=== PATIENT | female | born 1975 ===

== ENCOUNTER 2016-10-31 09:46 | Emergency (ER) | payer OTHER ==
[2016-10-31 10:03] VITALS: BP 128/69; PULSE 144; TEMP 97; BMI 20.3
[2016-10-31 10:07] VITALS: O2SAT 98
[2016-10-31] MEDS ORDERED: Sodium Chloride 0.9% 1,000 ML IV STA (10:22)
[2016-10-31 11:05] LABS: BASO # 0.1 K/uL (0.0-0.2); EOS # 0.1 K/uL (0.0-0.7); EOS % 0.8 % (0.0-4.0); HEMATOCRIT 41.1 % (34.0-47.0); LYMPH # 1.9 K/uL (1.0-4.3); LYMPH % 28.1 % (20.0-40.0); MEAN CELL VOLUME 95.2 fl (81.0-99.0); MEAN CORPUSCULAR HEMOGLOBIN 31.6 pg (27.0-31.0); MEAN CORPUSCULAR HGB CONC 33.2 g/dL (33.0-37.0); MONO # 0.5 K/uL (0.0-0.8); MONO % 7.3 % (0.0-10.0); NEUT # 4.3 K/uL (1.8-7.0); NEUT % 62.8 % (50.0-75.0); NRBC % 0.3 % (0.0-0.0); RED CELL DISTRIBUTION WIDTH 14.2 % (11.5-14.5); WHITE BLOOD COUNT 6.8 K/uL (4.8-10.8)
--- NOTE | 2016-10-31 11:13 | ED PDOC ---
HPI: Female Pain Time Seen by Provider: 10/31/16 10:07 Chief Complaint (Nursing): Female Genitourinary Chief Complaint (Provider): Vaginal bleeding History Per: Patient History/Exam Limitations: no limitations Onset/Duration Of Symptoms: Days (5) Current Symptoms Are (Timing): Still Present Severity: Mild Additional Complaint(s): Vaginal bleeding for 5 days. Mild spotting. Period is suppose to come next week. Has no pain. No pelvic pain, weakness. No headache, dyspnea, dysuria. No fever. Has IUD in for 7 years and wants ER to take it out. Has tachycardia and has been seen by the dish carrier for it. States it is normal for her and gets high when nervous. Past Medical History Reviewed: Nursing Documentation, Vital Signs Vital Signs: Last Vital Signs Temp 97 F L 10/31/16 10:02 Pulse 144 H 10/31/16 10:02 Resp BP 128/69 10/31/16 10:02 Pulse Ox 98 10/31/16 10:04 - Medical History PMH: No Chronic Diseases - Surgical History Surgical History: No Surg Hx - Family History Family History: States: Unknown Family Hx - Living Arrangements Living Arrangements: With Family - Immunization History Hx Tetanus Toxoid Vaccination: No Hx Influenza Vaccination: No Hx Pneumococcal Vaccination: No - Allergies Allergies/Adverse Reactions: Allergies Allergy/AdvReac Type Severity Reaction Status Date / Time No Known Allergies Allergy Verified 10/31/16 10:03 Review of Systems Constitutional: Negative for: Weakness Cardiovascular: Negative for: Chest Pain, Palpitations Gastrointestinal: Negative for: Nausea, Vomiting, Abdominal Pain, Diarrhea Genitourinary Female: Positive for: Vaginal Bleeding. Negative for: Dysuria, Frequency, Vaginal Discharge Musculoskeletal: Negative for: Neck Pain, Shoulder Pain, Arm Pain Skin: Negative for: Rash Neurological: Negative for: Weakness Physical Exam - Reviewed Nursing Documentation Reviewed: Yes Vital Signs Reviewed: Yes - Physical Exam Appears: Positive for: Well, Non-toxic, No Acute Distress Neck: Positive for: Normal, Painless ROM, Supple Cardiovascular/Chest: Positive for: Chest Non Tender, Tachycardia (sinus). Negative for: Edema Respiratory: Positive for: CNT, Normal Breath Sounds Gastrointestinal/Abdominal: Positive for: Normal Exam, Bowel Sounds, Soft. Negative for: Tenderness Back: Positive for: Normal Inspection. Negative for: L CVA Tenderness, R CVA Tenderness Extremity: Positive for: Normal ROM. Negative for: Tenderness, Pedal Edema Neurologic/Psych: Positive for: Alert, Oriented - Laboratory Results Result Diagrams: 10/31/16 10:30 10/31/16 10:50 Interpretation Of Abn Labs: no acute - ECG O2 Sat by Pulse Oximetry: 98 Pulse Ox Interpretation: Normal - CT Scan/US US Other Rad Studies (CT/US): Read By Radiologist Other Rad Interpretation: IUD in place - Progress ED Course And Treament: 1257: Stable. AAOx3. Pain free. Tolerated PO. Fu with obgyn. Disposition - Clinical Impression Clinical Impression: Vaginal bleeding - Patient ED Disposition Is Patient to be Admitted: No Counseled Patient/Family Regarding: Studies Performed, Diagnosis, Need For Followup - Disposition [facility] - [facility]16 Disposition: Routine/Home Disposition Time: 12:58 Condition: FAIR Additional Instructions: Return if not better in 3 days. Instructions: Dysfunctional Uterine Bleeding (ED) Print Language: CITIZEN OF [place]
[2016-10-31 11:19] LABS: ALB/GLOB RATIO 1.2 (1.0-2.1); ALKALINE PHOSPHATASE 77 U/L (38-126); ALT/SGPT 54 U/L (9-52); AST/SGOT 36 U/L (14-36); BILIRUBIN,TOTAL 0.3 mg/dl (0.2-1.3); BLOOD UREA NITROGEN 8 mg/dl (7-17); CARBON DIOXIDE 25 mmol/L (22-30); CHLORIDE 104 mmol/L (98-107); GFR AFRICAN-AMERICAN > 60; GLUCOSE,RANDOM 120 mg/dL (65-105); POTASSIUM 4.1 MMOL/L (3.6-5.0); SODIUM 138 mmol/l (132-148); TOTAL PROTEIN 7.4 G/DL (6.3-8.2)
--- NOTE | 2016-10-31 12:42 | US ---
HISTORY: Vaginal bleeding. LMP 10/12/2016. COMPARISON: None available. TECHNIQUE: Transabdominal, transvaginal. Real -time technique with 2D, duplex and color Doppler. FINDINGS: UTERUS: Measures 13.8 x 6.6 x 5.4 cm. Normal in size and appearance. No fibroid or other mass lesion seen. ENDOMETRIUM: Measures 4.6 mm in diameter. Intrauterine contraceptive device (IUD) identified CERVIX: No cervical abnormality identified. RIGHT OVARY: Measures 2.4 x 4.5 cm. No solid mass. Normal flow. Multiple subcentimeter follicles. LEFT OVARY: Measures 2.1 x 3.6 cm. No solid mass. Normal flow. Simple cyst 1.9 x 2.3 cm. FREE FLUID: No significant free fluid noted. OTHER FINDINGS: None. IMPRESSION: No acute findings related to/accounting for the clinical presentation. Additional benign and/or incidental findings described above.
== END 2016-10-31 13:09 | disposition home or self-care (01) ==
LOC: H.ER 09:46
DX: N93.8 Other specified abnormal uterine and vaginal bleeding (principal)

== ENCOUNTER 2018-10-17 06:38 | Emergency (ER) | payer OTHER ==
[2018-10-17 06:38] VITALS: BMI 20.3
--- NOTE | 2018-10-17 08:21 | ED PDOC ---
HPI: General Adult Time Seen by Provider: 10/17/18 07:03 Chief Complaint (Nursing): Headache Chief Complaint (Provider): Neck Pain History Per: Patient History/Exam Limitations: no limitations Onset/Duration Of Symptoms: Days (x2-3 ) Current Symptoms Are (Timing): Still Present Additional Complaint(s): Patient is a 42 y/o female with a PMHx of breast cancer who was brought into the ED by EMS for evaluation of left-sided neck pain for the past two to three days. Patient was given a hard cervical collar on the field to keep neck in place. Patient reports no inciting factors, recent injuries, falls, or over exertion. Patient claims the pain has worsened in the last 24 hours. Patient took one dose of Percocet, this morning at 3:30, followed by 400 mg of Ibuprofen. Patient denies fever, photophobia, and weakness in upper extremities. Of note, patient has been getting radiation treatment for her breast cancer in [place]. PCP: Salvador Epperson Past Medical History Reviewed: Historical Data, Nursing Documentation, Vital Signs Vital Signs: Last Vital Signs Temp 98.3 F 10/17/18 06:46 Pulse 99 H 10/17/18 06:46 Resp 17 10/17/18 06:46 BP 134/90 10/17/18 06:46 Pulse Ox 97 10/17/18 06:46 - Medical History Other PMH: Breast cancer - Surgical History Surgical History: No Surg Hx - Family History Family History: States: Unknown Family Hx - Immunization History Hx Tetanus Toxoid Vaccination: No Hx Influenza Vaccination: No Hx Pneumococcal Vaccination: No - Home Medications Home Medications: Ambulatory Orders Medication Instructions Recorded Cyclobenzaprine [Cyclobenzaprine 10 mg PO TID #30 tab 10/17/18 HCl] Naproxen [Naprosyn] 500 mg PO BID PRN #20 tablet 10/17/18 - Allergies Allergies/Adverse Reactions: Allergies Allergy/AdvReac Type Severity Reaction Status Date / Time No Known Allergies Allergy Verified 10/31/16 10:03 Review of Systems ROS Statement: Except As Marked, All Systems Reviewed And Found Negative Constitutional: Negative for: Fever, Weakness (in upper extremities) Eyes: Negative for: Vision Change (or photophobia) Musculoskeletal: Positive for: Neck Pain (on left side). Negative for: Other (raidation of pain to upper extremities) Physical Exam - Reviewed Nursing Documentation Reviewed: Yes Vital Signs Reviewed: Yes - Physical Exam Appears: Positive for: No Acute Distress Head Exam: Positive for: ATRAUMATIC, NORMAL INSPECTION, NORMOCEPHALIC Skin: Positive for: Normal Color, Warm, DRY Eye Exam: Positive for: EOMI, Normal appearance, PERRL Neck: Positive for: Normal (with focal tenderness in left side of neck towards base of skull) Cardiovascular/Chest: Positive for: Regular Rate, Rhythm. Negative for: Murmur Respiratory: Positive for: Normal Breath Sounds. Negative for: Respiratory Distress Extremity: Positive for: Normal ROM, Other (Hand vamp stitcher are normal; 5/5 motor strength bilaterally) Neurologic/Psych: Positive for: Alert, Oriented - Laboratory Results Result Diagrams: 10/17/18 07:40 10/17/18 09:21 - ECG ECG: Positive for: Viewed By Me ECG Rhythm: Positive for: Normal QRS O2 Sat by Pulse Oximetry: 97 (RA) Pulse Ox Interpretation: Normal - Radiology X-Ray: Viewed By Me X-Ray Interpretation: No Acute Disease (straightening c/w spasm) - Progress Re-evaluation Time: 10:45 Condition: Improving,but remains with symptoms Medical Decision Making Medical Decision Making: Time: 731 Impression: Acute Neck Pain DDx includes but not limited to muscle spasm (possibly caused by breast cancer); r/o fracture. Plan: BMP Test CBC Cervical Spine [Rad] Flexeril 10mg PO Toradol 30mg IVP Urine Culture IV Insertion UA Scribe Attestation: Documented by Feliciano Leos, acting as a scribe for Shannan Fritz MD. Provider Scribe Attestation: All medical record entries made by the Scribe were at my direction and personally dictated by me. I have reviewed the chart and agree that the record a ccurately reflects my personal performance of the history, physical exam, medical decision making, and the department course for this patient. I have also personally directed, reviewed, and agree with the discharge instructions and disposition. Disposition - Clinical Impression Clinical Impression: Muscle spasms of neck - Patient ED Disposition Is Patient to be Admitted: No Doctor Will See Patient In The: Office Counseled Patient/Family Regarding: Diagnosis, Need For Followup, Rx Given - Disposition Disposition: Routine/Home Disposition Time: 10:45 Condition: IMPROVED Prescriptions: Cyclobenzaprine [Cyclobenzaprine HCl] 10 mg PO TID #30 tab Naproxen [Naprosyn] 500 mg PO BID PRN #20 tablet PRN Reason: Pain, Moderate (4-7) Instructions: Muscle Spasms (DC) Forms: [facility] (Bengali) Print Language: CROATIAN - POA Present On Arrival: None
[2018-10-17 08:33] LABS: BASO % 0.3 % (0.0-2.0); EOS # 0.1 K/uL (0.0-0.7); EOS % 0.8 % (0.0-4.0); LYMPH # 0.2 K/uL (1.0-4.3); LYMPH % 2.5 % (20.0-40.0); MEAN CELL VOLUME 83.7 fl (81.0-99.0); MEAN CORPUSCULAR HEMOGLOBIN 27.3 pg (27.0-31.0); MEAN CORPUSCULAR HGB CONC 32.6 g/dL (33.0-37.0); MEAN PLATELET VOLUME 8.1 fl (7.2-11.7); MONO # 0.7 K/uL (0.0-0.8); MONO % 9.9 % (0.0-10.0); NEUT # 6.2 K/uL (1.8-7.0); NEUT % 86.5 % (50.0-75.0); PLATELET COUNT 397 K/uL (130-400); RBC 4.77 Mil/uL (3.80-5.20); RED CELL DISTRIBUTION WIDTH 18.4 % (11.5-14.5); WHITE BLOOD COUNT 7.2 K/uL (4.8-10.8)
[2018-10-17 10:10] LABS: SQUAMOUS EPITHIAL 1 /hpf (0-5); URINE AMORPHOUS SEDIMENT RARE /ul (<OCC); URINE BACTERIA RARE (<OCC); URINE BILIRUBIN NEGATIVE (NEGATIVE); URINE BLOOD NEGATIVE (NEGATIVE); URINE CLARITY SLIGHTY-CLOUDY (Clear); URINE COLOR YELLOW (YELLOW); URINE GLUCOSE (UA) NEG (NEGATIVE); URINE LEUKOCYTE ESTERASE NEG Leu/uL (Negative); URINE PROTEIN NEGATIVE (NEGATIVE); URINE UROBILINOGEN 0.2-1.0 mg/dL (0.2-1.0)
[2018-10-17 10:19] LABS: BLOOD UREA NITROGEN 5 mg/dl (7-17); CALCIUM 10.4 mg/dL (8.4-10.2); GFR NON-AFRICAN AMERICAN > 60
[2018-10-17 11:35] VITALS: BP 115/74; PULSE 75; RESP 16; TEMP 97.9; O2SAT 99
--- NOTE | 2018-10-17 11:47 | RAD ---
Date of service: 10/17/2018 PROCEDURE: Cervical Spine Radiographs. HISTORY: Pain. COMPARISON: None available. FINDINGS: BONES: Alignment maintained. No fracture. Dens Intact. DISC SPACES: Mild multilevel disc space narrowing. SOFT TISSUES: Normal. No prevertebral soft tissue swelling. OTHER FINDINGS: Patchy interstitial changes in the lungs. IMPRESSION: No acute fracture. Multilevel degenerative changes. Interstitial changes in the lungs, possibly representing metastatic disease. Correlate with prior imaging, if any. Alternatively, CT scan can be obtained for further evaluation. ER notification submitted electronically.
[2018-10-17 12:39] LABS: ANISOCYTOSIS SLIGHT; EOSINOPHIL 2 % (0-7); LYMPHOCYTE 4 % (20-50); MONOCYTE 9 % (0-10); NEUTROPHIL 85 % (42-75); PLATELET ESTIMATE NORMAL (NORMAL); TOTAL CELLS COUNTED 100
== END 2018-10-17 11:35 | disposition home or self-care (01) ==
LOC: H.ER 06:38
DX: M62.838 Other muscle spasm (principal); Z85.3 Personal history of malignant neoplasm of breast
CPT/HCPCS: 72052; 80048; 81003; 81025; 85025; 87086; 96374; 99284; J1885

== ENCOUNTER 2018-12-10 11:29 | Inpatient (IN) | payer OTHER ==
[2018-12-10 11:40] VITALS: BMI 18.8
[2018-12-10] MEDS ORDERED: Sodium Chloride 0.9% 1,000 ML IV STA (12:18)
[2018-12-10 12:35] LABS: BASO % 0.2 % (0.0-2.0); EOS % 0.4 % (0.0-4.0); HEMOGLOBIN 12.5 g/dL (12.0-16.0); LYMPH # 0.1 K/uL (1.0-4.3); LYMPH % 2.7 % (20.0-40.0); MEAN CELL VOLUME 86.7 fl (81.0-99.0); MEAN CORPUSCULAR HEMOGLOBIN 28.4 pg (27.0-31.0); MEAN CORPUSCULAR HGB CONC 32.8 g/dL (33.0-37.0); MONO # 0.4 K/uL (0.0-0.8); MONO % 9.3 % (0.0-10.0); NEUT % 87.4 % (50.0-75.0); NRBC % 0.3 % (0.0-0.0); PLATELET COUNT 328 K/uL (130-400); RBC 4.38 Mil/uL (3.80-5.20); RED CELL DISTRIBUTION WIDTH 18.6 % (11.5-14.5); WHITE BLOOD COUNT 4.5 K/uL (4.8-10.8)
--- NOTE | 2018-12-10 12:44 | ED PDOC ---
HPI: SOB/CHF/COPD Time Seen by Provider: 12/10/18 11:53 Chief Complaint (Nursing): Shortness Of Breath Chief Complaint (Provider): Chest Pain History Per: Patient, Diagnostics Tech (Kiara ) History/Exam Limitations: no limitations Onset/Duration Of Symptoms: Days Current Symptoms Are (Timing): Still Present Associated Symptoms: Chest Pain, Productive Cough. denies: Fever, Leg/Calf Pain Additional Complaint(s): 43 year old female with a past medical history of breast cancer who is presenting to the Ed for evaluation of chest pain described as tightness ongoing for about a week. Patient states that she also has a cough productive of white sputum but denies any fevers or leg pain. She reports that she had her last radiation treatment 3 days ago and reports similar symptoms in the past that were less severe. Patient offers no other medical complaints at this time. PMD: Salvador Andino Radiation Oncologist: Dr. Jesse Delvalle [phone] Past Medical History Reviewed: Historical Data, Nursing Documentation, Vital Signs Vital Signs: Last Vital Signs Temp 98 F 12/10/18 11:42 Pulse 125 H 12/10/18 11:42 Resp 16 12/10/18 11:42 BP 127/88 12/10/18 11:42 Pulse Ox 93 L 12/10/18 11:42 Primary Care Physician: NO FAMILY PROVIDER - Medical History Other PMH: breast cancer - Surgical History Surgical History: No Surg Hx - Family History Family History: States: Unknown Family Hx - Social History Current smoker - smoking cessation education provided: No Alcohol: None Drugs: Denies - Immunization History Hx Tetanus Toxoid Vaccination: No Hx Influenza Vaccination: No Hx Pneumococcal Vaccination: No - Allergies Allergies/Adverse Reactions: Allergies Allergy/AdvReac Type Severity Reaction Status Date / Time No Known Allergies Allergy Verified 10/31/16 10:03 Review of Systems ROS Statement: Except As Marked, All Systems Reviewed And Found Negative Constitutional: Negative for: Fever Cardiovascular: Positive for: Chest Pain Respiratory: Positive for: Cough, Sputum Musculoskeletal: Negative for: Leg Pain Physical Exam - Reviewed Nursing Documentation Reviewed: Yes Vital Signs Reviewed: Yes - Physical Exam Appears: Positive for: Non-toxic, No Acute Distress Head Exam: Positive for: ATRAUMATIC, NORMAL INSPECTION, NORMOCEPHALIC Skin: Positive for: Normal Color, Warm, DRY Eye Exam: Positive for: EOMI, Normal appearance, PERRL ENT: Positive for: Normal ENT Inspection Neck: Positive for: Normal, Painless ROM Cardiovascular/Chest: Positive for: Tachycardia (but regular rhythm ), Other (CHEST WALL: Large ulcerated mass R breast/chest wall). Negative for: Murmur Respiratory: Positive for: Normal Breath Sounds. Negative for: Respiratory Distress Gastrointestinal/Abdominal: Positive for: Normal Exam, Soft. Negative for: Tenderness Back: Positive for: Normal Inspection. Negative for: L CVA Tenderness, R CVA Tenderness, Vertebral Tenderness Extremity: Positive for: Normal ROM. Negative for: Deformity, Swelling Neurological/Psych: Positive for: Awake, Alert, Normal Tone, Oriented. Negative for: Motor/Sensory Deficits - Laboratory Results Result Diagrams: 12/10/18 12:00 12/10/18 12:00 - ECG O2 Sat by Pulse Oximetry: 93 (RA) Medical Decision Making Medical Decision Making: Time: 12:15 Plan: --CT Angio Chest --EKG --CMP --Troponin --ED Urine --ED Urine Dipstick --CBC --Coags --CXR --IV Fluids --Blood Culture --Urinalysis Accession No. : [id number] Patient Name / ID : ALIN SANDRA / [id number] Exam Date : 12/10/2018 13:27:36 ( Approved ) Study Comment : Sex / Age : F / 43Y Creator : Gaudencio Hernandez MD Dictator : Gaudencio Hernandez MD Store Person : Crusher Loader Equipment Operator : Gaudencio Hernandez MD Approver2 : Report Date : 12/10/2018 14:13:23 My Comment : Date of service: 12/10/2018 HISTORY: Shortness of breath. COMPARISON: December 10, 2018. CT pulmonary angiogram. FINDINGS: LUNGS: Multifocal infiltrates difficult to differentiate from multiple pulmonary nodules. PLEURA: Left pleural effusion inseparable from adjacent consolidative change. CARDIOVASCULAR: No atherosclerotic calcification present Normal. OSSEOUS STRUCTURES: No significant abnormalities. VISUALIZED UPPER ABDOMEN: Normal. OTHER FINDINGS: None. IMPRESSION: Pulmonary metastatic disease. Large left pleural effusion. Accession No. : [id number] Patient Name / ID : ALIN SANDRA / [id number] Exam Date : 12/10/2018 13:14:58 ( Approved ) Study Comment : Sex / Age : F / 43Y Creator : Braxton Cook MD Dictator : Braxton Cook MD Store Person : Crusher Loader Equipment Operator : Braxton Cook MD Approver2 : Report Date : 12/10/2018 13:57:39 My Comment : Date of service: 12/10/2018 PROCEDURE: CT Chest with contrast (Pulmonary Angiogram) HISTORY: CP COMPARISON: None available. TECHNIQUE: Axial computed tomography images were obtained of the chest in the pulmonary arterial phase of enhancement. Coronal and sagittal reformatted images were created and reviewed. Intravenous contrast dose: Visipaque 320, 100 cc Radiation dose: Total exam DLP = 208.43 mGy-cm. This CT exam was performed using one or more of the following dose reduction techniques: Automated exposure control, adjustment of the mA and/or kV according to patient size, and/or use of iterative reconstruction technique. FINDINGS: PULMONARY ARTERIES: No pulmonary embolism identified bilaterally. However there at least partial encasement of multiple proximal segmental pulmonary artery branches bilaterally due to metastasis/lymphadenopathy. Same is true for multiple proximal segmental pulmonary veins bilaterally. AORTA: No acute findings. No thoracic aortic aneurysm. No aortic atherosclerotic calcification or mural plaque present. LUNGS: There are innumerable bilateral pulmonary masses compatible with metastases with a large right breast mass with likely ulceration at its mid to inferior extent predominantly, invading through the right chest wall (including anterior segment right 6th rib) and into the right upper lobe directly. The central airways appear patent though there is a least partial encasement of numerous proximal segmental airways bilaterally by masses and lymphadenopathy. Mass severely strictures right upper lobe bronchus best seen image 39 series 5. PLEURAL SPACES: There is a large left pleural effusion with a mild right pleural effusion. Compression atelectasis affects the left greater than right lower lobes with confluent masses favored over infiltrates at the lingula. HEART: Unremarkable. No cardiomegaly. No significant pericardial effusion. LYMPH NODES: Bilateral hilar lymphadenopathy identified on a moderate basis [id number] subcarinal lymphadenopathy difficult to exclude. BONES, CHEST WALL: Glass opacity within the right pedicle and spinous process of T11 is highly suspicious for metastasis. Old fractures of the lateral left 8th and right 7th ribs are identified.. As mentioned above, there is partial erosion of the anterior segment right 6th rib from direct right breast mass extension into the right upper lobe. OTHER FINDINGS: Small lucency representing a cyst or nodule left thyroid lobe. Upper abdomen sections unremarkable as imaged. IMPRESSION: 1. No definite pulmonary embolus identified. 2. Large right breast mass is appreciated with superficial ulceration and deep extension through the right chest wall into the right upper lobe with innumerable pulmonary metastases bilaterally. There is a least partial encasement of multiple proximal segmental pulmonary arteries and veins as well as airways including complete encasement of the cysts right upper lobe bronchus by mass, as discussed above. 3. Large left pleural effusion and mild right pleural effusion, with both exerting compression atelectasis at the bilateral lower lobes. 4. T11 posterior element metastasis suspected. 5. Small lucency left thyroid lobe. Scribe Attestation: Documented by Basilia Hester, acting as a scribe for Sadia Lovelace MD. Provider Scribe Attestation: All medical record entries made by the Scribe were at my direction and personally dictated by me. I have reviewed the chart and agree that the record accurately reflects my personal performance of the history, physical exam, medical decision making, and the department course for this patient. I have also personally directed, reviewed, and agree with the discharge instructions and disposition. Disposition - Clinical Impression Clinical Impression: Breast carcinoma metastatic to multiple sites, Pleural effusion - Patient ED Disposition Is Patient to be Admitted: Yes - Disposition Referrals: FAMILY PROVIDER,NO [Primary Care Provider] - Disposition Time: 14:26 Condition: STABLE Forms: [employer] ([place]) - Pt Status Changed To: Hospital Disposition Of: Inpatient - Admit Certification Admit to Inpatient:: After my assessment, the patient will require hospitalization for at least two midnights. This is because of the severity of symptoms shown, intensity of services needed, and/or the medical risk in this patient being treated as an outpatient. - POA Present On Arrival: None
[2018-12-10 12:49] LABS: ALT/SGPT 19 U/L (9-52); AST/SGOT 72 U/L (14-36); BLOOD UREA NITROGEN 4 mg/dl (7-17); CALCIUM 10.1 mg/dL (8.4-10.2); GFR NON-AFRICAN AMERICAN > 60
[2018-12-10 12:57] LABS: SQUAMOUS EPITHIAL 2 /hpf (0-5); URINE BILIRUBIN NEGATIVE (NEGATIVE); URINE BLOOD NEGATIVE (NEGATIVE); URINE CLARITY CLEAR (Clear); URINE COLOR STRAW (YELLOW); URINE GLUCOSE (UA) NEG (NEGATIVE); URINE LEUKOCYTE ESTERASE NEG Leu/uL (Negative); URINE PROTEIN NEGATIVE (NEGATIVE); URINE UROBILINOGEN 0.2-1.0 mg/dL (0.2-1.0)
[2018-12-10] MEDS ORDERED: Iodixanol 320 MG/ML 100 ML BOTTLE IV ONE (13:00)
[2018-12-10] MEDS ORDERED: Sodium Chloride 0.9% 50 ML IV ONE (13:01)
--- NOTE | 2018-12-10 14:01 | CT ---
Date of service: 12/10/2018 PROCEDURE: CT Chest with contrast (Pulmonary Angiogram) HISTORY: CP COMPARISON: None available. TECHNIQUE: Axial computed tomography images were obtained of the chest in the pulmonary arterial phase of enhancement. Coronal and sagittal reformatted images were created and reviewed. Intravenous contrast dose: Visipaque 320, 100 cc Radiation dose: Total exam DLP = 208.43 mGy-cm. This CT exam was performed using one or more of the following dose reduction techniques: Automated exposure control, adjustment of the mA and/or kV according to patient size, and/or use of iterative reconstruction technique. FINDINGS: PULMONARY ARTERIES: No pulmonary embolism identified bilaterally. However there at least partial encasement of multiple proximal segmental pulmonary artery branches bilaterally due to metastasis/lymphadenopathy. Same is true for multiple proximal segmental pulmonary veins bilaterally. AORTA: No acute findings. No thoracic aortic aneurysm. No aortic atherosclerotic calcification or mural plaque present. LUNGS: There are innumerable bilateral pulmonary masses compatible with metastases with a large right breast mass with likely ulceration at its mid to inferior extent predominantly, invading through the right chest wall (including anterior segment right 6th rib) and into the right upper lobe directly. The central airways appear patent though there is a least partial encasement of numerous proximal segmental airways bilaterally by masses and lymphadenopathy. Mass severely strictures right upper lobe bronchus best seen image 39 series 5. PLEURAL SPACES: There is a large left pleural effusion with a mild right pleural effusion. Compression atelectasis affects the left greater than right lower lobes with confluent masses favored over infiltrates at the lingula. HEART: Unremarkable. No cardiomegaly. No significant pericardial effusion. LYMPH NODES: Bilateral hilar lymphadenopathy identified on a moderate basis [id number] subcarinal lymphadenopathy difficult to exclude. BONES, CHEST WALL: Glass opacity within the right pedicle and spinous process of T11 is highly suspicious for metastasis. Old fractures of the lateral left 8th and right 7th ribs are identified.. As mentioned above, there is partial erosion of the anterior segment right 6th rib from direct right breast mass extension into the right upper lobe. OTHER FINDINGS: Small lucency representing a cyst or nodule left thyroid lobe. Upper abdomen sections unremarkable as imaged. IMPRESSION: 1. No definite pulmonary embolus identified. 2. Large right breast mass is appreciated with superficial ulceration and deep extension through the right chest wall into the right upper lobe with innumerable pulmonary metastases bilaterally. There is a least partial encasement of multiple proximal segmental pulmonary arteries and veins as well as airways including complete encasement of the cysts right upper lobe bronchus by mass, as discussed above. 3. Large left pleural effusion and mild right pleural effusion, with both exerting compression atelectasis at the bilateral lower lobes. 4. T11 posterior element metastasis suspected. 5. Small lucency left thyroid lobe.
--- NOTE | 2018-12-10 14:16 | RAD ---
Date of service: 12/10/2018 HISTORY: Shortness of breath. COMPARISON: December 10, 2018. CT pulmonary angiogram. FINDINGS: LUNGS: Multifocal infiltrates difficult to differentiate from multiple pulmonary nodules. PLEURA: Left pleural effusion inseparable from adjacent consolidative change. CARDIOVASCULAR: No atherosclerotic calcification present Normal. OSSEOUS STRUCTURES: No significant abnormalities. VISUALIZED UPPER ABDOMEN: Normal. OTHER FINDINGS: None. IMPRESSION: Pulmonary metastatic disease. Large left pleural effusion.
[2018-12-10 14:41] LABS: BANDS 1 % (0-2); LYMPHOCYTE 2 % (20-50); MONOCYTE 10 % (0-10); NEUTROPHIL 87 % (42-75); PLATELET ESTIMATE NORMAL (NORMAL); TOTAL CELLS COUNTED 100
[2018-12-10 14:42] LABS: ANISOCYTOSIS SLIGHT; OVALOCYTES SLIGHT
--- NOTE | 2018-12-10 18:24 | CARD ---
APPROVED REPORT Date of service: 12/10/2018 EKG Measurement Heart [id number] <Conclusion> Sinus tachycardia Nonspecific T wave abnormality Abnormal ECG
[2018-12-10] MEDS ORDERED: Albuterol-Ipratrop 3 mg / 0.5 (3 ml) UD INH PRN (18:34)
[2018-12-11 06:11] LABS: HEMOGLOBIN 11.4 g/dL (12.0-16.0); MEAN CELL VOLUME 87.2 fl (81.0-99.0); MEAN CORPUSCULAR HEMOGLOBIN 28.5 pg (27.0-31.0); MEAN CORPUSCULAR HGB CONC 32.7 g/dL (33.0-37.0); RBC 4.01 Mil/uL (3.80-5.20); RED CELL DISTRIBUTION WIDTH 18.3 % (11.5-14.5)
[2018-12-11 06:23] LABS: ALBUMIN 3.7 g/dL (3.5-5.0); ALT/SGPT 17 U/L (9-52); AST/SGOT 65 U/L (14-36); BLOOD UREA NITROGEN 3 mg/dl (7-17); GFR NON-AFRICAN AMERICAN > 60
[2018-12-11] MEDS: Enoxaparin 40 mg Syringe SC SCH (10:20)
[2018-12-11 20:41] LABS: INR 1.2; PARTIAL THROMBOPLASTIN TIME 33.9 Seconds (25.6-37.1); PROTHROMBIN TIME 13.1 Seconds (9.8-13.1)
--- NOTE | 2018-12-11 23:22 | CP.PCM.CON ---
History of Present Illness - History of Present Illness History of Present Illness: 43 year old female with a history of breast cancer diagnosed in 2016 currently on radiation admitted with pleural effusion. The patient notes to being diagnosed with breast cancer in 2016 at [facility] with recommendation for neoadjuvant chemotherapy. She deferred therapy. She notes to recently starting radiation and breast mass shrinking. She notes to progressive shortness of breath which prompted her to come to the hospital. A CT chest revealed a right sided breast tumor eroding through the chest wall and involving the lung. She has evidence of bilateral lung metastasis and large left pleural effusion. She also has a T11 lesion, likely metastasis. Past medical history: Breast cancer Past surgical history: Denies Family history: Denies hematologic and oncologic problems Social history: Denies tobacco, alcohol, and illicit drug use. Allergies: NKA Review of system: All remaining review of systems including HEENT, cardiovascular, respiratory, gastrointestinal, genitourinary, musculoskeletal, dermatologic, neurologic, and psychiatric are negative unless mentioned in the HPI. Past Patient History - Past Medical History & Family History Past Medical History?: Yes - Past Social History Smoking Status: Never Smoked - CARDIAC Hx Cardiac Disorders: No - HEMATOLOGICAL/ONCOLOGICAL Other/Comment: breast cancer - MUSCULOSKELETAL/RHEUMATOLOGICAL Hx Falls: No - GENITOURINARY/GYNECOLOGICAL Other/Comment: breast CA on radiation. - PSYCHIATRIC Hx Substance Use: No - ANESTHESIA Hx Anesthesia: Yes Hx Anesthesia Reactions: No Hx Malignant Hyperthermia: No Meds Allergies/Adverse Reactions: Allergies Allergy/AdvReac Type Severity Reaction Status Date / Time No Known Allergies Allergy Verified 10/31/16 10:03 - Medications Medications: Current Medications Albuterol/Ipratropium (Duoneb 3 Mg/0.5 Mg (3 Ml) Ud) 3 ml INH RQ6 PRN PRN Reason: Shortness of Breath Docusate Sodium (Colace) 100 mg PO BID [facility] Last Admin: 12/11/18 17:35 Dose: 100 mg Enoxaparin Sodium (Lovenox) 40 mg SC DAILY [facility]; Protocol Last Admin: 12/11/18 10:20 Dose: 40 mg Morphine Sulfate (Morphine) 1 mg IVP Q4 PRN PRN Reason: Pain, moderate (4-7) Last Admin: 12/11/18 21:48 Dose: 1 mg Physical Exam - Head Exam Head Exam: ATRAUMATIC - Eye Exam Eye Exam: Normal appearance - ENT Exam ENT Exam: Mucous Membranes Dry - Respiratory Exam Respiratory Exam: Decreased Breath Sounds - Cardiovascular Exam Cardiovascular Exam: +S1, +S2 - GI/Abdominal Exam GI & Abdominal Exam: Normal Bowel Sounds - Extremities Exam Extremities exam: Positive for: normal inspection - Neurological Exam Neurological exam: Oriented x3 - Psychiatric Exam Psychiatric exam: Normal Affect, Normal Mood - Skin Skin Exam: Warm Results - Vital Signs Recent Vital Signs: Last Vital Signs Temp 98.7 F 12/11/18 18:58 Pulse 128 H 12/11/18 21:00 Resp 20 12/11/18 18:58 BP 106/67 12/11/18 18:58 Pulse Ox 92 L 12/11/18 18:58 - Labs Result Diagrams: 12/11/18 05:22 12/11/18 05:22 Labs: Laboratory Results - last 24 hr 12/10/18 12/11/18 12/11/18 12:00 05:22 05:22 WBC 4.0 L RBC 4.01 Hgb 11.4 L Hct 34.9 MCV 87.2 MCH 28.5 MCHC 32.7 L RDW 18.3 H Plt Count 301 PT 13.1 INR 1.2 APTT 33.9 Sodium 140 Potassium 4.0 Chloride 103 Carbon Dioxide 25 Anion Gap 16 BUN 3 L Creatinine 0.4 L Est GFR ( Amer) > 60 Est GFR (Non-Af Amer) > 60 Random Glucose 80 Calcium 10.0 Total Bilirubin 0.5 AST 65 H ALT 17 Alkaline Phosphatase 122 Total Protein 7.4 Albumin 3.7 Globulin 3.6 Albumin/Globulin Ratio 1.0 Vitamin B12 897 TSH 3rd Generation 0.67 Urine HCG, Qual 12/11/18 09:30 WBC RBC Hgb Hct MCV MCH MCHC RDW Plt Count PT INR APTT Sodium Potassium Chloride Carbon Dioxide Anion Gap BUN Creatinine Est GFR ( Amer) Est GFR (Non-Af Amer) Random Glucose Calcium Total Bilirubin AST ALT Alkaline Phosphatase Total Protein Albumin Globulin Albumin/Globulin Ratio Vitamin B12 TSH 3rd Generation Urine HCG, Qual Negative Assessment & Plan (1) Pleural effusion Assessment and Plan: suspect malignant pleural effusion recommend thoracentesis with cytology evaluation Status: Acute (2) Anemia Assessment and Plan: mild suspect chronic disease from malignancy Status: Acute (3) Breast carcinoma metastatic to multiple sites Assessment and Plan: lung and bone mets suspect malignant pleural effusion outpatient therapy if patient agreeable Thank you for this interesting consult. Status: Acute
[2018-12-12] MEDS: Enoxaparin 40 mg Syringe SC SCH (09:20)
--- NOTE | 2018-12-12 21:07 | CP.PCM.PN ---
Subjective - Date & Time of Evaluation Date of Evaluation: 12/12/18 Time of Evaluation: 20:00 - Subjective Subjective: Seen eating. Objective - Vital Signs/Intake and Output Vital Signs (last 24 hours): Temp Pulse Resp BP Pulse Ox 98.5 F 122 H 18 110/75 95 12/12/18 20:04 12/12/18 20:41 12/12/18 20:04 12/12/18 20:04 12/12/18 20:04 Intake and Output: 12/12/18 12/13/18 18:59 06:59 Intake Total 1200 Balance 1200 - Medications Medications: Current Medications Albuterol/Ipratropium (Duoneb 3 Mg/0.5 Mg (3 Ml) Ud) 3 ml INH RQ6 PRN PRN Reason: Shortness of Breath Docusate Sodium (Colace) 100 mg PO BID [facility] Last Admin: 12/12/18 17:21 Dose: 100 mg Dextrose/Sodium Chloride (Dextrose 5%/0.9% Ns 1000 Ml) 1,000 mls @ 80 mls/hr IV .[id number] REPLACED BY [facility] Stop: 12/13/18 21:16 Morphine Sulfate (Morphine) 1 mg IVP Q4 PRN PRN Reason: Pain, moderate (4-7) Last Admin: 12/11/18 21:48 Dose: 1 mg - Labs Labs: 12/11/18 05:22 12/11/18 05:22 PT 13.1 Seconds (9.8-13.1) 12/10/18 12:00 INR 1.2 12/10/18 12:00 APTT 33.9 Seconds (25.6-37.1) 12/10/18 12:00 - Head Exam Head Exam: ATRAUMATIC - Eye Exam Eye Exam: Normal appearance - ENT Exam ENT Exam: Mucous Membranes Dry - Respiratory Exam Respiratory Exam: Decreased Breath Sounds - Cardiovascular Exam Cardiovascular Exam: +S1, +S2 - GI/Abdominal Exam GI & Abdominal Exam: Normal Bowel Sounds Assessment and Plan (1) Pleural effusion Assessment & Plan: suspect malignant for IR thoracentesis f/u cytology Status: Acute (2) Anemia Assessment & Plan: anemia of chronic disease from malignancy Status: Acute (3) 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 malignant pleural effusion on palliative radiotherapy outpatient f/u if pt interested in systemic therapy Status: Acute
[2018-12-13] MEDS ORDERED: Dextrose 5%/0.9% NS 1,000 ML IV SCH (00:01)
--- NOTE | 2018-12-13 04:51 | CP.PCM.PN ---
Subjective - Date & Time of Evaluation Date of Evaluation: 12/11/18 Objective - Vital Signs/Intake and Output Vital Signs (last 24 hours): Temp Pulse Resp BP Pulse Ox 98.4 F 118 H 18 113/74 95 12/13/18 04:50 12/13/18 04:50 12/13/18 04:50 12/13/18 04:50 12/13/18 04:50 Intake and Output: 12/12/18 12/13/18 18:59 06:59 Intake Total 1200 Balance 1200 - Medications Medications: Current Medications Albuterol/Ipratropium (Duoneb 3 Mg/0.5 Mg (3 Ml) Ud) 3 ml INH RQ6 PRN PRN Reason: Shortness of Breath Docusate Sodium (Colace) 100 mg PO BID [facility] Last Admin: 12/12/18 17:21 Dose: 100 mg Dextrose/Sodium Chloride (Dextrose 5%/0.9% Ns 1000 Ml) 1,000 mls @ 80 mls/hr IV .[id number] [facility] Stop: 12/13/18 21:16 Last Admin: 12/13/18 00:13 Dose: 80 mls/hr Morphine Sulfate (Morphine) 1 mg IVP Q4 PRN PRN Reason: Pain, moderate (4-7) Last Admin: 12/12/18 22:02 Dose: 1 mg - Labs Labs: 12/11/18 05:22 12/11/18 05:22 PT 13.1 Seconds (9.8-13.1) 12/10/18 12:00 INR 1.2 12/10/18 12:00 APTT 33.9 Seconds (25.6-37.1) 12/10/18 12:00
--- NOTE | 2018-12-13 04:51 | CP.PCM.HP ---
History of Present Illness - History of Present Illness History of Present Illness: CC: SOB History of Present Illness: A 43 year old female with a past medical history of breast cancer who is presenting to the Ed for evaluation of chest pain described as tightness ongoing for about a week. Patient states that she also has a cough productive of white sputum but denies any fevers or leg pain. She reports that she had her last radiation treatment 3 days ago and reports similar symptoms in the past that were less severe. Patient offers no other medical complaints at this time. Present on Admission - Present on Admission Any Indicators Present on Admission: No Review of Systems - Review of Systems All systems: reviewed and no additional remarkable complaints except Review of Systems: except as per HPI Past Patient History - Past Medical History & Family History Past Medical History?: Yes Past Family History: Reviewed and not pertinent - Past Social History Smoking Status: Never Smoked Alcohol: None Drugs: Denies - CARDIAC Hx Cardiac Disorders: No - HEMATOLOGICAL/ONCOLOGICAL Other/Comment: breast cancer - MUSCULOSKELETAL/RHEUMATOLOGICAL Hx Falls: No - GENITOURINARY/GYNECOLOGICAL Other/Comment: breast CA on radiation. - PSYCHIATRIC Hx Substance Use: No - ANESTHESIA Hx Anesthesia: Yes Hx Anesthesia Reactions: No Hx Malignant Hyperthermia: No Meds Allergies/Adverse Reactions: Allergies Allergy/AdvReac Type Severity Reaction Status Date / Time No Known Allergies Allergy Verified 10/31/16 10:03 Physical Exam - Constitutional Appears: In Acute Distress, Chronically Ill - Head Exam Head Exam: ATRAUMATIC, NORMAL INSPECTION, NORMOCEPHALIC - Eye Exam Eye Exam: EOMI, Normal appearance, PERRL Pupil Exam: NORMAL ACCOMODATION, PERRL - ENT Exam ENT Exam: Mucous Membranes Moist, Normal Exam - Neck Exam Neck exam: Positive for: Normal Inspection - Respiratory Exam Respiratory Exam: Decreased Breath Sounds - Cardiovascular Exam Cardiovascular Exam: REGULAR RHYTHM, +S1, +S2 - GI/Abdominal Exam GI & Abdominal Exam: Normal Bowel Sounds, Soft. absent: Tenderness - Extremities Exam Extremities exam: Positive for: full ROM, normal capillary refill, normal inspection - Back Exam Back exam: NORMAL INSPECTION - Neurological Exam Neurological exam: Alert, CN II-XII Intact, Normal Gait, Oriented x3, Reflexes Normal - Psychiatric Exam Psychiatric exam: Normal Affect, Normal Mood - Skin Skin Exam: Dry, Intact, Normal Color, Warm Results - Vital Signs Recent Vital Signs: Last Vital Signs Temp 98.2 F 12/13/18 00:04 Pulse 126 H 12/13/18 00:04 Resp 16 12/13/18 00:04 BP 121/74 12/13/18 00:04 Pulse Ox 95 12/13/18 00:04 - Labs Result Diagrams: 12/11/18 05:22 12/11/18 05:22 - Imaging and Cardiology CT scan - chest Status: Report reviewed by me Additional comment: Date of service: 12/10/2018 PROCEDURE: CT Chest with contrast (Pulmonary Angiogram) HISTORY: CP COMPARISON: None available. TECHNIQUE: Axial computed tomography images were obtained of the chest in the pulmonary arterial phase of enhancement. Coronal and sagittal reformatted images were created and reviewed. Intravenous contrast dose: Visipaque 320, 100 cc Radiation dose: Total exam DLP = 208.43 mGy-cm. This CT exam was performed using one or more of the following dose reduction techniques: Automated exposure control, adjustment of the mA and/or kV according to patient size, and/or use of iterative reconstruction technique. FINDINGS: PULMONARY ARTERIES: No pulmonary embolism identified bilaterally. However there at least partial encasement of multiple proximal segmental pulmonary artery branches bilaterally due to metastasis/lymphadenopathy. Same is true for multiple proximal segmental pulmonary veins bilaterally. AORTA: No acute findings. No thoracic aortic aneurysm. No aortic atherosclerotic calcification or mural plaque present. LUNGS: There are innumerable bilateral pulmonary masses compatible with metastases with a large right breast mass with likely ulceration at its mid to inferior extent predominantly, invading through the right chest wall (including anterior segment right 6th rib) and into the right upper lobe directly. The central airways appear patent though there is a least partial encasement of numerous proximal segmental airways bilaterally by masses and lymphadenopathy. Mass severely strictures right upper lobe bronchus best seen image 39 series 5. PLEURAL SPACES: There is a large left pleural effusion with a mild right pleural effusion. Compression atelectasis affects the left greater than right lower lobes with confluent masses favored over infiltrates at the lingula. HEART: Unremarkable. No cardiomegaly. No significant pericardial effusion. LYMPH NODES: Bilateral hilar lymphadenopathy identified on a moderate basis [id number] subcarinal lymphadenopathy difficult to exclude. BONES, CHEST WALL: Glass opacity within the right pedicle and spinous process of T11 is highly suspicious for metastasis. Old fractures of the lateral left 8th and right 7th ribs are identified.. As mentioned above, there is partial erosion of the anterior segment right 6th rib from direct right breast mass extension into the right upper lobe. OTHER FINDINGS: Small lucency representing a cyst or nodule left thyroid lobe. Upper abdomen sections unremarkable as imaged. IMPRESSION: 1. No definite pulmonary embolus identified. 2. Large right breast mass is appreciated with superficial ulceration and deep extension through the right chest wall into the right upper lobe with innume rable pulmonary metastases bilaterally. There is a least partial encasement of multiple proximal segmental pulmonary arteries and veins as well as airways including complete encasement of the cysts right upper lobe bronchus by mass, as discussed above. 3. Large left pleural effusion and mild right pleural effusion, with both exerting compression atelectasis at the bilateral lower lobes. 4. T11 posterior element metastasis suspected. 5. Small lucency left thyroid lobe. Chest x-ray Status: Report reviewed by me Additional comment: Date of service: 12/10/2018 HISTORY: Shortness of breath. COMPARISON: December 10, 2018. CT pulmonary angiogram. FINDINGS: LUNGS: Multifocal infiltrates difficult to differentiate from multiple pulmonary nodules. PLEURA: Left pleural effusion inseparable from adjacent consolidative change. CARDIOVASCULAR: No atherosclerotic calcification present Normal. OSSEOUS STRUCTURES: No significant abnormalities. VISUALIZED UPPER ABDOMEN: Normal. OTHER FINDINGS: None. IMPRESSION: Pulmonary metastatic disease. Large left pleural effusion. Assessment & Plan (1) Anemia Status: Acute (2) Bilateral pleural effusion Status: Acute (3) Breast carcinoma metastatic to multiple sites Status: Acute (4) Hypoxemia requiring supplemental oxygen Status: Acute (5) Metastasis to lung Status: Acute (6) Status post thoracentesis Status: Acute - Assessment and Plan (Free Text) Plan: Oxygen Thoracentesis by interventional radiologist for large effusion Pleural fluid analysis Oncology consult Breast wound care daily Poor prognosis given extensive metastasis to the lungs and bones Palliative care consult
--- NOTE | 2018-12-13 04:52 | CP.PCM.PN ---
Subjective - Date & Time of Evaluation Date of Evaluation: 12/12/18 Objective - Vital Signs/Intake and Output Vital Signs (last 24 hours): Temp Pulse Resp BP Pulse Ox 98.4 F 118 H 18 113/74 95 12/13/18 04:50 12/13/18 04:50 12/13/18 04:50 12/13/18 04:50 12/13/18 04:50 Intake and Output: 12/12/18 12/13/18 18:59 06:59 Intake Total 1200 Balance 1200 - Medications Medications: Current Medications Albuterol/Ipratropium (Duoneb 3 Mg/0.5 Mg (3 Ml) Ud) 3 ml INH RQ6 PRN PRN Reason: Shortness of Breath Docusate Sodium (Colace) 100 mg PO BID [facility] Last Admin: 12/12/18 17:21 Dose: 100 mg Dextrose/Sodium Chloride (Dextrose 5%/0.9% Ns 1000 Ml) 1,000 mls @ 80 mls/hr IV .[id number] [facility] Stop: 12/13/18 21:16 Last Admin: 12/13/18 00:13 Dose: 80 mls/hr Morphine Sulfate (Morphine) 1 mg IVP Q4 PRN PRN Reason: Pain, moderate (4-7) Last Admin: 12/12/18 22:02 Dose: 1 mg - Labs Labs: 12/11/18 05:22 12/11/18 05:22 PT 13.1 Seconds (9.8-13.1) 12/10/18 12:00 INR 1.2 12/10/18 12:00 APTT 33.9 Seconds (25.6-37.1) 12/10/18 12:00
[2018-12-13] MEDS ORDERED: Lidocaine Hydrochloride 1% 10 ML ONE (12:41)
--- NOTE | 2018-12-13 12:53 | PCM.SURG1 ---
Surgeon's Initial Post Op Note - Surgeon's Notes Surgeon: Guillaume Krishna MD [employer] Aide: NONE Type of Anesthesia: Local Pre-Operative Diagnosis: Left pleural effusion, dyspnea Operative Findings: US showed large left pleural effusion Post-Operative Diagnosis: Left pleural effusion Operation Performed: US guided left thoracentesis Specimen/Specimens Removed: 1.4 liters of curtis colored fluid Estimated Blood Loss: EBL {In ML}: 0 Drains Used: No Drains Post-Op Condition: Fair Date of Surgery/Procedure: 12/13/18 Time of Surgery/Procedure: 12:50
--- NOTE | 2018-12-13 13:42 | RAD ---
Date of service: 12/13/2018 PROCEDURE: CHEST RADIOGRAPH, 1 VIEW HISTORY: Status post left thoracentesis. Right breast canceR COMPARISON: None available. FINDINGS: LUNGS: There is improved aeration of the left lung following thoracentesis. There is no left pneumothorax. Multiple pulmonary nodules again identified consistent with metastatic disease. PLEURA: CARDIOVASCULAR: OSSEOUS STRUCTURES: No significant abnormalities. VISUALIZED UPPER ABDOMEN: Normal. OTHER FINDINGS: Right breast mass. IMPRESSION: No pneumothorax following left thoracentesis.
[2018-12-13 14:22] LABS: BODY FLUID TYPE PLEURAL/THORACENTESI
[2018-12-13 14:38] LABS: AMYLASE,BODY FLUID < 30 mg/dL (NONE ESTABLISHED); GLUCOSE,BODY FLUID 97 mg/dL (NONE ESTABLISHED)
[2018-12-13 15:23] LABS: TOTAL PROTEIN,BODY FLUID 4.2 g/dL (NONE ESTABLISHED)
[2018-12-13 16:15] LABS: BF GROSS APPEARANCE SL CLOUDY (CLEAR)
[2018-12-13 16:58] LABS: BODY FLUID MONO/MACROPHAGE 50 % (0-0); BODY FLUID TOTAL COUNT 100 (0-0)
[2018-12-14] MEDS: Enoxaparin 40 mg Syringe SC SCH (09:07)
[2018-12-14] MEDS ORDERED: Sodium Chloride 0.9% 1,000 ML IV SCH (12:15)
--- NOTE | 2018-12-14 12:38 | CP.PCM.CON ---
History of Present Illness - History of Present Illness History of Present Illness: Palliative Care Consult Patient is a 43 year old female who came to the ED on 12/10 complaining of Chest Pain and SOB for 1 week. She also had complaints of cough with white sputum. Patient has a history of Breast Ca diagnosed in 2016 and she did not wish to have treatment at that time. Patient started receiving Palliative radiation and last treatment was 3 days prior to this admission. PMH: Breast ca Soc hx: Denies smoking,etoh, or drug use Fam hx: denies 12/[address]: No PE, large right breast mass with pulmonary metastasis Review of Systems - Review of Systems Review of Systems: ROS obtained from the patient in bed - Constitutional Additional comments: decrease appetite - Respiratory Respiratory: Pain with Coughing Past Patient History - Past Medical History & Family History Past Medical History?: Yes - Past Social History Smoking Status: Never Smoked - CARDIAC Hx Cardiac Disorders: No - HEMATOLOGICAL/ONCOLOGICAL Other/Comment: breast cancer - MUSCULOSKELETAL/RHEUMATOLOGICAL Hx Falls: No - GENITOURINARY/GYNECOLOGICAL Other/Comment: breast CA on radiation. - PSYCHIATRIC Hx Substance Use: No - ANESTHESIA Hx Anesthesia: Yes Hx Anesthesia Reactions: No Hx Malignant Hyperthermia: No Meds Allergies/Adverse Reactions: Allergies Allergy/AdvReac Type Severity Reaction Status Date / Time No Known Allergies Allergy Verified 10/31/16 10:03 - Medications Medications: Current Medications Albuterol/Ipratropium (Duoneb 3 Mg/0.5 Mg (3 Ml) Ud) 3 ml INH RQ6 PRN PRN Reason: Shortness of Breath Docusate Sodium (Colace) 100 mg PO BID [facility] Last Admin: 12/14/18 09:06 Dose: 100 mg Enoxaparin Sodium (Lovenox) 40 mg SC DAILY [facility]; Protocol Last Admin: 12/14/18 09:07 Dose: 40 mg Sodium Chloride (Sodium Chloride 0.9%) 1,000 mls @ 100 mls/hr IV .Q10H [facility] Stop: 12/15/18 12:09 Metronidazole (Flagyl) 500 mg PO DAILY [facility]; Protocol Last Admin: 12/14/18 09:07 Dose: 500 mg Morphine Sulfate (Morphine) 1 mg IVP Q4 PRN PRN Reason: Pain, moderate (4-7) Last Admin: 12/14/18 07:04 Dose: 1 mg Sodium Hypochlorite (Dakins Solution 0.125%) 0 appl TOP DAILY [facility] Last Admin: 12/14/18 09:06 Dose: 20 appl Physical Exam - Constitutional Appears: No Acute Distress, Chronically Ill - Head Exam Head Exam: ATRAUMATIC, NORMAL INSPECTION, NORMOCEPHALIC - Eye Exam Eye Exam: Normal appearance, PERRL - ENT Exam ENT Exam: Mucous Membranes Dry - Respiratory Exam Respiratory Exam: Decreased Breath Sounds - Cardiovascular Exam Cardiovascular Exam: Tachycardia - GI/Abdominal Exam GI & Abdominal Exam: Normal Bowel Sounds, Soft - Rectal Exam Rectal Exam: Deferred - Extremities Exam Extremities exam: Positive for: pedal pulses present - Neurological Exam Neurological exam: Alert, Oriented x3 - Psychiatric Exam Psychiatric exam: Normal Affect, Normal Mood - Skin Skin Exam: Dry, Pallor, Warm Results - Vital Signs Recent Vital Signs: Last Vital Signs Temp 97.8 F 12/14/18 12:12 Pulse 113 H 12/14/18 12:12 Resp 20 12/14/18 12:12 BP 92/59 L 12/14/18 12:12 Pulse Ox 95 12/14/18 12:12 - Labs Result Diagrams: 12/11/18 05:22 12/11/18 05:22 Labs: Laboratory Results - last 24 hr 12/13/18 12/13/18 14:19 14:19 Fluid Source Pleural/thoracentesi Fluid Appearance Sl cloudy Fluid WBC 108.0 Fluid RBC 4655.0 H Fluid Tot Cell Count 100 H Fluid Neutrophils 15.0 H Fluid Lymphocytes 35.0 H Fld Monocyte/Macrophag 50 H Fluid Glucose 97 Fluid Total Protein 4.2 Fluid LDH 2524 Fluid Amylase < 30 Fluid Comment Reddish Assessment & Plan - Assessment and Plan (Free Text) Assessment: Full Code, there is no advanced directive in the chart Palliative Performance Scale 50% I reviewed medical records, diagnostic studies, examined and interviewed the patient in bed Patient aaox3, not in acute distress, states pain is well controlled with ordered pain medications Patient friend at the bedside, permission given by patient for friend to listen to conversation Goals of care: discussion held with patient. She currently does not have any advanced directive or POLST on file. She says that she is thinking about many of the important decisions that may be needed in the future. She states that she has begun to talk to her about them. She agrees to document her GOALS of care on POLST form after having conversation with her . Her Francisco Gunter is her designated decision maker and can be reached at [phone]. Code Status: Patient is full code. patient verbalized her understanding of full code status Impression Breast Ca Pain decreased appetite decreased mobility Needs continued Goals of Care Discussion Suggestion Assess for pain q4h (IV pain meds available) Encourage PO feeds as tolerated Assist with ADLs and repositioning as needed Physical Therapy Will continue Goals of Care discussion Palliative Care will remain on board as needed Time spent with patient 50 min
[2018-12-14] MEDS: Sodium Chloride 0.9% 1,000 ML IV SCH (17:16)
--- NOTE | 2018-12-14 21:32 | CP.PCM.PN ---
Subjective - Date & Time of Evaluation Date of Evaluation: 12/13/18 Time of Evaluation: 19:00 - Subjective Subjective: Breathing better s/p thoracentesis Objective - Vital Signs/Intake and Output Vital Signs (last 24 hours): Temp Pulse Resp BP Pulse Ox 101.3 F H 120 H 17 105/63 94 L 12/14/18 19:44 12/14/18 19:44 12/14/18 19:44 12/14/18 19:44 12/14/18 19:44 Intake and Output: 12/14/18 12/15/18 18:59 06:59 Intake Total 850 Balance 850 - Medications Medications: Current Medications Albuterol/Ipratropium (Duoneb 3 Mg/0.5 Mg (3 Ml) Ud) 3 ml INH RQ6 PRN PRN Reason: Shortness of Breath Docusate Sodium (Colace) 100 mg PO BID [facility] Last Admin: 12/14/18 17:15 Dose: 100 mg Enoxaparin Sodium (Lovenox) 40 mg SC DAILY [facility]; Protocol Last Admin: 12/14/18 09:07 Dose: 40 mg Sodium Chloride (Sodium Chloride 0.9%) 1,000 mls @ 60 mls/hr IV .[id number] [facility] Stop: 12/15/18 12:09 Last Admin: 12/14/18 17:16 Dose: 60 mls/hr Metronidazole (Flagyl) 500 mg PO DAILY [facility]; Protocol Last Admin: 12/14/18 09:07 Dose: 500 mg Morphine Sulfate (Morphine) 1 mg IVP Q4 PRN PRN Reason: Pain, moderate (4-7) Last Admin: 12/14/18 07:04 Dose: 1 mg Sodium Hypochlorite (Dakins Solution 0.125%) 0 appl TOP DAILY [facility] Last Admin: 12/14/18 09:06 Dose: 20 appl - Labs Labs: 12/11/18 05:22 12/11/18 05:22 PT 13.1 Seconds (9.8-13.1) 12/10/18 12:00 INR 1.2 12/10/18 12:00 APTT 33.9 Seconds (25.6-37.1) 12/10/18 12:00 - Head Exam Head Exam: ATRAUMATIC - Eye Exam Eye Exam: Normal appearance - ENT Exam ENT Exam: Mucous Membranes Dry - Respiratory Exam Respiratory Exam: Decreased Breath Sounds - Cardiovascular Exam Cardiovascular Exam: +S1, +S2 - GI/Abdominal Exam GI & Abdominal Exam: Normal Bowel Sounds Assessment and Plan (1) Pleural effusion Assessment & Plan: suspect malignant s/p IR thoracentesis f/u cytology Status: Acute (2) Anemia Assessment & Plan: anemia of chronic disease from malignancy Status: Acute (3) 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 malignant pleural effusion on palliative radiotherapy outpatient f/u if pt interested in systemic therapy Status: Acute
--- NOTE | 2018-12-14 21:33 | CP.PCM.PN ---
Subjective - Date & Time of Evaluation Date of Evaluation: 12/14/18 Time of Evaluation: 18:00 - Subjective Subjective: Breathing better Objective - Vital Signs/Intake and Output Vital Signs (last 24 hours): Temp Pulse Resp BP Pulse Ox 101.3 F H 120 H 17 105/63 94 L 12/14/18 19:44 12/14/18 19:44 12/14/18 19:44 12/14/18 19:44 12/14/18 19:44 Intake and Output: 12/14/18 12/15/18 18:59 06:59 Intake Total 850 Balance 850 - Medications Medications: Current Medications Albuterol/Ipratropium (Duoneb 3 Mg/0.5 Mg (3 Ml) Ud) 3 ml INH RQ6 PRN PRN Reason: Shortness of Breath Docusate Sodium (Colace) 100 mg PO BID [facility] Last Admin: 12/14/18 17:15 Dose: 100 mg Enoxaparin Sodium (Lovenox) 40 mg SC DAILY [facility]; Protocol Last Admin: 12/14/18 09:07 Dose: 40 mg Sodium Chloride (Sodium Chloride 0.9%) 1,000 mls @ 60 mls/hr IV .[id number] [facility] Stop: 12/15/18 12:09 Last Admin: 12/14/18 17:16 Dose: 60 mls/hr Metronidazole (Flagyl) 500 mg PO DAILY [facility]; Protocol Last Admin: 12/14/18 09:07 Dose: 500 mg Morphine Sulfate (Morphine) 1 mg IVP Q4 PRN PRN Reason: Pain, moderate (4-7) Last Admin: 12/14/18 07:04 Dose: 1 mg Sodium Hypochlorite (Dakins Solution 0.125%) 0 appl TOP DAILY [facility] Last Admin: 12/14/18 09:06 Dose: 20 appl - Labs Labs: 12/11/18 05:22 12/11/18 05:22 PT 13.1 Seconds (9.8-13.1) 12/10/18 12:00 INR 1.2 12/10/18 12:00 APTT 33.9 Seconds (25.6-37.1) 12/10/18 12:00 - Head Exam Head Exam: ATRAUMATIC - Eye Exam Eye Exam: Normal appearance - ENT Exam ENT Exam: Mucous Membranes Dry - Respiratory Exam Respiratory Exam: Decreased Breath Sounds - Cardiovascular Exam Cardiovascular Exam: +S1, +S2 - GI/Abdominal Exam GI & Abdominal Exam: Normal Bowel Sounds Assessment and Plan (1) Pleural effusion Assessment & Plan: suspect malignant s/p IR thoracentesis f/u cytology Status: Acute (2) Anemia Assessment & Plan: anemia of chronic disease from malignancy Status: Acute (3) 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 malignant pleural effusion on palliative radiotherapy outpatient f/u if pt interested in systemic therapy Status: Acute
--- NOTE | 2018-12-15 00:27 | CP.PCM.PN ---
Subjective - Date & Time of Evaluation Date of Evaluation: 12/13/18 Objective - Vital Signs/Intake and Output Vital Signs (last 24 hours): Temp Pulse Resp BP Pulse Ox 99.2 F 120 H 17 114/74 98 12/15/18 00:08 12/15/18 00:08 12/15/18 00:08 12/15/18 00:08 12/15/18 00:08 Intake and Output: 12/14/18 12/15/18 18:59 06:59 Intake Total 850 Balance 850 - Medications Medications: Current Medications Albuterol/Ipratropium (Duoneb 3 Mg/0.5 Mg (3 Ml) Ud) 3 ml INH RQ6 PRN PRN Reason: Shortness of Breath Docusate Sodium (Colace) 100 mg PO BID [facility] Last Admin: 12/14/18 17:15 Dose: 100 mg Enoxaparin Sodium (Lovenox) 40 mg SC DAILY [facility]; Protocol Last Admin: 12/14/18 09:07 Dose: 40 mg Sodium Chloride (Sodium Chloride 0.9%) 1,000 mls @ 60 mls/hr IV .[id number] [facility] Stop: 12/15/18 12:09 Last Admin: 12/14/18 17:16 Dose: 60 mls/hr Metronidazole (Flagyl) 500 mg PO DAILY [facility]; Protocol Last Admin: 12/14/18 09:07 Dose: 500 mg Morphine Sulfate (Morphine) 1 mg IVP Q4 PRN PRN Reason: Pain, moderate (4-7) Last Admin: 12/14/18 22:05 Dose: 1 mg Sodium Hypochlorite (Dakins Solution 0.125%) 0 appl TOP DAILY [facility] Last Admin: 12/14/18 09:06 Dose: 20 appl - Labs Labs: 12/11/18 05:22 12/11/18 05:22 PT 13.1 Seconds (9.8-13.1) 12/10/18 12:00 INR 1.2 12/10/18 12:00 APTT 33.9 Seconds (25.6-37.1) 12/10/18 12:00
--- NOTE | 2018-12-15 00:28 | CP.PCM.PN ---
Subjective - Date & Time of Evaluation Date of Evaluation: 12/14/18 Objective - Vital Signs/Intake and Output Vital Signs (last 24 hours): Temp Pulse Resp BP Pulse Ox 99.2 F 120 H 17 114/74 98 12/15/18 00:08 12/15/18 00:08 12/15/18 00:08 12/15/18 00:08 12/15/18 00:08 Intake and Output: 12/14/18 12/15/18 18:59 06:59 Intake Total 850 Balance 850 - Medications Medications: Current Medications Albuterol/Ipratropium (Duoneb 3 Mg/0.5 Mg (3 Ml) Ud) 3 ml INH RQ6 PRN PRN Reason: Shortness of Breath Docusate Sodium (Colace) 100 mg PO BID [facility] Last Admin: 12/14/18 17:15 Dose: 100 mg Enoxaparin Sodium (Lovenox) 40 mg SC DAILY [facility]; Protocol Last Admin: 12/14/18 09:07 Dose: 40 mg Sodium Chloride (Sodium Chloride 0.9%) 1,000 mls @ 60 mls/hr IV .[id number] [facility] Stop: 12/15/18 12:09 Last Admin: 12/14/18 17:16 Dose: 60 mls/hr Metronidazole (Flagyl) 500 mg PO DAILY [facility]; Protocol Last Admin: 12/14/18 09:07 Dose: 500 mg Morphine Sulfate (Morphine) 1 mg IVP Q4 PRN PRN Reason: Pain, moderate (4-7) Last Admin: 12/14/18 22:05 Dose: 1 mg Sodium Hypochlorite (Dakins Solution 0.125%) 0 appl TOP DAILY [facility] Last Admin: 12/14/18 09:06 Dose: 20 appl - Labs Labs: 12/11/18 05:22 12/11/18 05:22 PT 13.1 Seconds (9.8-13.1) 12/10/18 12:00 INR 1.2 12/10/18 12:00 APTT 33.9 Seconds (25.6-37.1) 12/10/18 12:00
[2018-12-15] MEDS: Sodium Chloride 0.9% 1,000 ML IV SCH ×2 (05:15→09:05)
[2018-12-15] MEDS: Enoxaparin 40 mg Syringe SC SCH (07:59)
--- NOTE | 2018-12-15 12:16 | US ---
PROCEDURE: Date of procedure: 12/13/2018 Procedure: 1. Ultrasound-guided left thoracentesis, CPT 17998 Medications: 5cc 1% Lidocaine HISTORY: Left pleural effusion, shortness of breath TECHNIQUE: Following informed consent ,the Patients' left chest was marked. Procedure time-out was called, and the patient was placed in the sitting position and limited ultrasound showed a large left effusion. The patient's left back was prepped and draped in the usual sterile fashion. After the skin was anesthetized with lidocaine, a drainage catheter was advanced under ultrasound guidance into the pleural space. Ultrasound-guided thoracentesis was performed. A total of 1400 cubic centimeters of curtis-colored fluid removed without complication. A Xeroform dressing was applied. IMPRESSION: Ultrasound guided left thoracentesis. There were no immediate complications.
--- NOTE | 2018-12-15 12:27 | CP.PCM.PN ---
Subjective - Date & Time of Evaluation Date of Evaluation: 12/15/18 Time of Evaluation: 11:00 - Subjective Subjective: Breathing better, some cough Objective - Vital Signs/Intake and Output Vital Signs (last 24 hours): Temp Pulse Resp BP Pulse Ox 98.1 F 110 H 20 102/59 L 95 12/15/18 12:17 12/15/18 12:17 12/15/18 12:17 12/15/18 12:17 12/15/18 12:17 - Medications Medications: Current Medications Albuterol/Ipratropium (Duoneb 3 Mg/0.5 Mg (3 Ml) Ud) 3 ml INH RQ6 PRN PRN Reason: Shortness of Breath Docusate Sodium (Colace) 100 mg PO BID [facility] Last Admin: 12/15/18 07:59 Dose: 100 mg Enoxaparin Sodium (Lovenox) 40 mg SC DAILY [facility]; Protocol Last Admin: 12/15/18 07:59 Dose: 40 mg Metronidazole (Flagyl) 500 mg PO DAILY [facility]; Protocol Last Admin: 12/15/18 07:59 Dose: 500 mg Morphine Sulfate (Morphine) 1 mg IVP Q4 PRN PRN Reason: Pain, moderate (4-7) Last Admin: 12/15/18 09:03 Dose: 1 mg Sodium Hypochlorite (Dakins Solution 0.125%) 0 appl TOP DAILY [facility] Last Admin: 12/15/18 10:30 Dose: 1 appl - Labs Labs: 12/11/18 05:22 12/11/18 05:22 PT 13.1 Seconds (9.8-13.1) 12/10/18 12:00 INR 1.2 12/10/18 12:00 APTT 33.9 Seconds (25.6-37.1) 12/10/18 12:00 - Head Exam Head Exam: ATRAUMATIC - Eye Exam Eye Exam: Normal appearance - ENT Exam ENT Exam: Mucous Membranes Dry - Respiratory Exam Respiratory Exam: Decreased Breath Sounds, NORMAL BREATHING PATTERN - Cardiovascular Exam Cardiovascular Exam: +S1, +S2 - GI/Abdominal Exam GI & Abdominal Exam: Normal Bowel Sounds - Extremities Exam Extremities Exam: Normal Inspection Assessment and Plan (1) Pleural effusion Assessment & Plan: suspect malignant s/p IR thoracentesis f/u cytology - discussed with pathology to add ER/CT/HER2 if cytology positive for breast cancer Status: Acute (2) Anemia Assessment & Plan: anemia of chronic disease from malignancy Status: Acute (3) 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 malignant pleural effusion on palliative radiotherapy outpatient f/u if pt interested in systemic therapy Status: Acute
--- NOTE | 2018-12-15 13:38 | CP.PCM.CON ---
History of Present Illness - History of Present Illness History of Present Illness: Pulmonary consult for a 43 y/o F, s/p L thoracentesis 2nd to large L pleural effusion on 12/13/18, multiple lung metastasis on CT. Pt with no Hx of COPD,no former smoker but Hx of R Breast Ca on 2015, not treated at that time but now on Palliative radiation. Pt came to [facility] on 12/10/18 to be evaluated for severe SOB from a week, increased night [employer], associated to productive cough with whitish phlegms and upper back pain. Pt came to hospital due to no improvement. Worsening symptoms: BANGURA, Chest pain when coughing, also tachycardia, lack of appetite. Aggravated factor: ADL's, movements/exercise. Denied: Fever, chills, n/v/d, abdominal pain, urinary symptoms, CP, syncope, sick contact, recent travel out of [facility]. Chest CT revealed: Large R breast mass with deep extension to the R chest wall into the R upper lobe with multiple pulmonary metastases bilaterally. Large L pleural effusion and mild R pleural effusion. CXR: No Pneumothorax following thoracentesis. L pleural fluid cytology: Carcinoma, favoring Adenocarcinoma EKG: Sinus tachycardia. Review of Systems - Constitutional Constitutional: Weakness - EENT Eyes: Other (negative) Ears: Other (negtaive) Nose/Mouth/Throat: Other (negtaive) - Cardiovascular Cardiovascular: Rapid Heart Rate - Respiratory Respiratory: Cough, Dyspnea, Dyspnea on Exertion, Pain with Coughing - Gastrointestinal Gastrointestinal: Other (negative) - Genitourinary Genitourinary: Other (negative) - Musculoskeletal Musculoskeletal: Back Pain, Muscle Weakness - Integumentary Integumentary: Other (negative) - Neurological Neurological: Other (negative) - Psychiatric Psychiatric: Other (negative) - Endocrine Endocrine: Other (negative) - Hematologic/Lymphatic Hematologic: Other Past Patient History - Past Medical History & Family History Past Medical History?: Yes Pertinent Family History: Unknown - Past Social History Smoking Status: Never Smoked Alcohol: None Drugs: Denies Home Situation {Lives}: With Family - CARDIAC Hx Cardiac Disorders: No - PULMONARY Hx Respiratory Disorders: No - NEUROLOGICAL Hx Neurological Disorder: No - HEENT Hx HEENT Problems: No - RENAL Hx Chronic Kidney Disease: No - ENDOCRINE/METABOLIC Hx Endocrine Disorders: No - HEMATOLOGICAL/ONCOLOGICAL Hx Blood Disorders: Yes Hx Cancer: Yes (R breast on radiation.) Other/Comment: breast cancer - INTEGUMENTARY Hx Dermatological Problems: No - MUSCULOSKELETAL/RHEUMATOLOGICAL Hx Musculoskeletal Disorders: No Hx Falls: No - GASTROINTESTINAL Hx Gastrointestinal Disorders: No - GENITOURINARY/GYNECOLOGICAL Hx Genitourinary Disorders: No - PSYCHIATRIC Hx Psychophysiologic Disorder: No Hx Substance Use: No - ANESTHESIA Hx Anesthesia: Yes Hx Anesthesia Reactions: No Hx Malignant Hyperthermia: No Meds Allergies/Adverse Reactions: Allergies Allergy/AdvReac Type Severity Reaction Status Date / Time No Known Allergies Allergy Verified 10/31/16 10:03 - Medications Medications: Current Medications Albuterol/Ipratropium (Duoneb 3 Mg/0.5 Mg (3 Ml) Ud) 3 ml INH RQ6 PRN PRN Reason: Shortness of Breath Docusate Sodium (Colace) 100 mg PO BID [facility] Last Admin: 12/15/18 07:59 Dose: 100 mg Enoxaparin Sodium (Lovenox) 40 mg SC DAILY [facility]; Protocol Last Admin: 12/15/18 07:59 Dose: 40 mg Metronidazole (Flagyl) 500 mg PO DAILY [facility]; Protocol Last Admin: 12/15/18 07:59 Dose: 500 mg Morphine Sulfate (Morphine) 1 mg IVP Q4 PRN PRN Reason: Pain, moderate (4-7) Last Admin: 12/15/18 13:14 Dose: 1 mg Sodium Hypochlorite (Dakins Solution 0.125%) 0 appl TOP DAILY [facility] Last Admin: 12/15/18 10:30 Dose: 1 appl Physical Exam - Constitutional Appears: No Acute Distress, Chronically Ill - Head Exam Head Exam: NORMAL INSPECTION - Eye Exam Eye Exam: PERRL - ENT Exam ENT Exam: Normal Exam - Neck Exam Neck exam: Positive for: Normal Inspection - Respiratory Exam Respiratory Exam: Decreased Breath Sounds (b/l) Additional comments: Dessing R Breast, large ulcerating mass R Breast- Chest wall - Cardiovascular Exam Cardiovascular Exam: Tachycardia - GI/Abdominal Exam GI & Abdominal Exam: Normal Bowel Sounds, Soft - Extremities Exam Extremities exam: Positive for: normal inspection - Back Exam Back exam: NORMAL INSPECTION - Neurological Exam Neurological exam: Alert, Oriented x3 Additional comments: no focal motor/sensory deficit - Psychiatric Exam Psychiatric exam: Normal Mood - Skin Skin Exam: Warm Results - Vital Signs Recent Vital Signs: Last Vital Signs Temp 98.1 F 12/15/18 12:17 Pulse 110 H 12/15/18 12:17 Resp 20 12/15/18 12:17 BP 102/59 L 12/15/18 12:17 Pulse Ox 95 12/15/18 12:17 reviewed J.Rajni - Labs Result Diagrams: 12/11/18 05:22 12/11/18 05:22 Labs: reviewed J.P. - EKG Data EKG comments: reviewed J.P. - Imaging and Cardiology CT scan - chest Status: Report reviewed by me (Carla) Chest x-ray Status: Report reviewed by me (Carla) Assessment & Plan (1) Metastasis to lung Status: Acute Comment: Multiple. (2) Bilateral pleural effusion Status: Acute Comment: L large Malignancy on Cytology (3) Status post thoracentesis Status: Acute Comment: on left (4) Breast carcinoma metastatic to multiple sites Assessment and Plan: Right Status: Acute - Assessment and Plan (Free Text) Plan: Pt had Left thoracentesis with 1.4 liters of curtis colored fluid removed. Pleural Fluid consistent with carcinoma. Continue O2 NC 2 L/M, continue Duoneb, pain medication and rest of Tx., monitor for recurrent effusion - Date & Time Date: 12/15/18 Time: 11:00
[2018-12-16] MEDS: Enoxaparin 40 mg Syringe SC SCH (09:56)
--- NOTE | 2018-12-16 13:02 | PCM.PPROG ---
History of Present Illness - History of Present Illness History of Present Illness: examine patient in bed, still complaining of SOB which she feels is unchanged since admission, also complaining of lower back pain. Review of Systems - Review of Systems Review of Systems: obtained from patient in bed using hospital provided virtual lang interpreter - Constitutional Constitutional: Fatigue Additional comments: decrease appetite - Respiratory Respiratory: Dyspnea, Dyspnea on Exertion Additional comments: chest tightness - Musculoskeletal Musculoskeletal: Back Pain Physical Exam - Constitutional Appears: No Acute Distress, Chronically Ill - Head Exam Head Exam: ATRAUMATIC, NORMAL INSPECTION, NORMOCEPHALIC - Eye Exam Eye Exam: Normal appearance, PERRL - ENT Exam ENT Exam: Mucous Membranes Dry - Neck Exam Neck exam: Positive for: Normal Inspection - Respiratory Exam Respiratory Exam: Decreased Breath Sounds Additional comments: productive cough with white and yellow sputum - GI/Abdominal Exam GI & Abdominal Exam: Normal Bowel Sounds - Extremities Exam Extremities exam: Positive for: pedal pulses present - Neurological Exam Neurological exam: Alert, Oriented x3 - Psychiatric Exam Psychiatric exam: Normal Affect, Normal Mood - Skin Skin Exam: Dry, Normal Color, Warm Palliative Care Assessment - Pain Scale Pain Score: 4 Pain Scale Used: Numeric - Pain Location Upper or Lower: Lower Pain Location Body Site: Back - Pain Description Description: Intermittent Intensity of pain at present: 4 Pain Behavior: Facial Grimacing Aggravating Factors: Changing Position Alleviating Factors/Management Techniques: Medication - José Miguel Scale Sensory Perception: No Impairment Moisture: Occasionally Moist Activity: Walks Occasionally Mobility: Slightly Impaired Nutrition: Probably Inadequate Friction & Shear: No Apparent Problem Total Score - Skin Risk Assessment: 18 - Psychosocial Distress Patient screened for psychosocial distress: Yes Palliative Care - Goals Goal(s) of care: Goals of Care: Patient states that she would like to get treatment for her breast ca when she is discharged as much as she can tolerate. She verbalized understanding of her current medical conditions. She is concerned about her breathing difficulties as well and desires to try to improve her quality of life as much as she can. is decision maker if ever she is unable to make her own decisions. Code Status: Full Code Treatment Goal(s): Alleviate symptoms, Improve ADLs, Improve quality of life Assessment & Plan - Assessment and Plan (Free Text) Assessment: Impression Breast Ca Dyspnea Productive Cough Lower Back Pain Decrease Appetite Decrease Mobility Suggestion Outpt Oncology f/u when d/c continue respiratory treatments and O2 via nc Robitussin 200mg q4h prn Assess for pain q4h (prn IV pain meds available) Encourage PO intake as tolerated Continue PT Will Continue Goals of Care discussions as needed Palliative Care will remain on board as needed Time spent with patient 45 min
--- NOTE | 2018-12-16 14:07 | CP.PCM.PN ---
Subjective - Date & Time of Evaluation Date of Evaluation: 12/16/18 Time of Evaluation: 12:00 - Subjective Subjective: F/U Pulmonary consult. Awake, SOB, BANGURA without O2 NC, no CP with breathing. Objective - Vital Signs/Intake and Output Vital Signs (last 24 hours): Temp Pulse Resp BP Pulse Ox 98.0 F 102 H 20 113/76 94 L 12/16/18 11:47 12/16/18 11:47 12/16/18 11:47 12/16/18 11:47 12/16/18 11:47 - Medications Medications: Current Medications Albuterol/Ipratropium (Duoneb 3 Mg/0.5 Mg (3 Ml) Ud) 3 ml INH RQ6 PRN PRN Reason: Shortness of Breath Docusate Sodium (Colace) 100 mg PO BID [facility] Last Admin: 12/16/18 09:56 Dose: 100 mg Enoxaparin Sodium (Lovenox) 40 mg SC DAILY [facility]; Protocol Last Admin: 12/16/18 09:56 Dose: 40 mg Metronidazole (Flagyl) 500 mg PO DAILY [facility]; Protocol Last Admin: 12/16/18 09:56 Dose: 500 mg Morphine Sulfate (Morphine) 1 mg IVP Q4 PRN PRN Reason: Pain, moderate (4-7) Last Admin: 12/16/18 13:30 Dose: 1 mg Sodium Hypochlorite (Dakins Solution 0.125%) 0 appl TOP DAILY [facility] Last Admin: 12/16/18 09:56 Dose: 0.125 appl - Labs Labs: 12/11/18 05:22 12/11/18 05:22 PT 13.1 Seconds (9.8-13.1) 12/10/18 12:00 INR 1.2 12/10/18 12:00 APTT 33.9 Seconds (25.6-37.1) 12/10/18 12:00 - Constitutional Appears: No Acute Distress - Head Exam Head Exam: NORMAL INSPECTION - Eye Exam Eye Exam: PERRL - ENT Exam ENT Exam: Normal Exam - Neck Exam Neck Exam: Normal Inspection - Respiratory Exam Respiratory Exam: Decreased Breath Sounds (b/l) Additional comments: Dressing R breast, large ulcerating mass R breast-Chest wall. - Cardiovascular Exam Cardiovascular Exam: Tachycardia - GI/Abdominal Exam GI & Abdominal Exam: Soft, Normal Bowel Sounds - Extremities Exam Extremities Exam: Normal Inspection - Back Exam Back Exam: NORMAL INSPECTION - Neurological Exam Neurological Exam: Alert, Oriented x3 Additional comments: No focal motor/sensory deficit. - Psychiatric Exam Psychiatric exam: Normal Mood - Skin Skin Exam: Warm Assessment and Plan (1) Metastasis to lung Status: Acute (2) Bilateral pleural effusion Status: Acute (3) Status post thoracentesis Status: Acute (4) Breast carcinoma metastatic to multiple sites Status: Acute (5) Hypoxemia requiring supplemental oxygen Status: Acute - Assessment and Plan (Free Text) Plan: Continue O2 NC 2 L/M, Low Pulse OX on RA , Patient to have home O2, continue DuoNeb
[2018-12-17] MEDS: Enoxaparin 40 mg Syringe SC SCH (08:48)
--- NOTE | 2018-12-17 11:25 | CP.PCM.PN ---
Subjective - Date & Time of Evaluation Date of Evaluation: 12/15/18 Objective - Vital Signs/Intake and Output Vital Signs (last 24 hours): Temp Pulse Resp BP Pulse Ox 98.1 F 117 H 18 115/74 96 12/17/18 07:42 12/17/18 07:42 12/17/18 07:42 12/17/18 07:42 12/17/18 07:42 - Medications Medications: Current Medications Albuterol/Ipratropium (Duoneb 3 Mg/0.5 Mg (3 Ml) Ud) 3 ml INH RQ6 PRN PRN Reason: Shortness of Breath Docusate Sodium (Colace) 100 mg PO BID [facility] Last Admin: 12/17/18 08:47 Dose: 100 mg Metronidazole (Flagyl) 500 mg PO DAILY [facility]; Protocol Last Admin: 12/17/18 08:47 Dose: 500 mg Morphine Sulfate (Morphine) 1 mg IVP Q4 PRN PRN Reason: Pain, moderate (4-7) Last Admin: 12/16/18 22:58 Dose: 1 mg Sodium Hypochlorite (Dakins Solution 0.125%) 0 appl TOP DAILY [facility] Last Admin: 12/17/18 08:48 Dose: 20 appl - Labs Labs: 12/11/18 05:22 12/11/18 05:22 PT 13.1 Seconds (9.8-13.1) 12/10/18 12:00 INR 1.2 12/10/18 12:00 APTT 33.9 Seconds (25.6-37.1) 12/10/18 12:00 Assessment and Plan (1) Anemia Status: Acute (2) Bilateral pleural effusion Status: Acute (3) Breast carcinoma metastatic to multiple sites Status: Acute (4) Hypoxemia requiring supplemental oxygen Status: Acute (5) Metastasis to lung Status: Acute (6) Status post thoracentesis Status: Acute
--- NOTE | 2018-12-17 11:26 | CP.PCM.PN ---
Subjective - Date & Time of Evaluation Date of Evaluation: 12/16/18 Objective - Vital Signs/Intake and Output Vital Signs (last 24 hours): Temp Pulse Resp BP Pulse Ox 98.1 F 117 H 18 115/74 96 12/17/18 07:42 12/17/18 07:42 12/17/18 07:42 12/17/18 07:42 12/17/18 07:42 - Medications Medications: Current Medications Albuterol/Ipratropium (Duoneb 3 Mg/0.5 Mg (3 Ml) Ud) 3 ml INH RQ6 PRN PRN Reason: Shortness of Breath Docusate Sodium (Colace) 100 mg PO BID [facility] Last Admin: 12/17/18 08:47 Dose: 100 mg Metronidazole (Flagyl) 500 mg PO DAILY [facility]; Protocol Last Admin: 12/17/18 08:47 Dose: 500 mg Morphine Sulfate (Morphine) 1 mg IVP Q4 PRN PRN Reason: Pain, moderate (4-7) Last Admin: 12/16/18 22:58 Dose: 1 mg Sodium Hypochlorite (Dakins Solution 0.125%) 0 appl TOP DAILY [facility] Last Admin: 12/17/18 08:48 Dose: 20 appl - Labs Labs: 12/11/18 05:22 12/11/18 05:22 PT 13.1 Seconds (9.8-13.1) 12/10/18 12:00 INR 1.2 12/10/18 12:00 APTT 33.9 Seconds (25.6-37.1) 12/10/18 12:00 Assessment and Plan (1) Anemia Status: Acute (2) Bilateral pleural effusion Status: Acute (3) Breast carcinoma metastatic to multiple sites Status: Acute (4) Hypoxemia requiring supplemental oxygen Status: Acute (5) Metastasis to lung Status: Acute (6) Status post thoracentesis Status: Acute
[2018-12-17 15:34] VITALS: BP 100/66; PULSE 115; RESP 17; TEMP 98.6; O2SAT 92
--- NOTE | 2018-12-17 16:23 | CP.PCM.PN ---
Subjective - Date & Time of Evaluation Date of Evaluation: 12/17/18 Time of Evaluation: 14:30 - Subjective Subjective: F/U Pulmonary consult. no SOB, no BANGURA with O2 NC Objective - Vital Signs/Intake and Output Vital Signs (last 24 hours): Temp Pulse Resp BP Pulse Ox 98.6 F 115 H 17 100/66 92 L 12/17/18 15:33 12/17/18 15:33 12/17/18 15:33 12/17/18 15:33 12/17/18 15:33 - Medications Medications: Current Medications Albuterol/Ipratropium (Duoneb 3 Mg/0.5 Mg (3 Ml) Ud) 3 ml INH RQ6 PRN PRN Reason: Shortness of Breath Docusate Sodium (Colace) 100 mg PO BID [facility] Last Admin: 12/17/18 08:47 Dose: 100 mg Metronidazole (Flagyl) 500 mg PO DAILY [facility]; Protocol Last Admin: 12/17/18 08:47 Dose: 500 mg Morphine Sulfate (Morphine) 1 mg IVP Q4 PRN PRN Reason: Pain, moderate (4-7) Last Admin: 12/17/18 13:16 Dose: 1 mg Sodium Hypochlorite (Dakins Solution 0.125%) 0 appl TOP DAILY [facility] Last Admin: 12/17/18 08:48 Dose: 20 appl - Labs Labs: 12/11/18 05:22 12/11/18 05:22 PT 13.1 Seconds (9.8-13.1) 12/10/18 12:00 INR 1.2 12/10/18 12:00 APTT 33.9 Seconds (25.6-37.1) 12/10/18 12:00 - Constitutional Appears: No Acute Distress, Chronically Ill - Head Exam Head Exam: NORMAL INSPECTION - Eye Exam Eye Exam: PERRL - ENT Exam ENT Exam: Normal Exam - Neck Exam Neck Exam: Normal Inspection - Respiratory Exam Respiratory Exam: Decreased Breath Sounds (b/l) Additional comments: Dressing R breast, large ulcerating mass R breast-Chest wall - Cardiovascular Exam Cardiovascular Exam: Tachycardia - GI/Abdominal Exam GI & Abdominal Exam: Soft, Normal Bowel Sounds - Extremities Exam Extremities Exam: Normal Inspection - Back Exam Back Exam: NORMAL INSPECTION - Neurological Exam Neurological Exam: Alert, Oriented x3 Additional comments: No focal motor/sensory deficit - Psychiatric Exam Psychiatric exam: Normal Mood - Skin Skin Exam: Warm Assessment and Plan (1) Metastasis to lung Status: Acute (2) Bilateral pleural effusion Status: Acute (3) Status post thoracentesis Status: Acute (4) Breast carcinoma metastatic to multiple sites Status: Acute (5) Hypoxemia requiring supplemental oxygen Status: Acute - Assessment and Plan (Free Text) Plan: Pulmonary cleared for DD, continue O2 NC 24/7 , monitor with serial X ray's as out patient for recurrent pleural effusion, f/u PMD and Curriculum Coach learning and development consultant as out patient.
--- NOTE | 2018-12-17 21:29 | CP.PCM.PN ---
Subjective - Date & Time of Evaluation Date of Evaluation: 12/16/18 Time of Evaluation: 15:00 - Subjective Subjective: Feeling better. Objective - Vital Signs/Intake and Output Vital Signs (last 24 hours): Temp Pulse Resp BP Pulse Ox 98.6 F 115 H 17 100/66 92 L 12/17/18 15:33 12/17/18 15:33 12/17/18 15:33 12/17/18 15:33 12/17/18 15:33 Intake and Output: 12/17/18 12/18/18 18:59 06:59 Output Total 200 Balance -200 - Labs Labs: 12/11/18 05:22 12/11/18 05:22 PT 13.1 Seconds (9.8-13.1) 12/10/18 12:00 INR 1.2 12/10/18 12:00 APTT 33.9 Seconds (25.6-37.1) 12/10/18 12:00 - Head Exam Head Exam: ATRAUMATIC - Eye Exam Eye Exam: Normal appearance - ENT Exam ENT Exam: Mucous Membranes Dry - Respiratory Exam Respiratory Exam: Decreased Breath Sounds - Cardiovascular Exam Cardiovascular Exam: +S1, +S2 - GI/Abdominal Exam GI & Abdominal Exam: Normal Bowel Sounds Assessment and Plan (1) Pleural effusion Assessment & Plan: malignant effusions; f/u further testing s/p IR thoracentesis Status: Acute (2) Anemia Assessment & Plan: anemia of chronic disease from malignancy Status: Acute (3) 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 malignant pleural effusion on palliative radiotherapy outpatient f/u if pt interested in systemic therapy Status: Acute
--- NOTE | 2018-12-17 21:31 | CP.PCM.PN ---
Subjective - Date & Time of Evaluation Date of Evaluation: 12/17/18 Time of Evaluation: 10:00 - Subjective Subjective: Feeling better Objective - Vital Signs/Intake and Output Vital Signs (last 24 hours): Temp Pulse Resp BP Pulse Ox 98.6 F 115 H 17 100/66 92 L 12/17/18 15:33 12/17/18 15:33 12/17/18 15:33 12/17/18 15:33 12/17/18 15:33 Intake and Output: 12/17/18 12/18/18 18:59 06:59 Output Total 200 Balance -200 - Labs Labs: 12/11/18 05:22 12/11/18 05:22 PT 13.1 Seconds (9.8-13.1) 12/10/18 12:00 INR 1.2 12/10/18 12:00 APTT 33.9 Seconds (25.6-37.1) 12/10/18 12:00 - Head Exam Head Exam: ATRAUMATIC - Eye Exam Eye Exam: Normal appearance - ENT Exam ENT Exam: Mucous Membranes Dry - Respiratory Exam Respiratory Exam: Decreased Breath Sounds - Cardiovascular Exam Cardiovascular Exam: +S1, +S2 - GI/Abdominal Exam GI & Abdominal Exam: Normal Bowel Sounds Assessment and Plan (1) Pleural effusion Assessment & Plan: malignant effusion f/u hormonal status as outpatient Status: Acute (2) Anemia Assessment & Plan: anemia of chronic disease from malignancy Status: Acute (3) Breast carcinoma metastatic to multiple sites Assessment & Plan: appears to be stage IV lung and bone metastasis malignant pleural effusion on palliative radiotherapy outpatient f/u if pt interested in systemic therapy Status: Acute
== END 2018-12-17 18:40 | disposition home health service (06) | DRG 181 ==
LOC: SUPCPDRO 11:29 → H.ER 11:29 → H.ERHOLD 14:26 → H.TEL 15:52
PROVIDERS: ADMIT Internal Medicine; ATTEND Internal Medicine
PROC: 3E0F7GC Introduction of Other Therapeutic Substance into Respiratory Tract, Via Natural or Artificial Opening (ICD-10-PCS; 2018-12-10)
PROC: 0W9B30Z Drainage of Left Pleural Cavity with Drainage Device, Percutaneous Approach (ICD-10-PCS; principal; 2018-12-13)
DX: C78.02 Secondary malignant neoplasm of left lung (principal); J91.0 Malignant pleural effusion; C79.51 Secondary malignant neoplasm of bone; J98.11 Atelectasis; C78.01 Secondary malignant neoplasm of right lung; D63.0 Anemia in neoplastic disease; R09.02 Hypoxemia; Z85.3 Personal history of malignant neoplasm of breast; Z92.3 Personal history of irradiation; Z51.5 Encounter for palliative care

== ENCOUNTER 2018-12-23 11:33 | Inpatient (IN) | payer OTHER ==
[2018-12-23 11:38] VITALS: BMI 18.2
[2018-12-23] MEDS ORDERED: Albuterol-Ipratrop 3 mg / 0.5 (3 ml) UD INH STA (12:36)
--- NOTE | 2018-12-23 12:39 | ED PDOC ---
HPI: General Adult Time Seen by Provider: 12/23/18 12:10 Chief Complaint (Nursing): Back Pain Additional Complaint(s): 43 y/o F with a PMHx of breast cancer (presumed stage IV, metastasis to bone and lungs) presents to ED due to worsening SOB, non-productive cough, neck pain, upper back pain and generalized weakness. Pt was recently hospitalized due to pleural effusion. Left thoracentesis performed on 12/12/18, 1.4 L collected. Pt receiving palliative radiation and has appt with oncologist, Dr Ornelas, in 2 weeks. PMD: Currently none Oncologist: Dr Jesse Marcos; however, seems to be transitioned to Dr Ornelas NKDA MEDS: Percocet 5/325 PO PRN, receiving palliative radiation. PMHx: Breast cancer with metastasis to lungs and breast. PSHx: denied FHx: NC. No breast cancer or ovarian cancer in family. SHx: No tobacco. No alcohol. No rec drugs. Past Medical History Vital Signs: Last Vital Signs Temp 98.5 F 12/23/18 11:38 Pulse 126 H 12/23/18 11:38 Resp 18 12/23/18 11:38 BP 111/73 12/23/18 11:38 Pulse Ox 96 12/23/18 11:38 Primary Care Provider: Kim Porter - Medical History PMH: Denies: Chronic Kidney Disease Other PMH: Breast Cancer - Family History Family History: States: Unknown Family Hx - Social History Current smoker - smoking cessation education provided: No Ex-Smoker (has not smoked in the last 12 months): No Alcohol: None Drugs: Denies - Immunization History Hx Tetanus Toxoid Vaccination: No Hx Influenza Vaccination: No Hx Pneumococcal Vaccination: No - Home Medications Home Medications: Ambulatory Orders Medication Instructions Recorded Oxycodone HCl/Acetaminophen 1 tab PO BID 12/10/18 [Oxycodone-Acetaminophen 5-325] Ibuprofen [Advil] 400 mg PO Q8 PRN 12/23/18 - Allergies Allergies/Adverse Reactions: Allergies Allergy/AdvReac Type Severity Reaction Status Date / Time No Known Allergies Allergy Verified 10/31/16 10:03 Review of Systems Constitutional: Negative for: Fever, Chills ENT: Negative for: Ear Pain, Ear Discharge, Nose Pain Cardiovascular: Negative for: Chest Pain, Palpitations Respiratory: Positive for: Cough, Shortness of Breath. Negative for: Hemoptysis, Pleuritic Pain Gastrointestinal: Negative for: Vomiting, Abdominal Pain, Diarrhea Musculoskeletal: Positive for: Neck Pain, Back Pain Physical Exam - Physical Exam Appears: Positive for: Uncomfortable Head Exam: Positive for: ATRAUMATIC Skin: Positive for: Normal Color, Warm Eye Exam: Positive for: EOMI, PERRL ENT: Negative for: Nasal Congestion, Pharyngeal Erythema Neck: Positive for: Normal, Painless ROM, Supple Cardiovascular/Chest: Positive for: Tachycardia Respiratory: Positive for: Decreased Breath Sounds, Wheezing Gastrointestinal/Abdominal: Positive for: Bowel Sounds, Soft. Negative for: Tenderness, Mass, Distended, Guarding Extremity: Positive for: Normal ROM. Negative for: Tenderness, Pedal Edema, Calf Tenderness Neurological/Psych: Positive for: Awake, Alert - Laboratory Results Result Diagrams: 12/23/18 12:50 12/23/18 12:50 - ECG O2 Sat by Pulse Oximetry: 96 Medical Decision Making Medical Decision Makin:45 --CXR ordered --Duoneb ordered --CBC, CMP and coags ordered. 14:45 --CXR showed possible RADHA pneumonia, atelectasis or obstruction. --Will empirically treat for hospital acquired pneumonia since last admision was 1 week ago. --IV Vancomycin and IV Zosyn ordered. 15:00 --Pt is to be admitted for IV antibiotics and further evaluation and management. --Dr Porter was contacted and requested for pt to be admitted under hospitalist distribution a class lineman, pt admitted to Dr Mckeon's service. --Resident distribution a class lineman, Dr Enriqueta Barrett, was made aware. 15:55 --Due to persistent tachycardia and desaturation in low 90s and high 80s. Will order CTA of chest to r/o PE. Disposition - Clinical Impression Clinical Impression: Metastasis, Breast carcinoma metastatic to multiple sites - Patient ED Disposition Is Patient to be Admitted: Yes - Disposition Disposition Time: 15:00 Condition: FAIR - Pt Status Changed To: Hospital Disposition Of: Inpatient - Admit Certification Admit to Inpatient:: After my assessment, the patient will require hospitalization for at least two midnights. This is because of the severity of symptoms shown, intensity of services needed, and/or the medical risk in this patient being treated as an outpatient. - POA Present On Arrival: None
[2018-12-23] MEDS ORDERED: Albuterol-Ipratrop 3 mg / 0.5 (3 ml) UD ONE (12:41)
[2018-12-23 13:10] LABS: BASO % 0.5 % (0.0-2.0); EOS % 0.5 % (0.0-4.0); LYMPH # 0.1 K/uL (1.0-4.3); LYMPH % 3.4 % (20.0-40.0); MEAN CELL VOLUME 88.2 fl (81.0-99.0); MEAN CORPUSCULAR HEMOGLOBIN 28.7 pg (27.0-31.0); MEAN CORPUSCULAR HGB CONC 32.5 g/dL (33.0-37.0); MEAN PLATELET VOLUME 7.3 fl (7.2-11.7); MONO # 0.3 K/uL (0.0-0.8); MONO % 8.8 % (0.0-10.0); NEUT # 3.1 K/uL (1.8-7.0); NEUT % 86.8 % (50.0-75.0); NRBC % 0.3 % (0.0-0.0); PLATELET COUNT 322 K/uL (130-400); RBC 3.82 Mil/uL (3.80-5.20); RED CELL DISTRIBUTION WIDTH 18.9 % (11.5-14.5); WHITE BLOOD COUNT 3.6 K/uL (4.8-10.8)
[2018-12-23 13:18] LABS: INR 1.2; PROTHROMBIN TIME 13.9 Seconds (9.8-13.1)
[2018-12-23 13:21] LABS: PARTIAL THROMBOPLASTIN TIME 36.8 Seconds (25.6-37.1)
[2018-12-23 13:26] LABS: ALB/GLOB RATIO 0.9 (1.0-2.1); ALBUMIN 3.7 g/dL (3.5-5.0); ALT/SGPT 17 U/L (9-52); AST/SGOT 64 U/L (14-36); BLOOD UREA NITROGEN 5 mg/dl (7-17); CALCIUM 9.1 mg/dL (8.4-10.2); GFR NON-AFRICAN AMERICAN > 60
--- NOTE | 2018-12-23 14:12 | RAD ---
Date of service: 12/23/2018 HISTORY: 12/13/2018 COMPARISON: No prior. TECHNIQUE: Chest PA and lateral FINDINGS: LINES AND TUBES: None. LUNG AND PLEURA: The lungs are well inflated and clear. There are innumerable variable-sized metastatic deposits in both lungs. There is interval development of airspace disease in the left upper lobe likely related to atelectasis/pneumonia. Small effusions. No pneumothorax. HEART AND MEDIASTINUM: The heart is not enlarged. No aortic atherosclerotic calcifications present. The hilar and mediastinal contours are within normal limits. SKELETAL STRUCTURES: The bony structures are within normal limits for the patient's age. VISUALIZED UPPER ABDOMEN: Normal. OTHER FINDINGS: There is redemonstration of large soft tissue defect in the right breast. IMPRESSION: Interval development of left upper lobe airspace disease likely related to atelectasis/pneumonia, postobstructive etiology is a consideration. Diffuse pulmonary metastasis. Small effusions. Redemonstration of large soft tissue defect in the breast related to ulceration.
[2018-12-23 14:17] LABS: BANDS 1 % (0-2); LYMPHOCYTE 3 % (20-50); MONOCYTE 10 % (0-10); NEUTROPHIL 86 % (42-75); TOTAL CELLS COUNTED 100
[2018-12-23 14:18] LABS: ANISOCYTOSIS SLIGHT; PLATELET ESTIMATE NORMAL (NORMAL)
[2018-12-23 14:19] LABS: GIANT PLATELETS PRESENT; LARGE PLATELETS PRESENT; OVALOCYTES SLIGHT; SCHISTOCYTES SLIGHT
[2018-12-23] MEDS ORDERED: Piperacillin/Tazobact 3.375 GM in Sodium Chloride 0.9% 100 ML IVPB STA (14:27)
[2018-12-23] MEDS ORDERED: Piperacillin/Tazobact 3.375 gm Inj IVPB ONE (14:36)
[2018-12-23] MEDS ORDERED: Vancomycin 1 g Inj ONE (14:36)
[2018-12-23] MEDS: Sodium Chloride 0.9% 1,000 ML IV SCH ×2 (14:39→18:18)
[2018-12-23] MEDS ORDERED: Albuterol-Ipratrop 3 mg / 0.5 (3 ml) UD INH PRN (16:16)
[2018-12-23] MEDS ORDERED: Iodixanol 320 MG/ML 100 ML BOTTLE IV ONE (16:16)
[2018-12-23] MEDS ORDERED: Sodium Chloride 0.9% 50 ML IV ONE (16:17)
--- NOTE | 2018-12-23 17:15 | CT ---
Date of service: 12/23/2018 PROCEDURE: CT Chest with contrast (Pulmonary Angiogram) HISTORY: Tachycardia, SOB, Hx of breast cancer COMPARISON: CT angiogram chest 12/10/2018. TECHNIQUE: Axial computed tomography images were obtained of the chest in the pulmonary arterial phase of enhancement. Coronal and sagittal reformatted images were created and reviewed. Intravenous contrast dose: Visipaque 320, 80 cc Radiation dose: Total exam DLP = 207.13 mGy-cm. This CT exam was performed using one or more of the following dose reduction techniques: Automated exposure control, adjustment of the mA and/or kV according to patient size, and/or use of iterative reconstruction technique. FINDINGS: PULMONARY ARTERIES: Unremarkable. No pulmonary embolism. AORTA: No acute findings. No thoracic aortic aneurysm. No aortic atherosclerotic calcification or mural plaque present. LUNGS: Widespread diffuse pulmonary metastasis are reiterated bilaterally. Dense infiltrate is identified at the left upper lobe as well as at the superior segment left lower lobe posteriorly. Compressive atelectasis is seen related to the bilateral lower lobes due to stable mild right pleural effusion and diminished left pleural effusion. Central airways are grossly clear though occasion of central airways is identified in several cases due to lymphadenopathy and metastatic tissue. Trachea is widely patent. Trace pneumothorax at the right chest anteriorly, less than 5 percent. No left pneumothorax. HEART: Unremarkable. No cardiomegaly. No significant pericardial effusion. LYMPH NODES: Mediastinal and bilateral hilar adenopathy reiterated including the subcarinal space once again. 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 L2 metastasis suggested, not captured in the prior exam. OTHER FINDINGS: Left thyroid lobe nodule or cyst again evident. This right breast mass again evident including ulceration superficially. IMPRESSION: 1. Widespread metastases are again identified with new consolidation identified in the left upper lobe and superior segment left lower lobe. 2. Trace right pneumothorax anteriorly. 3. Persistent mild pleural effusion. Diminished left pleural effusion appears [id number] volume at this time. Findings discussed with Dr. Gage with written down and read back verification 12/23/2018 5:03 p.m..
[2018-12-23] MEDS ORDERED: Sodium Chloride 0.9% 1,000 ML IV STA (17:41)
[2018-12-23 18:10] LABS: SQUAMOUS EPITHIAL 6 /hpf (0-5); URINE AMORPHOUS SEDIMENT RARE /ul (<OCC); URINE BACTERIA RARE (<OCC); URINE BILIRUBIN NEGATIVE (NEGATIVE); URINE BLOOD MODERATE (NEGATIVE); URINE CLARITY CLOUDY (Clear); URINE COLOR YELLOW (YELLOW); URINE GLUCOSE (UA) NEG (NEGATIVE); URINE LEUKOCYTE ESTERASE NEG Leu/uL (Negative); URINE PROTEIN NEGATIVE (NEGATIVE); URINE UROBILINOGEN 0.2-1.0 mg/dL (0.2-1.0)
--- NOTE | 2018-12-23 18:23 | CP.PCM.CON ---
History of Present Illness - History of Present Illness History of Present Illness: Cardiothoracic Surgery Consult for Dr. Rodriguez Reason for consult: pneumothorax, lung mets 43 F with a PMHof breast cancerstage IV, metastasis to bone and lungs with recurrent pleural effusions presents to [facility] due to worsening SOB. Patient was seen and evaluated in the ED. Patient also reports that she has been experiencing non-productive cough, neck pain, upper back pain and generalized weakness. The pain was also increasing and did not respond to her pain medications. Patient was recently hospitalized due to SOB and pleural effusions. A Left thoracentesis was performed on 12/12/18 where 1.4 L was removed. Patient has been receiving palliative radiation and follow up Dr Ornelas in [address] chest in the ED was done and revealed consolidations, pleural effusions, mets, 5% anterior pneumothorax (see full report). PMH: Breast cancer with metastasis to lungs and breast. PSH: denies ALL: NKDA Review of Systems - Review of Systems All systems: reviewed and no additional remarkable complaints except (as per hPI) Past Patient History - Infectious Disease Hx of Infectious Diseases: None - Past Medical History & Family History Past Medical History?: Yes - Past Social History Alcohol: None Drugs: Denies - CARDIAC Hx Cardiac Disorders: No - PULMONARY Hx Respiratory Disorders: No - NEUROLOGICAL Hx Neurological Disorder: No - HEENT Hx HEENT Problems: No - RENAL Hx Chronic Kidney Disease: No - ENDOCRINE/METABOLIC Hx Endocrine Disorders: No - HEMATOLOGICAL/ONCOLOGICAL Other/Comment: breast cancer - INTEGUMENTARY Hx Dermatological Problems: No - MUSCULOSKELETAL/RHEUMATOLOGICAL Hx Falls: No - GASTROINTESTINAL Hx Gastrointestinal Disorders: No - GENITOURINARY/GYNECOLOGICAL Other/Comment: breast CA on radiation. - PSYCHIATRIC Hx Psychophysiologic Disorder: No Hx Substance Use: No - ANESTHESIA Hx Anesthesia: Yes Hx Anesthesia Reactions: No Hx Malignant Hyperthermia: No Meds Allergies/Adverse Reactions: Allergies Allergy/AdvReac Type Severity Reaction Status Date / Time No Known Allergies Allergy Verified 10/31/16 10:03 - Medications Medications: Current Medications Acetaminophen (Tylenol 325mg Tab) 650 mg PO Q6 PRN PRN Reason: Pain, Mild (1-3) Acetaminophen (Tylenol 325mg Tab) 650 mg PO Q6 PRN PRN Reason: Fever >100.4 F Enoxaparin Sodium (Lovenox) 40 mg SC DAILY [facility]; Protocol Sodium Chloride (Sodium Chloride 0.9%) 1,000 mls @ 100 mls/hr IV .Q10H [facility] Stop: 12/24/18 14:27 Last Admin: 12/23/18 14:39 Dose: 100 mls/hr Sodium Chloride (Sodium Chloride 0.9%) 1,000 mls @ 100 mls/hr IV .Q10H [facility] Last Admin: 12/23/18 18:18 Dose: Not Given Piperacillin Sod/Tazobactam (Sod 3.375 gm/ Sodium Chloride) 100 mls @ 100 mls/hr IVPB Q6 [facility]; Protocol Vancomycin HCl 1 gm/ Sodium (Chloride) 250 mls @ 166.667 mls/hr IVPB Q12 [facility]; Protocol Levofloxacin/Dextrose (Levaquin 750mg) 750 mg in 150 mls @ 100 mls/hr IVPB DAILY [facility]; Protocol Sodium Chloride (Sodium Chloride 0.9%) 1,000 mls @ 1,000 mls/hr IV .Q1H STA Stop: 12/23/18 18:40 Last Admin: 12/23/18 17:35 Dose: 1,000 mls/hr Ketorolac Tromethamine (Toradol) 15 mg IVP Q6 PRN PRN Reason: Pain, moderate (4-7) Levalbuterol HCl (Xopenex) 0.63 mg INH RQ8 [facility] Morphine Sulfate (Morphine) 2 mg IVP Q6 PRN PRN Reason: Pain, severe (8-10) Ondansetron HCl (Zofran Inj) 4 mg IVP Q6 PRN PRN Reason: Nausea/Vomiting Physical Exam - Constitutional Appears: Cachectic, Chronically Ill - Head Exam Head Exam: ATRAUMATIC, NORMOCEPHALIC - Eye Exam Eye Exam: EOMI Pupil Exam: PERRL - ENT Exam ENT Exam: Mucous Membranes Dry - Respiratory Exam Respiratory Exam: Decreased Breath Sounds, Wheezes - Cardiovascular Exam Cardiovascular Exam: Tachycardia (130s) - GI/Abdominal Exam GI & Abdominal Exam: Normal Bowel Sounds, Soft. absent: Tenderness - Extremities Exam Extremities exam: Positive for: normal capillary refill. Negative for: calf tenderness - Back Exam Back exam: absent: CVA tenderness (L), CVA tenderness (R) - Neurological Exam Neurological exam: Alert, CN II-XII Intact, Oriented x3 - Psychiatric Exam Psychiatric exam: Normal Affect, Normal Mood - Skin Skin Exam: Dry, Warm Results - Vital Signs Recent Vital Signs: Last Vital Signs Temp 99.4 F 12/23/18 17:38 Pulse 138 H 12/23/18 17:38 Resp 19 12/23/18 17:38 BP 102/72 12/23/18 17:38 Pulse Ox 93 L 12/23/18 17:38 - Labs Result Diagrams: 12/23/18 12:50 12/23/18 12:50 Labs: Laboratory Results - last 24 hr 12/23/18 12/23/18 12/23/18 12:50 12:50 12:50 WBC 3.6 L RBC 3.82 Hgb 11.0 L Hct 33.7 L MCV 88.2 MCH 28.7 MCHC 32.5 L RDW 18.9 H Plt Count 322 MPV 7.3 Neut % (Auto) 86.8 H Lymph % (Auto) 3.4 L Maverick % (Auto) 8.8 Eos % (Auto) 0.5 Baso % (Auto) 0.5 Neut # (Auto) 3.1 Lymph # (Auto) 0.1 L Maverick # (Auto) 0.3 Eos # (Auto) 0.0 Baso # (Auto) 0.0 Neutrophils % (Manual) 86 H Band Neutrophils % 1 Lymphocytes % (Manual) 3 L Monocytes % (Manual) 10 Platelet Estimate Normal Large Platelets Present Giant Platelets Present Anisocytosis (manual) Slight Ovalocytes Slight Schistocytes Slight PT 13.9 H INR 1.2 APTT 36.8 Sodium 136 Potassium 4.4 Chloride 98 Carbon Dioxide 27 Anion Gap 15 BUN 5 L Creatinine 0.3 L Est GFR ( Amer) > 60 Est GFR (Non-Af Amer) > 60 Random Glucose 96 Calcium 9.1 Total Bilirubin 0.3 AST 64 H ALT 17 Alkaline Phosphatase 149 H D Total Protein 7.7 Albumin 3.7 Globulin 4.0 H Albumin/Globulin Ratio 0.9 L Influenza Typ A,B (EIA) 12/23/18 17:00 WBC RBC Hgb Hct MCV MCH MCHC RDW Plt Count MPV Neut % (Auto) Lymph % (Auto) Maverick % (Auto) Eos % (Auto) Baso % (Auto) Neut # (Auto) Lymph # (Auto) Maverick # (Auto) Eos # (Auto) Baso # (Auto) Neutrophils % (Manual) Band Neutrophils % Lymphocytes % (Manual) Monocytes % (Manual) Platelet Estimate Large Platelets Giant Platelets Anisocytosis (manual) Ovalocytes Schistocytes PT INR APTT Sodium Potassium Chloride Carbon Dioxide Anion Gap BUN Creatinine Est GFR ( Amer) Est GFR (Non-Af Amer) Random Glucose Calcium Total Bilirubin AST ALT Alkaline Phosphatase Total Protein Albumin Globulin Albumin/Globulin Ratio Influenza Typ A,B (EIA) Negative for flu a/b Assessment & Plan - Assessment and Plan (Free Text) Assessment: 43F with PMH Stage IV Breast CA with mets to lungs who presents for SOB Plan: -CT scan shows consolidations, pleural effusions, mets, 5% anterior pneumothorax (see full report) -No surgical intervention indicated at this time -May Monitor Pneumothorax with serial CXRs (PA/Lat) -Recommend Palliative care consult -Medical management as per primary -Discussed with Dr. Jennifer Srinivasan PGY2 - Date & Time Date: 12/23/18 Time: 18:23
--- NOTE | 2018-12-23 22:19 | CP.PCM.CON ---
History of Present Illness - History of Present Illness History of Present Illness: 43 year old female with a history of stage IV breast cancer diagnosed in 2016 currently on radiation, recently found to have a malignant pleural effusion s/p thoracentesis last week, readmitted with recurrent pleural effusion. The pat anamaria notes to being diagnosed with breast cancer in 2016 at [place] with recommendation for neoadjuvant chemotherapy. She deferred therapy. She notes to recently starting radiation and breast mass shrinking. She notes to progressive shortness of breath which prompted her to come to the hospital. A CT chest revealed a right sided breast tumor eroding through the chest wall and involving the lung. She has evidence of bilateral lung metastasis and left pleural effusion. She also has a T11 lesion, likely metastasis. Past medical history: Breast cancer Past surgical history: Denies Family history: Denies hematologic and oncologic problems Social history: Denies tobacco, alcohol, and illicit drug use. Allergies: NKA Review of system: All remaining review of systems including HEENT, cardiovascular, respiratory, gastrointestinal, genitourinary, musculoskeletal, dermatologic, neurologic, and psychiatric are negative unless mentioned in the HPI. Past Patient History - Infectious Disease Hx of Infectious Diseases: None - Past Medical History & Family History Past Medical History?: Yes - Past Social History Alcohol: None Drugs: Denies - CARDIAC Hx Cardiac Disorders: No - PULMONARY Hx Respiratory Disorders: No - NEUROLOGICAL Hx Neurological Disorder: No - HEENT Hx HEENT Problems: No - RENAL Hx Chronic Kidney Disease: No - ENDOCRINE/METABOLIC Hx Endocrine Disorders: No - HEMATOLOGICAL/ONCOLOGICAL Other/Comment: breast cancer - INTEGUMENTARY Hx Dermatological Problems: No - MUSCULOSKELETAL/RHEUMATOLOGICAL Hx Falls: No - GASTROINTESTINAL Hx Gastrointestinal Disorders: No - GENITOURINARY/GYNECOLOGICAL Other/Comment: breast CA on radiation. - PSYCHIATRIC Hx Psychophysiologic Disorder: No Hx Substance Use: No - ANESTHESIA Hx Anesthesia: Yes Hx Anesthesia Reactions: No Hx Malignant Hyperthermia: No Meds Allergies/Adverse Reactions: Allergies Allergy/AdvReac Type Severity Reaction Status Date / Time No Known Allergies Allergy Verified 10/31/16 10:03 - Medications Medications: Current Medications Acetaminophen (Tylenol 325mg Tab) 650 mg PO Q6 PRN PRN Reason: Pain, Mild (1-3) Acetaminophen (Tylenol 325mg Tab) 650 mg PO Q6 PRN PRN Reason: Fever >100.4 F Enoxaparin Sodium (Lovenox) 40 mg SC DAILY ESTEBAN; Protocol Sodium Chloride (Sodium Chloride 0.9%) 1,000 mls @ 100 mls/hr IV .Q10H ESTEBAN Stop: 12/24/18 14:27 Last Admin: 12/23/18 14:39 Dose: 100 mls/hr Sodium Chloride (Sodium Chloride 0.9%) 1,000 mls @ 100 mls/hr IV .Q10H ESTEBAN Last Admin: 12/23/18 18:18 Dose: Not Given Piperacillin Sod/Tazobactam (Sod 3.375 gm/ Sodium Chloride) 100 mls @ 100 mls/hr IVPB Q6 ESTEBAN; Protocol Vancomycin HCl 1 gm/ Sodium (Chloride) 250 mls @ 166.667 mls/hr IVPB Q12 ESTEBAN; Protocol Last Admin: 12/23/18 21:06 Dose: Not Given Levofloxacin/Dextrose (Levaquin 750mg) 750 mg in 150 mls @ 100 mls/hr IVPB DAILY ESTEBAN; Protocol Ketorolac Tromethamine (Toradol) 15 mg IVP Q6 PRN PRN Reason: Pain, moderate (4-7) Levalbuterol HCl (Xopenex) 0.63 mg INH RQ8 ESTEBAN Morphine Sulfate (Morphine) 2 mg IVP Q6 PRN PRN Reason: Pain, severe (8-10) Ondansetron HCl (Zofran Inj) 4 mg IVP Q6 PRN PRN Reason: Nausea/Vomiting Physical Exam - Head Exam Head Exam: ATRAUMATIC - Eye Exam Eye Exam: Normal appearance - ENT Exam ENT Exam: Mucous Membranes Dry - Respiratory Exam Respiratory Exam: Decreased Breath Sounds - Cardiovascular Exam Cardiovascular Exam: +S1, +S2 - GI/Abdominal Exam GI & Abdominal Exam: Normal Bowel Sounds - Extremities Exam Extremities exam: Positive for: normal inspection - Neurological Exam Neurological exam: Oriented x3 - Psychiatric Exam Psychiatric exam: Normal Affect, Normal Mood - Skin Skin Exam: Warm Results - Vital Signs Recent Vital Signs: Last Vital Signs Temp 98.8 F 12/23/18 21:52 Pulse 130 H 12/23/18 21:52 Resp 20 12/23/18 21:52 BP 124/76 12/23/18 21:52 Pulse Ox 93 L 12/23/18 21:52 - Labs Result Diagrams: 12/23/18 12:50 12/23/18 12:50 Labs: Laboratory Results - last 24 hr 12/23/18 12/23/18 12/23/18 12:50 12:50 12:50 WBC 3.6 L RBC 3.82 Hgb 11.0 L Hct 33.7 L MCV 88.2 MCH 28.7 MCHC 32.5 L RDW 18.9 H Plt Count 322 MPV 7.3 Neut % (Auto) 86.8 H Lymph % (Auto) 3.4 L [place] % (Auto) 8.8 Eos % (Auto) 0.5 Baso % (Auto) 0.5 Neut # (Auto) 3.1 Lymph # (Auto) 0.1 L [place] # (Auto) 0.3 Eos # (Auto) 0.0 Baso # (Auto) 0.0 Neutrophils % (Manual) 86 H Band Neutrophils % 1 Lymphocytes % (Manual) 3 L Monocytes % (Manual) 10 Platelet Estimate Normal Large Platelets Present Giant Platelets Present Anisocytosis (manual) Slight Ovalocytes Slight Schistocytes Slight PT 13.9 H INR 1.2 APTT 36.8 Sodium 136 Potassium 4.4 Chloride 98 Carbon Dioxide 27 Anion Gap 15 BUN 5 L Creatinine 0.3 L Est GFR ( Amer) > 60 Est GFR (Non-Af Amer) > 60 Random Glucose 96 Calcium 9.1 Total Bilirubin 0.3 AST 64 H ALT 17 Alkaline Phosphatase 149 H D Total Protein 7.7 Albumin 3.7 Globulin 4.0 H Albumin/Globulin Ratio 0.9 L Procalcitonin Urine Color Urine Clarity Urine pH Ur Specific [place] Urine Protein Urine Glucose (UA) Urine Ketones Urine Blood Urine Nitrate Urine Bilirubin Urine Urobilinogen Ur Leukocyte Esterase Urine RBC (Auto) Urine Microscopic WBC Ur Squamous Epith Cells Amorphous Sediment Urine Bacteria Influenza Typ A,B (EIA) 12/23/18 12/23/18 12/23/18 17:00 17:30 17:50 WBC RBC Hgb Hct MCV MCH MCHC RDW Plt Count MPV Neut % (Auto) Lymph % (Auto) [place] % (Auto) Eos % (Auto) Baso % (Auto) Neut # (Auto) Lymph # (Auto) [place] # (Auto) Eos # (Auto) Baso # (Auto) Neutrophils % (Manual) Band Neutrophils % Lymphocytes % (Manual) Monocytes % (Manual) Platelet Estimate Large Platelets Giant Platelets Anisocytosis (manual) Ovalocytes Schistocytes PT INR APTT Sodium Potassium Chloride Carbon Dioxide Anion Gap BUN Creatinine Est GFR ( Amer) Est GFR (Non-Af Amer) Random Glucose Calcium Total Bilirubin AST ALT Alkaline Phosphatase Total Protein Albumin Globulin Albumin/Globulin Ratio Procalcitonin < 0.05 L Urine Color Yellow Urine Clarity Cloudy Urine pH 7.0 Ur Specific [place] 1.032 H Urine Protein Negative Urine Glucose (UA) Neg Urine Ketones 80 Urine Blood Moderate Urine Nitrate Negative Urine Bilirubin Negative Urine Urobilinogen 0.2-1.0 Ur Leukocyte Esterase Neg Urine RBC (Auto) 11 H Urine Microscopic WBC 4 Ur Squamous Epith Cells 6 H Amorphous Sediment Rare H Urine Bacteria Rare Influenza Typ A,B (EIA) Negative for flu a/b Assessment & Plan (1) Breast cancer Assessment and Plan: stage IV ER/NV/HER2 status pending on pleural fluid from last admission - will start endocrine therapy if ER/NV positive chest wall, lung, bone, malignant pleural effusion involvement pulmonary evaluation thoracentesis evaluation if felt to have more pleural fluid accumulation home oxygen Status: Acute (2) Anemia Assessment and Plan: likely chronic disease Status: Acute (3) Leukopenia Assessment and Plan: mild, benign Thank you for this interesting consult. Status: Acute
[2018-12-23] MEDS: Piperacillin/Tazobact 3.375 GM in Sodium Chloride 0.9% 100 ML IVPB SCH (23:08)
[2018-12-24] MEDS: Levalbuterol 0.63 MG/3 ML Inhal Soln UD INH SCH ×2 (00:19→07:36)
[2018-12-24] MEDS: Sodium Chloride 0.9% 1,000 ML IV SCH ×5 (01:26→22:06)
[2018-12-24] MEDS: Piperacillin/Tazobact 3.375 GM in Sodium Chloride 0.9% 100 ML IVPB SCH ×4 (03:58→22:09)
[2018-12-24 05:48] LABS: BASO % 0.3 % (0.0-2.0); EOS % 0.7 % (0.0-4.0); HEMOGLOBIN 10.2 g/dL (12.0-16.0); LYMPH # 0.2 K/uL (1.0-4.3); LYMPH % 4.5 % (20.0-40.0); MEAN CELL VOLUME 88.3 fl (81.0-99.0); MEAN CORPUSCULAR HEMOGLOBIN 29.2 pg (27.0-31.0); MEAN CORPUSCULAR HGB CONC 33.1 g/dL (33.0-37.0); MEAN PLATELET VOLUME 7.6 fl (7.2-11.7); MONO # 0.4 K/uL (0.0-0.8); MONO % 10.3 % (0.0-10.0); NEUT % 84.2 % (50.0-75.0); NRBC % 0.1 % (0.0-0.0); RBC 3.5 Mil/uL (3.80-5.20); RED CELL DISTRIBUTION WIDTH 18.7 % (11.5-14.5); WHITE BLOOD COUNT 3.5 K/uL (4.8-10.8)
--- NOTE | 2018-12-24 06:12 | CP.PCM.HP ---
<Monique Barrett - Last Filed: 12/24/18 07:01> History of Present Illness - History of Present Illness History of Present Illness: This is 43 y/o F with PMH of stage IV breast cancer with mets diagnosed in 2016 currently on radiation, multiple pleural effusion s/p thoracentesis and chronic SOB on home oxygen admitted to [facility] for evaluation and treatment of possible pneumonia/pneumothorax. Patient presented to ER for for 1 week hx of worsening SOB, cough, congestion, generalized body pain and weakness. Pt was recently hospitalized due to pleural effusion. Left thoracentesis performed on 12/12/18, 1.4 L collected. Pt receiving palliative radiation and has appt with oncologist, Dr Ornelas, in 2 weeks. Denies any sick contact or recent travel. PMD: None Oncologist: Dr Jesse Marcos; however, seems to be transitioned to Dr Ornelas PMH/PSH: Stage IV breast cancer with mets diagnosed in 2016 currently on radiation, multiple pleural effusion s/p thoracentesis and chronic SOB on home oxygen Allg: NKA Meds: As per EMR FHx:Denies any cancers SHx: No tobacco. No alcohol. No rec drugs. Present on Admission - Present on Admission Any Indicators Present on Admission: No Review of Systems - Review of Systems Systems not reviewed;Unavailable: Respiratory Distress - Constitutional Constitutional: Weight Loss, Weakness. absent: Fever, Lethargy - EENT Eyes: absent: Blurred Vision Ears: absent: Dizziness Nose/Mouth/Throat: Nasal Congestion - Cardiovascular Cardiovascular: absent: Chest Pain - Respiratory Respiratory: Cough, Dyspnea. absent: Hemoptysis, Dyspnea on Exertion - Gastrointestinal Gastrointestinal: absent: Abdominal Pain - Genitourinary Genitourinary: absent: Change in Urinary Stream, Dysuria - Musculoskeletal Musculoskeletal: Back Pain, Neck Pain. absent: Numbness, Tingling - Integumentary Integumentary: absent: Bleeding Lesions - Neurological Neurological: absent: Dizziness, Sensory Deficit, Syncope, Tingling, Tremor, Vertigo, Other Visual Disturbances - Psychiatric Psychiatric: absent: Anhedonia, Anxiety - Endocrine Endocrine: absent: Change in Body Appearance - Hematologic/Lymphatic Hematologic: absent: Easy Bleeding Past Patient History - Infectious Disease Hx of Infectious Diseases: None - Past Medical History & Family History Past Medical History?: Yes - Past Social History Smoking Status: Never Smoked - CARDIAC Hx Cardiac Disorders: No - PULMONARY Hx Respiratory Disorders: No - NEUROLOGICAL Hx Neurological Disorder: No - HEENT Hx HEENT Problems: No - RENAL Hx Chronic Kidney Disease: No - ENDOCRINE/METABOLIC Hx Endocrine Disorders: No - HEMATOLOGICAL/ONCOLOGICAL Other/Comment: breast cancer - INTEGUMENTARY Hx Dermatological Problems: No - MUSCULOSKELETAL/RHEUMATOLOGICAL Hx Falls: No - GASTROINTESTINAL Hx Gastrointestinal Disorders: No - GENITOURINARY/GYNECOLOGICAL Other/Comment: breast CA on radiation. - PSYCHIATRIC Hx Psychophysiologic Disorder: No Hx Substance Use: No - ANESTHESIA Hx Anesthesia: Yes Hx Anesthesia Reactions: No Hx Malignant Hyperthermia: No Has any member of the family had a problem w/ anesthesia?: No Meds Allergies/Adverse Reactions: Allergies Allergy/AdvReac Type Severity Reaction Status Date / Time No Known Allergies Allergy Verified 10/31/16 10:03 Physical Exam - Constitutional Appears: No Acute Distress, Cachectic, Chronically Ill - Head Exam Head Exam: NORMAL INSPECTION - Eye Exam Eye Exam: Normal appearance - ENT Exam ENT Exam: Mucous Membranes Moist - Neck Exam Neck exam: Positive for: Normal Inspection - Respiratory Exam Respiratory Exam: Decreased Breath Sounds, Rales, Rhonchi, Wheezes, NORMAL BREATHING PATTERN. absent: Accessory Muscle Use, Chest Wall Tenderness, Stridor - Cardiovascular Exam Cardiovascular Exam: REGULAR RHYTHM, +S1, +S2 - GI/Abdominal Exam GI & Abdominal Exam: Normal Bowel Sounds, Soft. absent: Tenderness - Extremities Exam Extremities exam: Negative for: pedal edema, tenderness - Back Exam Back exam: absent: CVA tenderness (L), CVA tenderness (R) - Neurological Exam Neurological exam: Alert, CN II-XII Intact, Oriented x3 - Psychiatric Exam Psychiatric exam: Normal Mood - Skin Skin Exam: Dry, Intact, Normal Color, Warm Results - Vital Signs Recent Vital Signs: Last Vital Signs Temp 97.9 F 12/24/18 05:41 Pulse 122 H 12/24/18 05:41 Resp 16 12/24/18 05:41 BP 118/75 12/24/18 05:41 Pulse Ox 95 12/24/18 05:41 - Labs Result Diagrams: 12/24/18 04:50 12/24/18 04:50 Labs: Laboratory Results - last 24 hr 12/23/18 12/23/18 12/23/18 12:50 12:50 12:50 WBC 3.6 L RBC 3.82 Hgb 11.0 L Hct 33.7 L MCV 88.2 MCH 28.7 MCHC 32.5 L RDW 18.9 H Plt Count 322 MPV 7.3 Neut % (Auto) 86.8 H Lymph % (Auto) 3.4 L [place] % (Auto) 8.8 Eos % (Auto) 0.5 Baso % (Auto) 0.5 Neut # (Auto) 3.1 Lymph # (Auto) 0.1 L [place] # (Auto) 0.3 Eos # (Auto) 0.0 Baso # (Auto) 0.0 Neutrophils % (Manual) 86 H Band Neutrophils % 1 Lymphocytes % (Manual) 3 L Monocytes % (Manual) 10 Platelet Estimate Normal Large Platelets Present Giant Platelets Present Anisocytosis (manual) Slight Ovalocytes Slight Schistocytes Slight PT 13.9 H INR 1.2 APTT 36.8 Sodium 136 Potassium 4.4 Chloride 98 Carbon Dioxide 27 Anion Gap 15 BUN 5 L Creatinine 0.3 L Est GFR ( Amer) > 60 Est GFR (Non-Af Amer) > 60 Random Glucose 96 Calcium 9.1 Total Bilirubin 0.3 AST 64 H ALT 17 Alkaline Phosphatase 149 H D Total Protein 7.7 Albumin 3.7 Globulin 4.0 H Albumin/Globulin Ratio 0.9 L Procalcitonin Urine Color Urine Clarity Urine pH Ur Specific [place] Urine Protein Urine Glucose (UA) Urine Ketones Urine Blood Urine Nitrate Urine Bilirubin Urine Urobilinogen Ur Leukocyte Esterase Urine RBC (Auto) Urine Microscopic WBC Ur Squamous Epith Cells Amorphous Sediment Urine Bacteria Influenza Typ A,B (EIA) 12/23/18 12/23/18 12/23/18 17:00 17:30 17:50 WBC RBC Hgb Hct MCV MCH MCHC RDW Plt Count MPV Neut % (Auto) Lymph % (Auto) [place] % (Auto) Eos % (Auto) Baso % (Auto) Neut # (Auto) Lymph # (Auto) [place] # (Auto) Eos # (Auto) Baso # (Auto) Neutrophils % (Manual) Band Neutrophils % Lymphocytes % (Manual) Monocytes % (Manual) Platelet Estimate Large Platelets Giant Platelets Anisocytosis (manual) Ovalocytes Schistocytes PT INR APTT Sodium Potassium Chloride Carbon Dioxide Anion Gap BUN Creatinine Est GFR ( Amer) Est GFR (Non-Af Amer) Random Glucose Calcium Total Bilirubin AST ALT Alkaline Phosphatase Total Protein Albumin Globulin Albumin/Globulin Ratio Procalcitonin < 0.05 L Urine Color Yellow Urine Clarity Cloudy Urine pH 7.0 Ur Specific [place] 1.032 H Urine Protein Negative Urine Glucose (UA) Neg Urine Ketones 80 Urine Blood Moderate Urine Nitrate Negative Urine Bilirubin Negative Urine Urobilinogen 0.2-1.0 Ur Leukocyte Esterase Neg Urine RBC (Auto) 11 H Urine Microscopic WBC 4 Ur Squamous Epith Cells 6 H Amorphous Sediment Rare H Urine Bacteria Rare Influenza Typ A,B (EIA) Negative for flu a/b Assessment & Plan - Assessment and Plan (Free Text) Assessment: A/P: 43 y/o F with PMH of stage IV breast cancer with mets diagnosed in 2016 currently on radiation, multiple pleural effusion s/p thoracentesis and chronic SOB on home oxygen admitted to [facility] for evaluation and treatment of possible pneumonia/pneumothorax. Worsening Shortness of breath, likely due to Trace R pneumothorax/Plural effusion/infiltrates/+mets & consolidation - CXR and CT chest reviewed: Trace R pneumothorax/Plural effusion/infiltrates/+mets & consolidation (see official reports) - Consult Surgery, f/u recommendations - Consult Pulmonary, f/u recs - Consult HemOnc, f/u recs - ER/[place]/HER2 status pending on pleural fluid from last admission - Will start patient on empiric IV Abx for pneumonia for now (low procalcitonin) - C/w Xopenox and Duoneb as ordered, F/u TB QF test - C/w IVF and NC O2 - C/w daily CXR Breast Ca. Stage IV with mets to bones and Lungs - Consult HemOnc, Dr. Ornelas, f/u recs - Continue management as per HemOnc - Consult Palliative care Chronic pain - C/w pain management as ordered DVT PPX - Lovenox SC daily Case discussed with Dr. Mckeon <Miller Mckeon - Last Filed: 12/31/18 08:49> Results - Vital Signs Recent Vital Signs: Last Vital Signs Temp 99.9 F H 12/30/18 16:00 Pulse 86 12/30/18 16:00 Resp 12 12/30/18 16:00 BP 47/23 L 12/30/18 16:00 Pulse Ox 77 L 12/30/18 16:00 - Labs Result Diagrams: 12/30/18 04:53 12/30/18 04:53 Assessment & Plan - Assessment and Plan (Free Text) Assessment: Patient was personally seen and examined by me in rounds with residents. Available labs and diagnostic data reviewed. Case, Patient's condition and management plan discussed with residents in rounds. Agree with resident's progress note. Plan: As ordered.
[2018-12-24 06:22] LABS: ALB/GLOB RATIO 0.9 (1.0-2.1); ALBUMIN 3.4 g/dL (3.5-5.0); ALT/SGPT 15 U/L (9-52); AST/SGOT 52 U/L (14-36); BLOOD UREA NITROGEN 3 mg/dl (7-17); CALCIUM 9.1 mg/dL (8.4-10.2); GFR NON-AFRICAN AMERICAN > 60
[2018-12-24] MEDS ORDERED: levoFLOXacin 750 mg in D5W 750 MG/150 ML BAG IVPB SCH (09:00)
[2018-12-24] MEDS: Enoxaparin 40 mg Syringe SC SCH (09:43)
--- NOTE | 2018-12-24 15:01 | CP.PCM.CON ---
History of Present Illness - History of Present Illness History of Present Illness: Pulmonary consult for a 43 y/o F with Hx R breast Ca on 2016 (currently on Palliative radiation), associated with large Breast mass with deep extension to the R chest wall into the RUL with multiple Pulmonary metastasis bilaterally, a lso multiple metastatic sites with Hx of recurrent Pleural effusion, s/p recent L thoracentesis for large malignant Pleural effusion in her last admission to [facility] on 12/10/18. Pt was discharged home in stable condition with O2 on 12/17/18. Pt returned to hospital after 6 days of being discharged c/o of severe SOB associated to non productive cough, wheezing, chest congestion with no relief. Worsening symptoms: Pain on inspiration, BANGURA, moderate to severe upper back pain of 8:10, neck pain, generalized weakness. Aggravated factor: Movements/exercise. Pt denied: Fever, chills, n/v/d abdominal pain, urinary symptoms, CP, sick contact. CT Chest: Widespread metastases with new consolidation/infiltrate RADHA and superior segment LLL. Pneumothorax R chest anteriorly less than 5 % , no left Pneumothorax. Stable R pleural effusion, diminished L pleural effusion. Review of Systems - Constitutional Constitutional: Weakness - EENT Eyes: Other (negative) Ears: Other (negative) Nose/Mouth/Throat: Other (negative) - Cardiovascular Cardiovascular: Rapid Heart Rate - Respiratory Respiratory: Cough, Dyspnea, Dyspnea on Exertion, Wheezing, Chest Congestion - Gastrointestinal Gastrointestinal: Other (negative) - Genitourinary Genitourinary: Other (negative) - Musculoskeletal Musculoskeletal: Arthralgias, Back Pain, Muscle Weakness, Neck Pain - Integumentary Integumentary: Other (negative) - Neurological Neurological: Other (negative) - Psychiatric Psychiatric: Other (negative) - Endocrine Endocrine: Other (negative) - Hematologic/Lymphatic Hematologic: Other (anemia) Past Patient History - Infectious Disease Hx of Infectious Diseases: None - Past Medical History & Family History Past Medical History?: Yes Pertinent Family History: Unknown - Past Social History Smoking Status: Never Smoked Alcohol: None Drugs: Denies Home Situation {Lives}: With Family - CARDIAC Hx Cardiac Disorders: No - PULMONARY Hx Respiratory Disorders: No - NEUROLOGICAL Hx Neurological Disorder: No - HEENT Hx HEENT Problems: No - RENAL Hx Chronic Kidney Disease: No - ENDOCRINE/METABOLIC Hx Endocrine Disorders: No - HEMATOLOGICAL/ONCOLOGICAL Hx Blood Disorders: Yes Hx Cancer: Yes (R breast) Hx Metastesis: Yes (multiple) Other/Comment: breast cancer - INTEGUMENTARY Hx Dermatological Problems: No - MUSCULOSKELETAL/RHEUMATOLOGICAL Hx Musculoskeletal Disorders: Yes Hx Falls: No Other/Comment: Generalized pain 2nd to bone metastases - GASTROINTESTINAL Hx Gastrointestinal Disorders: No - GENITOURINARY/GYNECOLOGICAL Other/Comment: breast CA on radiation. - PSYCHIATRIC Hx Psychophysiologic Disorder: No Hx Substance Use: No - ANESTHESIA Hx Anesthesia: Yes Hx Anesthesia Reactions: No Hx Malignant Hyperthermia: No Has any member of the family had a problem w/ anesthesia?: No Meds Allergies/Adverse Reactions: Allergies Allergy/AdvReac Type Severity Reaction Status Date / Time No Known Allergies Allergy Verified 10/31/16 10:03 - Medications Medications: Current Medications Acetaminophen (Tylenol 325mg Tab) 650 mg PO Q6 PRN PRN Reason: Pain, Mild (1-3) Acetaminophen (Tylenol 325mg Tab) 650 mg PO Q6 PRN PRN Reason: Fever >100.4 F Enoxaparin Sodium (Lovenox) 40 mg SC DAILY [facility]; Protocol Last Admin: 12/24/18 09:43 Dose: 40 mg Sodium Chloride (Sodium Chloride 0.9%) 1,000 mls @ 100 mls/hr IV .Q10H EST[facility] Last Admin: 12/24/18 13:40 Dose: 100 mls/hr Piperacillin Sod/Tazobactam (Sod 3.375 gm/ Sodium Chloride) 100 mls @ 100 mls/hr IVPB Q6 [facility]; Protocol Last Admin: 12/24/18 09:44 Dose: 100 mls/hr Vancomycin HCl 1 gm/ Sodium (Chloride) 250 mls @ 166.667 mls/hr IVPB Q12 [facility]; Protocol Last Admin: 12/24/18 08:33 Dose: 166.667 mls/hr Ketorolac Tromethamine (Toradol) 15 mg IVP Q6 PRN PRN Reason: Pain, moderate (4-7) Levalbuterol HCl (Xopenex) 0.63 mg INH RQ8 ESTEBAN Last Admin: 12/24/18 07:36 Dose: 0.63 mg Morphine Sulfate (Morphine) 2 mg IVP Q6 PRN PRN Reason: Pain, severe (8-10) Last Admin: 12/24/18 10:26 Dose: 2 mg Ondansetron HCl (Zofran Inj) 4 mg IVP Q6 PRN PRN Reason: Nausea/Vomiting Sodium Hypochlorite (Dakins Solution 0.125%) 1 appl TOP DAILY [facility] Physical Exam - Constitutional Appears: No Acute Distress, Cachectic, Chronically Ill - Head Exam Head Exam: NORMAL INSPECTION - Eye Exam Eye Exam: PERRL - ENT Exam ENT Exam: Normal Exam - Neck Exam Neck exam: Positive for: Normal Inspection - Respiratory Exam Respiratory Exam: Decreased Breath Sounds, Rhonchi - Cardiovascular Exam Cardiovascular Exam: Tachycardia - GI/Abdominal Exam GI & Abdominal Exam: Normal Bowel Sounds, Soft - Extremities Exam Extremities exam: Positive for: normal inspection - Back Exam Back exam: NORMAL INSPECTION - Neurological Exam Neurological exam: Alert, Oriented x3 Additional comments: No focal motor/sensory deficit. - Psychiatric Exam Psychiatric exam: Normal Mood - Skin Skin Exam: Warm Results - Vital Signs Recent Vital Signs: Last Vital Signs Temp 98.4 F 12/24/18 12:15 Pulse 123 H 12/24/18 12:15 Resp 18 12/24/18 12:15 BP 111/74 12/24/18 12:15 Pulse Ox 95 12/24/18 12:15 reviewed [email or web address] - Labs Result Diagrams: 12/24/18 04:50 12/24/18 04:50 Labs: Laboratory Results - last 24 hr 12/23/18 12/23/18 12/23/18 17:00 17:30 17:50 WBC RBC Hgb Hct MCV MCH MCHC RDW Plt Count MPV Neut % (Auto) Lymph % (Auto) Gilliam % (Auto) Eos % (Auto) Baso % (Auto) Neut # (Auto) Lymph # (Auto) Gilliam # (Auto) Eos # (Auto) Baso # (Auto) Sodium Potassium Chloride Carbon Dioxide Anion Gap BUN Creatinine Est GFR ( Amer) Est GFR (Non-Af Amer) Random Glucose Calcium Total Bilirubin AST ALT Alkaline Phosphatase Total Protein Albumin Globulin Albumin/Globulin Ratio Procalcitonin < 0.05 L Urine Color Yellow Urine Clarity Cloudy Urine pH 7.0 Ur Specific [place] 1.032 H Urine Protein Negative Urine Glucose (UA) Neg Urine Ketones 80 Urine Blood Moderate Urine Nitrate Negative Urine Bilirubin Negative Urine Urobilinogen 0.2-1.0 Ur Leukocyte Esterase Neg Urine RBC (Auto) 11 H Urine Microscopic WBC 4 Ur Squamous Epith Cells 6 H Amorphous Sediment Rare H Urine Bacteria Rare Influenza Typ A,B (EIA) Negative for flu a/b Ur L.pneumophila Ag S. pneumoniae Antigen 12/24/18 12/24/18 12/24/18 03:00 03:00 04:50 WBC 3.5 L RBC 3.50 L Hgb 10.2 L Hct 30.9 L MCV 88.3 MCH 29.2 MCHC 33.1 RDW 18.7 H Plt Count 326 MPV 7.6 Neut % (Auto) 84.2 H Lymph % (Auto) 4.5 L Gilliam % (Auto) 10.3 H Eos % (Auto) 0.7 Baso % (Auto) 0.3 Neut # (Auto) 3.0 Lymph # (Auto) 0.2 L Gilliam # (Auto) 0.4 Eos # (Auto) 0.0 Baso # (Auto) 0.0 Sodium Potassium Chloride Carbon Dioxide Anion Gap BUN Creatinine Est GFR ( Amer) Est GFR (Non-Af Amer) Random Glucose Calcium Total Bilirubin AST ALT Alkaline Phosphatase Total Protein Albumin Globulin Albumin/Globulin Ratio Procalcitonin Urine Color Urine Clarity Urine pH Ur Specific [place] Urine Protein Urine Glucose (UA) Urine Ketones Urine Blood Urine Nitrate Urine Bilirubin Urine Urobilinogen Ur Leukocyte Esterase Urine RBC (Auto) Urine Microscopic WBC Ur Squamous Epith Cells Amorphous Sediment Urine Bacteria Influenza Typ A,B (EIA) Ur L.pneumophila Ag Negative S. pneumoniae Antigen Negative 12/24/18 12/24/18 04:50 04:50 WBC RBC Hgb Hct MCV MCH MCHC RDW Plt Count MPV Neut % (Auto) Lymph % (Auto) Gilliam % (Auto) Eos % (Auto) Baso % (Auto) Neut # (Auto) Lymph # (Auto) Gilliam # (Auto) Eos # (Auto) Baso # (Auto) Sodium 136 Potassium 4.2 Chloride 100 Carbon Dioxide 25 Anion Gap 15 BUN 3 L Creatinine 0.4 L Est GFR ( Amer) > 60 Est GFR (Non-Af Amer) > 60 Random Glucose 86 Calcium 9.1 Total Bilirubin 0.6 AST 52 H ALT 15 Alkaline Phosphatase 132 H Total Protein 7.2 Albumin 3.4 L Globulin 3.8 Albumin/Globulin Ratio 0.9 L Procalcitonin 0.07 L Urine Color Urine Clarity Urine pH Ur Specific [place] Urine Protein Urine Glucose (UA) Urine Ketones Urine Blood Urine Nitrate Urine Bilirubin Urine Urobilinogen Ur Leukocyte Esterase Urine RBC (Auto) Urine Microscopic WBC Ur Squamous Epith Cells Amorphous Sediment Urine Bacteria Influenza Typ A,B (EIA) Ur L.pneumophila Ag S. pneumoniae Antigen reviewed [email or web address] - Imaging and Cardiology CT scan - chest Status: Report reviewed by me (Carla) Chest x-ray Status: Report reviewed by me (Carla) Assessment & Plan (1) Infiltrate of lung present on computed tomography Status: Acute Comment: PNA / Mets (2) Metastasis to lung Status: Acute Priority: High (3) Status post thoracentesis Status: Chronic Priority: Medium Comment: Left (4) Bilateral pleural effusion Status: Acute Comment: Malignant (5) Breast carcinoma metastatic to multiple sites Status: Acute Comment: R Breast Ca with lung, bones metastasis (6) Pneumothorax on right Status: Acute Comment: < 5% - Assessment and Plan (Free Text) Plan: F/U CXR, Blood C-S, Continue O2 NC, Zosyn, Vanco, Xopenex and rest of Tx., prognosis poor - Date & Time Date: 12/24/18 Time: 14:30
--- NOTE | 2018-12-24 15:29 | RAD ---
Date of service: 12/24/2018 HISTORY: Pneumothorax COMPARISON: No prior. TECHNIQUE: Chest PA and lateral views FINDINGS: LUNGS: Widespread pulmonary metastasis are reiterated with left upper lobe infiltrate again noted based on prior CT from 12/23/2018. Previous pneumothorax is not visible in the current radiograph series but is unlikely to be worsened to a significant level at this time. PLEURA: No significant pleural effusion identified. No pneumothorax apparent. CARDIOVASCULAR: No aortic atherosclerotic calcification present. Cardiac size obscured by masses as well as pulmonary vasculature. OSSEOUS STRUCTURES: No significant abnormalities. VISUALIZED UPPER ABDOMEN: Normal. OTHER FINDINGS: Grossly ulcerated right breast identified. IMPRESSION: Left upper lobe infiltrate reiterated. Widespread pulmonary metastases are identified with gross ulceration at right breast region incidentally noted.
[2018-12-24] MEDS ORDERED: Levalbuterol 0.63 MG/3 ML Inhal Soln UD INH PRN (15:54)
[2018-12-24] MEDS: Lactobacillus Acidophilus 500 MU Cap PO SCH (16:19)
--- NOTE | 2018-12-24 22:22 | CP.PCM.PN ---
Subjective - Date & Time of Evaluation Date of Evaluation: 12/24/18 Time of Evaluation: 18:00 - Subjective Subjective: Feels better with oxygen Objective - Vital Signs/Intake and Output Vital Signs (last 24 hours): Temp Pulse Resp BP Pulse Ox 98.2 F 130 H 18 132/78 95 12/24/18 17:00 12/24/18 17:00 12/24/18 17:00 12/24/18 17:00 12/24/18 17:00 - Medications Medications: Current Medications Acetaminophen (Tylenol 325mg Tab) 650 mg PO Q6 PRN PRN Reason: Pain, Mild (1-3) Acetaminophen (Tylenol 325mg Tab) 650 mg PO Q6 PRN PRN Reason: Fever >100.4 F Enoxaparin Sodium (Lovenox) 40 mg SC DAILY [facility]; Protocol Last Admin: 12/24/18 09:43 Dose: 40 mg Sodium Chloride (Sodium Chloride 0.9%) 1,000 mls @ 100 mls/hr IV .Q10H ESTEBAN Last Admin: 12/24/18 22:06 Dose: 100 mls/hr Piperacillin Sod/Tazobactam (Sod 3.375 gm/ Sodium Chloride) 100 mls @ 100 mls/hr IVPB Q6 [facility]; Protocol Last Admin: 12/24/18 22:09 Dose: 100 mls/hr Vancomycin HCl 1 gm/ Sodium (Chloride) 250 mls @ 166.667 mls/hr IVPB Q12 [facility]; Protocol Last Admin: 12/24/18 21:57 Dose: 166.667 mls/hr Ketorolac Tromethamine (Toradol) 15 mg IVP Q6 PRN PRN Reason: Pain, moderate (4-7) Lactobacillus Acidophilus (Bacid Acidophilus) 1 cap PO BID ESTEBAN Last Admin: 12/24/18 16:19 Dose: 1 cap Levalbuterol HCl (Xopenex) 0.63 mg INH PRN PRN PRN Reason: Shortness of Breath Last Admin: 12/24/18 16:04 Dose: 0.63 mg Morphine Sulfate (Morphine) 2 mg IVP Q6 PRN PRN Reason: Pain, severe (8-10) Last Admin: 12/24/18 21:58 Dose: 2 mg Ondansetron HCl (Zofran Inj) 4 mg IVP Q6 PRN PRN Reason: Nausea/Vomiting Sodium Hypochlorite (Dakins Solution 0.125%) 1 appl TOP DAILY [facility] Last Admin: 12/24/18 16:18 Dose: 1 appl - Labs Labs: 12/24/18 04:50 12/24/18 04:50 PT 13.9 Seconds (9.8-13.1) H 12/23/18 12:50 INR 1.2 12/23/18 12:50 APTT 36.8 Seconds (25.6-37.1) 12/23/18 12:50 - Head Exam Head Exam: ATRAUMATIC - Eye Exam Eye Exam: Normal appearance - ENT Exam ENT Exam: Mucous Membranes Dry - Respiratory Exam Respiratory Exam: Decreased Breath Sounds - Cardiovascular Exam Cardiovascular Exam: +S1, +S2 - GI/Abdominal Exam GI & Abdominal Exam: Normal Bowel Sounds Assessment and Plan (1) Breast cancer Assessment & Plan: stage IV f/u ER/RI/HER2 status outpatient treatment Status: Acute (2) Anemia Assessment & Plan: chronic disease Status: Acute
[2018-12-25] MEDS: Piperacillin/Tazobact 3.375 GM in Sodium Chloride 0.9% 100 ML IVPB SCH ×4 (04:30→23:00)
[2018-12-25] MEDS: Lactobacillus Acidophilus 500 MU Cap PO SCH ×2 (08:23→16:31)
[2018-12-25] MEDS: Enoxaparin 40 mg Syringe SC SCH (08:24)
[2018-12-25] MEDS: Sodium Chloride 0.9% 1,000 ML IV SCH (08:25)
--- NOTE | 2018-12-25 12:23 | CP.PCM.PN ---
Subjective - Date & Time of Evaluation Date of Evaluation: 12/25/18 Time of Evaluation: 09:40 - Subjective Subjective: F/U Pulmonary consult No A/D, no SOB on O2. Objective - Vital Signs/Intake and Output Vital Signs (last 24 hours): Temp Pulse Resp BP Pulse Ox 98.1 F 113 H 20 121/77 92 L 12/25/18 09:00 12/25/18 09:00 12/25/18 09:00 12/25/18 09:00 12/25/18 09:00 - Medications Medications: Current Medications Acetaminophen (Tylenol 325mg Tab) 650 mg PO Q6 PRN PRN Reason: Pain, Mild (1-3) Acetaminophen (Tylenol 325mg Tab) 650 mg PO Q6 PRN PRN Reason: Fever >100.4 F Enoxaparin Sodium (Lovenox) 40 mg SC DAILY [facility]; Protocol Last Admin: 12/25/18 08:24 Dose: 40 mg Sodium Chloride (Sodium Chloride 0.9%) 1,000 mls @ 100 mls/hr IV .Q10H ESTEBAN Last Admin: 12/25/18 08:25 Dose: 100 mls/hr Piperacillin Sod/Tazobactam (Sod 3.375 gm/ Sodium Chloride) 100 mls @ 100 mls/hr IVPB Q6 [facility]; Protocol Last Admin: 12/25/18 10:04 Dose: 100 mls/hr Vancomycin HCl 1 gm/ Sodium (Chloride) 250 mls @ 166.667 mls/hr IVPB Q12 [facility]; Protocol Last Admin: 12/25/18 08:24 Dose: 166.667 mls/hr Ketorolac Tromethamine (Toradol) 15 mg IVP Q6 PRN PRN Reason: Pain, moderate (4-7) Lactobacillus Acidophilus (Bacid Acidophilus) 1 cap PO BID ESTEBAN Last Admin: 12/25/18 08:23 Dose: 1 cap Levalbuterol HCl (Xopenex) 0.63 mg INH PRN PRN PRN Reason: Shortness of Breath Last Admin: 12/24/18 16:04 Dose: 0.63 mg Morphine Sulfate (Morphine) 2 mg IVP Q6 PRN PRN Reason: Pain, severe (8-10) Last Admin: 12/25/18 06:15 Dose: 2 mg Ondansetron HCl (Zofran Inj) 4 mg IVP Q6 PRN PRN Reason: Nausea/Vomiting Sodium Hypochlorite (Dakins Solution 0.125%) 1 appl TOP DAILY [facility] Last Admin: 12/25/18 08:23 Dose: 1 appl - Labs Labs: 12/24/18 04:50 12/24/18 04:50 PT 13.9 Seconds (9.8-13.1) H 12/23/18 12:50 INR 1.2 12/23/18 12:50 APTT 36.8 Seconds (25.6-37.1) 12/23/18 12:50 - Constitutional Appears: No Acute Distress, Cachectic, Chronically Ill - Head Exam Head Exam: NORMAL INSPECTION - Eye Exam Eye Exam: PERRL - ENT Exam ENT Exam: Normal Exam - Neck Exam Neck Exam: Normal Inspection - Respiratory Exam Respiratory Exam: Decreased Breath Sounds, Rhonchi - Cardiovascular Exam Cardiovascular Exam: Tachycardia - GI/Abdominal Exam GI & Abdominal Exam: Soft, Normal Bowel Sounds - Extremities Exam Extremities Exam: Normal Inspection - Back Exam Back Exam: NORMAL INSPECTION - Neurological Exam Neurological Exam: Alert, Oriented x3 Additional comments: No focal motor/sensory deficit. - Psychiatric Exam Psychiatric exam: Normal Mood - Skin Skin Exam: Warm Assessment and Plan (1) Infiltrate of lung present on computed tomography Status: Acute (2) Metastasis to lung Status: Acute (3) Status post thoracentesis Status: Chronic (4) Bilateral pleural effusion Status: Acute (5) Breast carcinoma metastatic to multiple sites Status: Acute (6) Pneumothorax on right Status: Acute - Assessment and Plan (Free Text) Plan: Continue abx Tx, O2 NC 2 L/M and rest of Tx.
[2018-12-26] MEDS: Piperacillin/Tazobact 3.375 GM in Sodium Chloride 0.9% 100 ML IVPB SCH ×4 (03:55→21:47)
[2018-12-26 07:01] LABS: MEAN CORPUSCULAR HEMOGLOBIN 28.8 pg (27.0-31.0); MEAN CORPUSCULAR HGB CONC 32.7 g/dL (33.0-37.0); RBC 3.47 Mil/uL (3.80-5.20); RED CELL DISTRIBUTION WIDTH 18.1 % (11.5-14.5); WHITE BLOOD COUNT 3.3 K/uL (4.8-10.8)
[2018-12-26 07:11] LABS: ALB/GLOB RATIO 0.9 (1.0-2.1); ALBUMIN 3.5 g/dL (3.5-5.0); ALT/SGPT 18 U/L (9-52); AST/SGOT 62 U/L (14-36); BLOOD UREA NITROGEN 3 mg/dl (7-17); CALCIUM 9.4 mg/dL (8.4-10.2); GFR NON-AFRICAN AMERICAN > 60
[2018-12-26] MEDS: Lactobacillus Acidophilus 500 MU Cap PO SCH ×2 (08:30→16:24)
[2018-12-26] MEDS: Enoxaparin 40 mg Syringe SC SCH (08:31)
[2018-12-26] MEDS: Sodium Chloride 0.9% 1,000 ML IV SCH (08:31)
--- NOTE | 2018-12-26 13:56 | PN ---
DATE: 12/26/2018 SUBJECTIVE: The patient seen and examined. Interim events noted. Consults noted and appreciated. Pulmonary, Infectious Disease, and Hematology-Oncology followup and interventions noted and appreciated. The patient remains in progressive care unit on telemetry monitoring. Complains of cancer-related pain, adequately controlled with current pain management. No new complaints. She has exertional dyspnea. PHYSICAL EXAMINATION: GENERAL: The patient is in no acute distress. VITAL SIGNS: Stable. HEART: S1, S2. Normal and regular. LUNGS: Good bilateral air exchange. ABDOMEN: Soft, nontender. EXTREMITIES: No edema, no calf swelling, no tenderness, no acute ischemia. CENTRAL NERVOUS SYSTEM: Essentially unchanged. DIAGNOSTIC DATA: Available diagnostic data reviewed. Telemetry monitoring does not show significant arrhythmia. ASSESSMENT AND PLAN: Overall, the patient is hemodynamically stable. Long-term prognosis remains worse due to underlying metastatic cancer. Plan as ordered. Miller Mckeon MD
--- NOTE | 2018-12-26 16:22 | CP.PCM.PN ---
Subjective - Date & Time of Evaluation Date of Evaluation: 12/26/18 Time of Evaluation: 12:30 - Subjective Subjective: F/U Pulmonary consult Pt awake, calm, no A/D, smiling. Objective - Vital Signs/Intake and Output Vital Signs (last 24 hours): Temp Pulse Resp BP Pulse Ox 98.1 F 120 H 16 130/83 93 L 12/26/18 16:08 12/26/18 16:08 12/26/18 16:08 12/26/18 16:08 12/26/18 16:08 Intake and Output: 12/26/18 12/26/18 06:59 18:59 Intake Total 1650 Balance 1650 - Medications Medications: Current Medications Acetaminophen (Tylenol 325mg Tab) 650 mg PO Q6 PRN PRN Reason: Pain, Mild (1-3) Last Admin: 12/25/18 21:37 Dose: 650 mg Acetaminophen (Tylenol 325mg Tab) 650 mg PO Q6 PRN PRN Reason: Fever >100.4 F Diphenhydramine HCl (Benadryl) 25 mg PO HS PRN PRN Reason: Insomnia Last Admin: 12/25/18 21:36 Dose: 25 mg Enoxaparin Sodium (Lovenox) 40 mg SC DAILY [facility]; Protocol Last Admin: 12/26/18 08:31 Dose: 40 mg Sodium Chloride (Sodium Chloride 0.9%) 1,000 mls @ 100 mls/hr IV .Q10H ESTEBAN Last Admin: 12/26/18 08:31 Dose: 100 mls/hr Piperacillin Sod/Tazobactam (Sod 3.375 gm/ Sodium Chloride) 100 mls @ 100 mls/hr IVPB Q6 [facility]; Protocol Last Admin: 12/26/18 09:12 Dose: 100 mls/hr Vancomycin HCl 1 gm/ Sodium (Chloride) 250 mls @ 166.667 mls/hr IVPB Q12 [facility]; Protocol Last Admin: 12/26/18 08:30 Dose: 166.667 mls/hr Ketorolac Tromethamine (Toradol) 15 mg IVP Q6 PRN PRN Reason: Pain, moderate (4-7) Lactobacillus Acidophilus (Bacid Acidophilus) 1 cap PO BID ESTEBAN Last Admin: 12/26/18 08:30 Dose: 1 cap Levalbuterol HCl (Xopenex) 0.63 mg INH PRN PRN PRN Reason: Shortness of Breath Last Admin: 12/24/18 16:04 Dose: 0.63 mg Morphine Sulfate (Morphine) 2 mg IVP Q6 PRN PRN Reason: Pain, severe (8-10) Last Admin: 12/26/18 10:44 Dose: 2 mg Ondansetron HCl (Zofran Inj) 4 mg IVP Q6 PRN PRN Reason: Nausea/Vomiting Sodium Hypochlorite (Dakins Solution 0.125%) 1 appl TOP DAILY [facility] Last Admin: 12/26/18 09:12 Dose: 1 appl - Labs Labs: 12/26/18 05:42 12/26/18 05:42 PT 13.9 Seconds (9.8-13.1) H 12/23/18 12:50 INR 1.2 12/23/18 12:50 APTT 36.8 Seconds (25.6-37.1) 12/23/18 12:50 - Constitutional Appears: No Acute Distress, Cachectic, Chronically Ill - Head Exam Head Exam: NORMAL INSPECTION - Eye Exam Eye Exam: PERRL - ENT Exam ENT Exam: Normal Exam - Neck Exam Neck Exam: Normal Inspection - Respiratory Exam Respiratory Exam: Decreased Breath Sounds, Rhonchi (scattered) - Cardiovascular Exam Cardiovascular Exam: Tachycardia - GI/Abdominal Exam GI & Abdominal Exam: Soft, Normal Bowel Sounds - Extremities Exam Extremities Exam: Normal Inspection - Back Exam Back Exam: NORMAL INSPECTION - Neurological Exam Neurological Exam: Alert, Oriented x3 Additional comments: No foca; motor/sensoy deficit. - Psychiatric Exam Psychiatric exam: Normal Mood - Skin Skin Exam: Warm Assessment and Plan (1) Infiltrate of lung present on computed tomography Status: Acute (2) Metastasis to lung Status: Acute (3) Status post thoracentesis Status: Chronic (4) Bilateral pleural effusion Status: Acute (5) Breast carcinoma metastatic to multiple sites Status: Acute (6) Pneumothorax on right Status: Acute - Assessment and Plan (Free Text) Plan: Continue O2 NC 2 L/M, Zosyn, Vanco and rest of Tx.
--- NOTE | 2018-12-26 22:54 | CP.PCM.PN ---
Subjective - Date & Time of Evaluation Date of Evaluation: 12/25/18 Time of Evaluation: 16:00 - Subjective Subjective: Comfortable at rest but needs oxygen Objective - Vital Signs/Intake and Output Vital Signs (last 24 hours): Temp Pulse Resp BP Pulse Ox 98.1 F 119 H 17 127/79 93 L 12/26/18 19:48 12/26/18 21:00 12/26/18 19:48 12/26/18 19:48 12/26/18 19:48 - Medications Medications: Current Medications Acetaminophen (Tylenol 325mg Tab) 650 mg PO Q6 PRN PRN Reason: Pain, Mild (1-3) Last Admin: 12/25/18 21:37 Dose: 650 mg Acetaminophen (Tylenol 325mg Tab) 650 mg PO Q6 PRN PRN Reason: Fever >100.4 F Diphenhydramine HCl (Benadryl) 25 mg PO HS PRN PRN Reason: Insomnia Last Admin: 12/25/18 21:36 Dose: 25 mg Enoxaparin Sodium (Lovenox) 40 mg SC DAILY [facility]; Protocol Last Admin: 12/26/18 08:31 Dose: 40 mg Sodium Chloride (Sodium Chloride 0.9%) 1,000 mls @ 100 mls/hr IV .Q10H ESTEBAN Last Admin: 12/26/18 08:31 Dose: 100 mls/hr Piperacillin Sod/Tazobactam (Sod 3.375 gm/ Sodium Chloride) 100 mls @ 100 mls/hr IVPB Q6 [facility]; Protocol Last Admin: 12/26/18 21:47 Dose: 100 mls/hr Vancomycin HCl 1 gm/ Sodium (Chloride) 250 mls @ 166.667 mls/hr IVPB Q12 [facility]; Protocol Last Admin: 12/26/18 20:03 Dose: 166.667 mls/hr Ketorolac Tromethamine (Toradol) 15 mg IVP Q6 PRN PRN Reason: Pain, moderate (4-7) Last Admin: 12/26/18 22:21 Dose: 15 mg Lactobacillus Acidophilus (Bacid Acidophilus) 1 cap PO BID ESTEBAN Last Admin: 12/26/18 16:24 Dose: 1 cap Levalbuterol HCl (Xopenex) 0.63 mg INH PRN PRN PRN Reason: Shortness of Breath Last Admin: 12/24/18 16:04 Dose: 0.63 mg Morphine Sulfate (Morphine) 2 mg IVP Q6 PRN PRN Reason: Pain, severe (8-10) Last Admin: 12/26/18 10:44 Dose: 2 mg Ondansetron HCl (Zofran Inj) 4 mg IVP Q6 PRN PRN Reason: Nausea/Vomiting Sodium Hypochlorite (Dakins Solution 0.125%) 1 appl TOP DAILY [facility] Last Admin: 12/26/18 09:12 Dose: 1 appl - Labs Labs: 12/26/18 05:42 12/26/18 05:42 PT 13.9 Seconds (9.8-13.1) H 12/23/18 12:50 INR 1.2 12/23/18 12:50 APTT 36.8 Seconds (25.6-37.1) 12/23/18 12:50 - Head Exam Head Exam: ATRAUMATIC - Eye Exam Eye Exam: Normal appearance - ENT Exam ENT Exam: Mucous Membranes Dry - Respiratory Exam Respiratory Exam: NORMAL BREATHING PATTERN - Cardiovascular Exam Cardiovascular Exam: +S1, +S2 - GI/Abdominal Exam GI & Abdominal Exam: Normal Bowel Sounds Assessment and Plan (1) Breast cancer Assessment & Plan: stage IV f/u ER/OK/HER2 status outpatient treatment Status: Acute (2) Anemia Assessment & Plan: chronic disease Status: Acute
--- NOTE | 2018-12-26 22:55 | CP.PCM.PN ---
Subjective - Date & Time of Evaluation Date of Evaluation: 12/26/18 Time of Evaluation: 17:00 - Subjective Subjective: Breathing better with oxygen Objective - Vital Signs/Intake and Output Vital Signs (last 24 hours): Temp Pulse Resp BP Pulse Ox 98.1 F 119 H 17 127/79 93 L 12/26/18 19:48 12/26/18 21:00 12/26/18 19:48 12/26/18 19:48 12/26/18 19:48 - Medications Medications: Current Medications Acetaminophen (Tylenol 325mg Tab) 650 mg PO Q6 PRN PRN Reason: Pain, Mild (1-3) Last Admin: 12/25/18 21:37 Dose: 650 mg Acetaminophen (Tylenol 325mg Tab) 650 mg PO Q6 PRN PRN Reason: Fever >100.4 F Diphenhydramine HCl (Benadryl) 25 mg PO HS PRN PRN Reason: Insomnia Last Admin: 12/25/18 21:36 Dose: 25 mg Enoxaparin Sodium (Lovenox) 40 mg SC DAILY ESTEBAN; Protocol Last Admin: 12/26/18 08:31 Dose: 40 mg Sodium Chloride (Sodium Chloride 0.9%) 1,000 mls @ 100 mls/hr IV .Q10H ESTEBAN Last Admin: 12/26/18 08:31 Dose: 100 mls/hr Piperacillin Sod/Tazobactam (Sod 3.375 gm/ Sodium Chloride) 100 mls @ 100 mls/hr IVPB Q6 ESTEBAN; Protocol Last Admin: 12/26/18 21:47 Dose: 100 mls/hr Vancomycin HCl 1 gm/ Sodium (Chloride) 250 mls @ 166.667 mls/hr IVPB Q12 ESTEBAN; Protocol Last Admin: 12/26/18 20:03 Dose: 166.667 mls/hr Ketorolac Tromethamine (Toradol) 15 mg IVP Q6 PRN PRN Reason: Pain, moderate (4-7) Last Admin: 12/26/18 22:21 Dose: 15 mg Lactobacillus Acidophilus (Bacid Acidophilus) 1 cap PO BID ESTEBAN Last Admin: 12/26/18 16:24 Dose: 1 cap Levalbuterol HCl (Xopenex) 0.63 mg INH PRN PRN PRN Reason: Shortness of Breath Last Admin: 12/24/18 16:04 Dose: 0.63 mg Morphine Sulfate (Morphine) 2 mg IVP Q6 PRN PRN Reason: Pain, severe (8-10) Last Admin: 12/26/18 10:44 Dose: 2 mg Ondansetron HCl (Zofran Inj) 4 mg IVP Q6 PRN PRN Reason: Nausea/Vomiting Sodium Hypochlorite (Dakins Solution 0.125%) 1 appl TOP DAILY [facility] Last Admin: 12/26/18 09:12 Dose: 1 appl - Labs Labs: 12/26/18 05:42 12/26/18 05:42 PT 13.9 Seconds (9.8-13.1) H 12/23/18 12:50 INR 1.2 12/23/18 12:50 APTT 36.8 Seconds (25.6-37.1) 12/23/18 12:50 - Head Exam Head Exam: ATRAUMATIC - Eye Exam Eye Exam: Normal appearance - Respiratory Exam Respiratory Exam: NORMAL BREATHING PATTERN - Cardiovascular Exam Cardiovascular Exam: +S1, +S2 - GI/Abdominal Exam GI & Abdominal Exam: Normal Bowel Sounds Assessment and Plan (1) Breast cancer Assessment & Plan: stage IV f/u ER/CO/HER2 status outpatient treatment Status: Acute (2) Anemia Assessment & Plan: chronic disease Status: Acute
[2018-12-27] MEDS: Sodium Chloride 0.9% 1,000 ML IV SCH ×2 (00:30→12:33)
[2018-12-27] MEDS: Piperacillin/Tazobact 3.375 GM in Sodium Chloride 0.9% 100 ML IVPB SCH ×4 (03:52→22:15)
[2018-12-27 05:52] LABS: HEMOGLOBIN 10.2 g/dL (12.0-16.0); MEAN CELL VOLUME 89.1 fl (81.0-99.0); MEAN CORPUSCULAR HEMOGLOBIN 28.7 pg (27.0-31.0); MEAN CORPUSCULAR HGB CONC 32.1 g/dL (33.0-37.0); RBC 3.58 Mil/uL (3.80-5.20); RED CELL DISTRIBUTION WIDTH 18.2 % (11.5-14.5); WHITE BLOOD COUNT 3.4 K/uL (4.8-10.8)
[2018-12-27 06:13] LABS: ALB/GLOB RATIO 0.9 (1.0-2.1); ALBUMIN 3.5 g/dL (3.5-5.0); ALT/SGPT 14 U/L (9-52); AST/SGOT 70 U/L (14-36); BLOOD UREA NITROGEN 2 mg/dl (7-17); CALCIUM 9.3 mg/dL (8.4-10.2); GFR NON-AFRICAN AMERICAN > 60
[2018-12-27] MEDS: Enoxaparin 40 mg Syringe SC SCH (08:25)
[2018-12-27] MEDS: Lactobacillus Acidophilus 500 MU Cap PO SCH ×2 (08:30→16:32)
--- NOTE | 2018-12-27 08:59 | PN ---
DATE: 12/25/2018 SUBJECTIVE: The patient seen and examined. Interim events noted. Consults noted and appreciated. Hematology, Oncology, Pulmonary consult and intervention noted and appreciated. The patient remains in progressive care unit on telemetry monitoring, feels okay. Denies any specific complaint. No chest pain or shortness of breath, although does get short of breath on minimal exertion. Pain is adequately controlled with p.r.n. morphine. PHYSICAL EXAMINATION: GENERAL: The patient is in no acute distress. VITAL SIGNS: Stable. HEART: S1 and S2, normal and regular. LUNGS: Good bilateral air exchange. ABDOMEN: Soft, nontender. EXTREMITIES: No edema, no calf swelling, no tenderness. No acute ischemia. CENTRAL NERVOUS SYSTEM: Exam is essentially unchanged. DIAGNOSTIC DATA: Available diagnostic data reviewed. Telemetry monitoring does not reveal significant arrhythmia. Overall, the patient is hemodynamically stable, although long-term prognosis remains poor and still has significant dyspnea on exertion. Plan as ordered. Case and plan discussed with the patient. Miller Mckeon MD
[2018-12-27] MEDS ORDERED: Potassium Chloride 20 mEq ER Tab PO ONE (11:08)
--- NOTE | 2018-12-27 13:50 | RAD ---
Date of service: 12/27/2018 HISTORY: Dyspnea. COMPARISON: 12/10/2018, 12/24/2018 serial chest radiographs. TECHNIQUE: Chest PA and lateral views FINDINGS: LUNGS: Stable pulmonary metastatic disease. Stable confluent consolidative changes left upper lobe. PLEURA: Pleural effusions are again identified. CARDIOVASCULAR: No aortic atherosclerotic calcification present. Normal cardiac size. No pulmonary vascular congestion. OSSEOUS STRUCTURES: No significant abnormalities. VISUALIZED UPPER ABDOMEN: Normal. OTHER FINDINGS: None. IMPRESSION: Widely disseminated pulmonary metastatic disease. Stable pulmonary parenchymal findings particularly rib left upper lobe. Stable bilateral pleural effusions.
--- NOTE | 2018-12-27 14:03 | CP.PCM.PN ---
Subjective - Date & Time of Evaluation Date of Evaluation: 12/27/18 Time of Evaluation: 11:20 - Subjective Subjective: F/U Pulmonary consult. No SOB at rest with O2, [place] with O2, cough with scant yellowish secretion Objective - Vital Signs/Intake and Output Vital Signs (last 24 hours): Temp Pulse Resp BP Pulse Ox 97.5 F L 104 H 20 124/84 93 L 12/27/18 08:36 12/27/18 08:36 12/27/18 08:36 12/27/18 08:36 12/27/18 08:36 - Medications Medications: Current Medications Acetaminophen (Tylenol 325mg Tab) 650 mg PO Q6 PRN PRN Reason: Pain, Mild (1-3) Last Admin: 12/25/18 21:37 Dose: 650 mg Acetaminophen (Tylenol 325mg Tab) 650 mg PO Q6 PRN PRN Reason: Fever >100.4 F Diphenhydramine HCl (Benadryl) 25 mg PO HS PRN PRN Reason: Insomnia Last Admin: 12/25/18 21:36 Dose: 25 mg Sodium Chloride (Sodium Chloride 0.9%) 1,000 mls @ 100 mls/hr IV .Q10H ESTEBAN Last Admin: 12/27/18 12:33 Dose: Not Given Piperacillin Sod/Tazobactam (Sod 3.375 gm/ Sodium Chloride) 100 mls @ 100 mls/hr IVPB Q6 ESTEBAN; Protocol Last Admin: 12/27/18 12:32 Dose: 100 mls/hr Vancomycin HCl 1 gm/ Sodium (Chloride) 250 mls @ 166.667 mls/hr IVPB Q12 ESTEBAN; Protocol Last Admin: 12/27/18 08:25 Dose: 166.667 mls/hr Ketorolac Tromethamine (Toradol) 15 mg IVP Q6 PRN PRN Reason: Pain, moderate (4-7) Last Admin: 12/26/18 22:21 Dose: 15 mg Lactobacillus Acidophilus (Bacid Acidophilus) 1 cap PO BID ESTEBAN Last Admin: 12/27/18 08:30 Dose: 1 cap Levalbuterol HCl (Xopenex) 0.63 mg INH PRN PRN PRN Reason: Shortness of Breath Last Admin: 12/24/18 16:04 Dose: 0.63 mg Morphine Sulfate (Morphine) 2 mg IVP Q6 PRN PRN Reason: Pain, severe (8-10) Last Admin: 12/26/18 10:44 Dose: 2 mg Ondansetron HCl (Zofran Inj) 4 mg IVP Q6 PRN PRN Reason: Nausea/Vomiting Sodium Hypochlorite (Dakins Solution 0.125%) 1 appl TOP DAILY [facility] Last Admin: 12/27/18 09:39 Dose: 1 appl Tamoxifen Citrate (Nolvadex) 20 mg PO DAILY [facility] Last Admin: 12/27/18 12:49 Dose: 20 mg - Labs Labs: 12/27/18 04:45 12/27/18 04:45 PT 13.9 Seconds (9.8-13.1) H 12/23/18 12:50 INR 1.2 12/23/18 12:50 APTT 36.8 Seconds (25.6-37.1) 12/23/18 12:50 - Constitutional Appears: No Acute Distress, Cachectic, Chronically Ill - Head Exam Head Exam: NORMAL INSPECTION - Eye Exam Eye Exam: PERRL - ENT Exam ENT Exam: Normal Exam - Neck Exam Neck Exam: Normal Inspection - Respiratory Exam Respiratory Exam: Decreased Breath Sounds Additional comments: Craklels at bases - Cardiovascular Exam Cardiovascular Exam: Tachycardia - GI/Abdominal Exam GI & Abdominal Exam: Soft, Normal Bowel Sounds - Extremities Exam Extremities Exam: Normal Inspection - Back Exam Back Exam: NORMAL INSPECTION - Neurological Exam Neurological Exam: Alert, Oriented x3 Additional comments: No focal motor/sensory deficit. - Psychiatric Exam Psychiatric exam: Normal Mood - Skin Skin Exam: Warm Assessment and Plan (1) Infiltrate of lung present on computed tomography Status: Acute (2) Metastasis to lung Status: Acute (3) Status post thoracentesis Status: Chronic (4) Bilateral pleural effusion Status: Acute (5) Breast carcinoma metastatic to multiple sites Status: Acute (6) Pneumothorax on right Status: Acute - Assessment and Plan (Free Text) Plan: Continue Zosyn, Vanco and rest of Tx.
[2018-12-27 19:37] LABS: BASO % 0.2 % (0.0-2.0); HEMOGLOBIN 10.3 g/dL (12.0-16.0); LYMPH # 0.1 K/uL (1.0-4.3); LYMPH % 1.3 % (20.0-40.0); MEAN CELL VOLUME 89.9 fl (81.0-99.0); MEAN CORPUSCULAR HEMOGLOBIN 28.7 pg (27.0-31.0); MEAN PLATELET VOLUME 7.4 fl (7.2-11.7); MONO # 0.3 K/uL (0.0-0.8); MONO % 5.7 % (0.0-10.0); NEUT # 5.4 K/uL (1.8-7.0); NEUT % 92.8 % (50.0-75.0); NRBC % 0.2 % (0.0-0.0); PLATELET COUNT 419 K/uL (130-400); RED CELL DISTRIBUTION WIDTH 18.5 % (11.5-14.5); WHITE BLOOD COUNT 5.9 K/uL (4.8-10.8)
[2018-12-27] MEDS ORDERED: Iodixanol 320 MG/ML 100 ML BOTTLE IV ONE (19:37)
[2018-12-27] MEDS ORDERED: Sodium Chloride 0.9% 50 ML IV ONE (19:38)
[2018-12-27 19:41] LABS: ABG ALLEN TEST YES; ARTERIAL BLOOD GAS HCO3 26.8 mmol/L (21-28); ARTERIAL BLOOD GAS O2 SAT 88.1 % (95-98); ARTERIAL BLOOD GAS PCO2 111 mm/Hg (35-45); ARTERIAL BLOOD GAS PH 7.12 (7.35-7.45); ARTERIAL BLOOD GAS PO2 61 mm/Hg (80-100); ARTERIAL BLOOD GAS TCO2 39.5 mmol/L (22-28)
--- NOTE | 2018-12-27 19:44 | PCM.RRT ---
<Grace Castellanos - Last Filed: 12/27/18 20:54> FORMING ACID DUMPER Nurse Assessment - Situation FORMING ACID DUMPER Responder Arrival Time: 19:19 FORMING ACID DUMPER Reason for Call: O2 Saturation below 90%, Change in Mental Status I.Reason for FORMING ACID DUMPER - A) Acute Change in Patient: (Select all that apply): Acute change in mental status - Neurological Status (Select all that apply): Confused. absent: Alert, Responsive, Oriented, Verbal - Respiratory Oxygen Delivery Method: Nasal Cannula @L/min (5L) - Constitutional Appears: Confused, Chronically Ill - Head Head Exam: NORMAL INSPECTION - Respiratory Exam Respiratory Exam: Decreased Breath Sounds (R>L), Respiratory Distress. absent: NORMAL BREATHING PATTERN - Cardiovascular Exam Cardiovascular Exam: Tachycardia, +S1, +S2 - Neurological Exam Neurological Exam: Altered Plan - Assessment of Findings&Treatment Plan Assessment and Plan: 43 y/o female w/ hx of breast cancer w/ mets to lungs 7:16PM FORMING ACID DUMPER called due to oxygen desaturation in the 70%s as well as AMS 7:18PM BP 147/68, HR 119, O2 sat 88% on 5L O2 NC EKG, ABG, CBC, CMP, Lactic acid levels, Troponin, and Pro-BNP ordered Head CT w/out Contrast and Chest CTA ordered Patient's phoned, Sravan Gunter, consented to intubation Patient transferred to ICU. <Marcelino Nguyen - Last Filed: 12/27/18 22:52> Plan - Assessment of Findings&Treatment Plan History as documented by resident was reviewed with patient and resident. I performed the robledo elements of exam and agree with the above findings. Diagnostics were reviewed and medical decision making and plan of care performed by me. Unfortunate case of 43 yo female with stage IV breast cancer with extensive lung mets admitted for SOB being treated for pneumonia/effusion/small pneumothorax. FORMING ACID DUMPER was called for hypoxia and unresponsiveness. Upon my assessment patient was hypoxic and diaphoretic and not verbal which as per her nurse is a significant change from her baseline. On exam she was tachypneic and tachycardic and in respiratory distress with use of accessory muscles and coarse breathing sound b/l. JVD positive. Ordered stat EKG and ABG and blood work. EKG I personally reviewed showed sinus tach but no evidence of ongoing ischemia. ABG showed acute hypoxic hypercapnic respiratory failure with PH of 7.12 and PCO2 of 111. Ordered stat CT head and CTA chest. Transferred her to ICU in preparation for intubation; however, after having an extensive discussion at bedside regarding goals of care family opted for DNR/DNI. Accompanied her to CT suite. Awaiting results of CT head and CTA chest. Meanwhile will give 40 IV push of Lasix and 2 mg of IV morphine and will start her on Bipap. Prognosis extremely poor. Attending was informed. I spent total of 43 min of critical care time trying to stabilize this critically unstable patient excluding time spent for any procedures.
[2018-12-27 19:52] LABS: ALB/GLOB RATIO 0.9 (1.0-2.1); ALBUMIN 3.7 g/dL (3.5-5.0); ALT/SGPT 19 U/L (9-52); AST/SGOT 76 U/L (14-36); BLOOD UREA NITROGEN 3 mg/dl (7-17); CALCIUM 9.6 mg/dL (8.4-10.2); GFR NON-AFRICAN AMERICAN > 60
[2018-12-27 20:11] LABS: B-TYPE NATRIURETIC PEPTIDE 728 pg/ml (0-450)
[2018-12-27 21:19] LABS: BANDS 2 % (0-2); LYMPHOCYTE 5 % (20-50); MONOCYTE 4 % (0-10); NEUTROPHIL 89 % (42-75); TOTAL CELLS COUNTED 100
[2018-12-27 21:20] LABS: ANISOCYTOSIS SLIGHT; PLATELET ESTIMATE NORMAL (NORMAL)
[2018-12-27 21:51] LABS: ABG ALLEN TEST YES; ARTERIAL BLOOD GAS HCO3 27.8 mmol/L (21-28); ARTERIAL BLOOD GAS HEMOGLOBIN 10.7 g/dL (11.7-17.4); ARTERIAL BLOOD GAS O2 CAPACITY 15.5 mL/dL (16-24); ARTERIAL BLOOD GAS O2 CONTENT 15.5 ML/dL (15-23); ARTERIAL BLOOD GAS O2 SAT 100.1 % (95-98); ARTERIAL BLOOD GAS PCO2 97 mm/Hg (35-45); ARTERIAL BLOOD GAS PH 7.16 (7.35-7.45); ARTERIAL BLOOD GAS PO2 290 mm/Hg (80-100); ARTERIAL BLOOD GAS TCO2 37.6 mmol/L (22-28)
[2018-12-28] MEDS: Piperacillin/Tazobact 3.375 GM in Sodium Chloride 0.9% 100 ML IVPB SCH ×4 (04:15→21:08)
[2018-12-28 06:03] LABS: HEMOGLOBIN 10.4 g/dL (12.0-16.0); MEAN CELL VOLUME 90.5 fl (81.0-99.0); MEAN CORPUSCULAR HEMOGLOBIN 28.7 pg (27.0-31.0); MEAN CORPUSCULAR HGB CONC 31.7 g/dL (33.0-37.0); RBC 3.61 Mil/uL (3.80-5.20); RED CELL DISTRIBUTION WIDTH 18.5 % (11.5-14.5); WHITE BLOOD COUNT 4.9 K/uL (4.8-10.8)
[2018-12-28 06:20] LABS: ABG ALLEN TEST YES; ARTERIAL BLOOD GAS HCO3 29.3 mmol/L (21-28); ARTERIAL BLOOD GAS O2 CAPACITY 14.6 mL/dL (16-24); ARTERIAL BLOOD GAS O2 CONTENT 14.6 ML/dL (15-23); ARTERIAL BLOOD GAS O2 SAT 100.3 % (95-98); ARTERIAL BLOOD GAS PCO2 79 mm/Hg (35-45); ARTERIAL BLOOD GAS PH 7.25 (7.35-7.45); ARTERIAL BLOOD GAS PO2 299 mm/Hg (80-100)
[2018-12-28 06:29] LABS: ALB/GLOB RATIO 0.9 (1.0-2.1); ALBUMIN 3.7 g/dL (3.5-5.0); ALT/SGPT 21 U/L (9-52); AST/SGOT 110 U/L (14-36); BLOOD UREA NITROGEN 3 mg/dl (7-17); CALCIUM 9.4 mg/dL (8.4-10.2); GFR NON-AFRICAN AMERICAN > 60
--- NOTE | 2018-12-28 07:19 | CP.PCM.PN ---
Subjective - Date & Time of Evaluation Date of Evaluation: 12/28/18 Time of Evaluation: 06:40 - Subjective Subjective: Patient seen and examined this morning with Dr. Mckeon. INTERNET SPECIALIST event noted and reviewed: Respiratory distress/Hypoxia, patient is DNR/DNI: not intubated, c/w BIPAP/CPAP f/u head CT and Chest CT official reports Objective - Vital Signs/Intake and Output Vital Signs (last 24 hours): Temp Pulse Resp BP Pulse Ox 99 F 111 H 42 H 94/60 L 100 12/28/18 04:00 12/28/18 06:57 12/28/18 06:57 12/28/18 06:57 12/28/18 06:57 Intake and Output: 12/28/18 12/28/18 06:59 18:59 Intake Total 350 Output Total 1200 Balance -850 - Medications Medications: Current Medications Acetaminophen (Tylenol 325mg Tab) 650 mg PO Q6 PRN PRN Reason: Pain, Mild (1-3) Last Admin: 12/25/18 21:37 Dose: 650 mg Acetaminophen (Tylenol 325mg Tab) 650 mg PO Q6 PRN PRN Reason: Fever >100.4 F Diphenhydramine HCl (Benadryl) 25 mg PO HS PRN PRN Reason: Insomnia Last Admin: 12/25/18 21:36 Dose: 25 mg Piperacillin Sod/Tazobactam (Sod 3.375 gm/ Sodium Chloride) 100 mls @ 100 mls/hr IVPB Q6 ESTEBAN; Protocol Last Admin: 12/27/18 22:15 Dose: 100 mls/hr Vancomycin HCl 1 gm/ Sodium (Chloride) 250 mls @ 166.667 mls/hr IVPB Q12 ESTEBAN; Protocol Last Admin: 12/27/18 22:16 Dose: 166.667 mls/hr Ketorolac Tromethamine (Toradol) 15 mg IVP Q6 PRN PRN Reason: Pain, moderate (4-7) Last Admin: 12/26/18 22:21 Dose: 15 mg Lactobacillus Acidophilus (Bacid Acidophilus) 1 cap PO BID ESTEBAN Last Admin: 12/27/18 16:32 Dose: 1 cap Levalbuterol HCl (Xopenex) 0.63 mg INH PRN PRN PRN Reason: Shortness of Breath Last Admin: 12/24/18 16:04 Dose: 0.63 mg Morphine Sulfate (Morphine) 2 mg IVP Q6 PRN PRN Reason: Pain, severe (8-10) Last Admin: 12/26/18 10:44 Dose: 2 mg Ondansetron HCl (Zofran Inj) 4 mg IVP Q6 PRN PRN Reason: Nausea/Vomiting Sodium Hypochlorite (Dakins Solution 0.125%) 1 appl TOP DAILY [facility] Last Admin: 12/27/18 09:39 Dose: 1 appl Tamoxifen Citrate (Nolvadex) 20 mg PO DAILY [facility] Last Admin: 12/27/18 12:49 Dose: 20 mg - Labs Labs: 12/28/18 05:20 12/28/18 05:20 PT 13.9 Seconds (9.8-13.1) H 12/23/18 12:50 INR 1.2 12/23/18 12:50 APTT 36.8 Seconds (25.6-37.1) 12/23/18 12:50 - Constitutional Appears: No Acute Distress - Head Exam Head Exam: NORMAL INSPECTION - Eye Exam Eye Exam: Normal appearance - ENT Exam ENT Exam: Mucous Membranes Moist - Neck Exam Neck Exam: Normal Inspection - Respiratory Exam Respiratory Exam: Decreased Breath Sounds, Rales (Crakles ), Respiratory Distress - Cardiovascular Exam Cardiovascular Exam: REGULAR RHYTHM, +S1, +S2 - GI/Abdominal Exam GI & Abdominal Exam: Soft, Normal Bowel Sounds. absent: Tenderness - Extremities Exam Extremities Exam: Normal Inspection - Back Exam Back Exam: NORMAL INSPECTION - Skin Skin Exam: Normal Color Assessment and Plan - Assessment and Plan (Free Text) Assessment: A/P: 43 y/o F with PMH of stage IV breast cancer with mets diagnosed in 2016 currently on radiation, multiple pleural effusion s/p thoracentesis and chronic SOB on home oxygen admitted to [facility] for evaluation and treatment of pneumonia/pneumothorax. Patient was admitted to ICU 12/27 for respiratory distress, DNI/DNR, was placed on bipap. Worsening SOB/Respiratory distress and AMS, + Hypoxia, might be worsening R pneumothorax/Plural effusion/infiltrates, + lungs mets & consolidation - Consult Surgery/Pulminary/HemOnc, recommendations appreciated - ER/[place]/HER2 status pending on pleural fluid from last admission - C/w IV Abx as ordered, Zosyn and Vanco - C/w Xopenox and Duoneb as ordered - C/w IVF and NC O2 - C/w daily CXR - Currently on BIPAP and Tachypneic/ (DNI/DNR) - f/u official CT head and Chest Breast Ca. Stage IV with mets to bones and Lungs - Consult HemOnc, Dr. Ornelas - Continue management as per HemOnc, Tamoxifen - Palliative care Chronic pain - C/w pain management as ordered DVT PPX - Lovenox SC daily Case discussed with Dr. Mckeon
--- NOTE | 2018-12-28 10:15 | CARD ---
APPROVED REPORT Date of service: 12/27/2018 EKG Measurement Heart [id number] MD [id number] <Conclusion> Sinus tachycardia Otherwise normal ECG
--- NOTE | 2018-12-28 11:14 | CT ---
Date of service: 12/27/2018 PROCEDURE: CT HEAD WITHOUT CONTRAST. HISTORY: RESIN MIXER Pneumonia. Relevant medical history: Metastatic breast cancer. . COMPARISON: None available. TECHNIQUE: Axial computed tomography images were obtained through the head/brain without intravenous contrast. Supplemental Coronal and Sagittal projections created and reviewed. Radiation dose: Total exam DLP = 734.51 mGy-cm. This CT exam was performed using one or more of the following dose reduction techniques: Automated exposure control, adjustment of the mA and/or kV according to patient size, and/or use of iterative reconstruction technique. FINDINGS: HEMORRHAGE: No intracranial hemorrhage. BRAIN: No mass effect or edema. No atrophy or chronic microvascular ischemic changes. VENTRICLES: Unremarkable. No hydrocephalus. CALVARIUM: Lytic lesion left posterior parietal bone. The finding is marked on the study for review. Axial series 3/image 431. PARANASAL SINUSES: Unremarkable as visualized. No significant inflammatory changes. MASTOID AIR CELLS: Unremarkable as visualized. No inflammatory changes. OTHER FINDINGS: None. IMPRESSION: No acute intracranial abnormalities. No significant findings to account for the clinical presentation. Solitary metastatic lesion in the calvarium. No adjacent dural or intra-axial abnormality. Concordant results (preliminary interpretation) provided by [facility]. Procedure Completed: 19:45. Preliminary Report: Interpreted and electronically signed: 20:34. Final Interpretation: 10:10. December 28, 2018.
--- NOTE | 2018-12-28 11:23 | CT ---
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 CT pulmonary angiogram. TECHNIQUE: Axial computed tomography images were obtained of the chest in the pulmonary arterial phase of enhancement. Coronal and sagittal reformatted images were created and reviewed. Intravenous contrast dose: 80 cc Visipaque 320. Mean Hounsfield value in the main pulmonary artery: 353.66 Radiation dose: Total exam DLP = 315.66 mGy-cm. This CT exam was performed using one or more of the following dose reduction techniques: Automated exposure control, adjustment of the mA and/or kV according to patient size, and/or use of iterative reconstruction technique. FINDINGS: PULMONARY ARTERIES: Unremarkable. No pulmonary embolism. AORTA: No acute findings. No thoracic aortic aneurysm. No atherosclerotic calcification or mural plaque present. LUNGS: Wanted disseminated pulmonary metastatic disease primarily pulmonary nodules ranging from 5 mm to 5.6 cm. Confluent consolidative changes/masses in the left upper lobe. Dependent atelectasis at the lung bases. PLEURAL SPACES: Small bilateral pleural effusions. HEART: Unremarkable. No cardiomegaly. No significant pericardial effusion. LYMPH NODES: Bulky hilar and mediastinal disease bilaterally. BONES, CHEST WALL: Bulky chest wall tumor emanating from the right breast extending 2 right axilla and lateral chest wall. Likely extension into the thorax, tumor in the chest wall indistinguishable from soft tissue masses in the right hemithorax. Mid ext lytic and sclerotic disease bilateral ribs. Incompletely visualized lytic lesion L2 vertebral body sclerotic disease involving the lamina at the level of T11. Sternal lytic disease also noted. OTHER FINDINGS: Hepatic metastatic disease. IMPRESSION: Unremarkable CT pulmonary angiogram. No pulmonary embolus. Widely disseminated tumor above and below the diaphragms described in greater detail above. Concordant results (preliminary interpretation) provided by [facility]. Procedure Completed: 19:53. Preliminary Report: Interpreted and electronically signed: 20:43. Final Interpretation: 11:19. December 28, 2018.
[2018-12-28] MEDS: Lactobacillus Acidophilus 500 MU Cap PO SCH ×2 (11:33→16:53)
--- NOTE | 2018-12-28 13:00 | CP.PCM.PN ---
Subjective - Date & Time of Evaluation Date of Evaluation: 12/28/18 Time of Evaluation: 10:00 - Subjective Subjective: F/U respiratory failure. Pt had REGISTERED DENTAL ASSISTANT called yesterday about 19:17 pm, after found with low saturation 74%, BP: 150/90, HR 122 and AMS, as per , Pt was declared DNR/DNI, family agreeable to be placed in BIPAP, Set Rate 14, FIO2 100%. Pt was transferred to ICU. Objective - Vital Signs/Intake and Output Vital Signs (last 24 hours): Temp Pulse Resp BP Pulse Ox 99.5 F 120 H 48 H 129/80 97 12/28/18 12:00 12/28/18 12:00 12/28/18 12:00 12/28/18 12:00 12/28/18 12:00 Intake and Output: 12/28/18 12/28/18 06:59 18:59 Intake Total 350 Output Total 1200 Balance -850 - Medications Medications: Current Medications Acetaminophen (Tylenol 325mg Tab) 650 mg PO Q6 PRN PRN Reason: Pain, Mild (1-3) Last Admin: 12/25/18 21:37 Dose: 650 mg Acetaminophen (Tylenol 325mg Tab) 650 mg PO Q6 PRN PRN Reason: Fever >100.4 F Diphenhydramine HCl (Benadryl) 25 mg PO HS PRN PRN Reason: Insomnia Last Admin: 12/25/18 21:36 Dose: 25 mg Piperacillin Sod/Tazobactam (Sod 3.375 gm/ Sodium Chloride) 100 mls @ 100 mls/hr IVPB Q6 ESTEBAN; Protocol Last Admin: 12/28/18 09:23 Dose: 100 mls/hr Vancomycin HCl 1 gm/ Sodium (Chloride) 250 mls @ 166.667 mls/hr IVPB Q12 ESTEBAN; Protocol Last Admin: 12/28/18 09:23 Dose: 166.667 mls/hr Ketorolac Tromethamine (Toradol) 15 mg IVP Q6 PRN PRN Reason: Pain, moderate (4-7) Last Admin: 12/26/18 22:21 Dose: 15 mg Lactobacillus Acidophilus (Bacid Acidophilus) 1 cap PO BID ESTEBAN Last Admin: 12/28/18 11:33 Dose: 1 cap Levalbuterol HCl (Xopenex) 0.63 mg INH PRN PRN PRN Reason: Shortness of Breath Last Admin: 12/24/18 16:04 Dose: 0.63 mg Morphine Sulfate (Morphine) 2 mg IVP Q6 PRN PRN Reason: Pain, severe (8-10) Last Admin: 12/26/18 10:44 Dose: 2 mg Ondansetron HCl (Zofran Inj) 4 mg IVP Q6 PRN PRN Reason: Nausea/Vomiting Sodium Hypochlorite (Dakins Solution 0.125%) 1 appl TOP DAILY [facility] Last Admin: 12/27/18 09:39 Dose: 1 appl Tamoxifen Citrate (Nolvadex) 20 mg PO DAILY [facility] Last Admin: 12/28/18 11:34 Dose: 20 mg - Labs Labs: 12/28/18 05:20 12/28/18 05:20 PT 13.9 Seconds (9.8-13.1) H 12/23/18 12:50 INR 1.2 12/23/18 12:50 APTT 36.8 Seconds (25.6-37.1) 12/23/18 12:50 - Constitutional Appears: Chronically Ill - Head Exam Head Exam: NORMAL INSPECTION - ENT Exam ENT Exam: Normal Exam - Neck Exam Neck Exam: Normal Inspection - Respiratory Exam Respiratory Exam: Decreased Breath Sounds (b/l) - Cardiovascular Exam Cardiovascular Exam: Tachycardia - GI/Abdominal Exam GI & Abdominal Exam: Soft, Normal Bowel Sounds - Extremities Exam Additional comments: Edema BLE - Back Exam Back Exam: NORMAL INSPECTION - Neurological Exam Additional comments: Drowsy, on BIPAP - Skin Skin Exam: Warm Assessment and Plan (1) Infiltrate of lung present on computed tomography Status: Acute (2) Metastasis to lung Status: Acute (3) Status post thoracentesis Status: Chronic (4) Bilateral pleural effusion Status: Acute (5) Breast carcinoma metastatic to multiple sites Status: Acute (6) Pneumothorax on right Status: Acute - Assessment and Plan (Free Text) Plan: Chest CT: Unremarkable, no pulmonary embolus. Widely disseminated pulmonary meta static disease. Continue BIPAP settings were adjusted for AGB with high PCO2 and high PO2,, Vanco, zosyn, Morphine and rest of Tx.
--- NOTE | 2018-12-28 17:11 | CP.CCUPN ---
CCU Subjective - Physician Review Subjective (Free Text): 12/28/18 17:11 The patient was Seen/interviewed and examined by me at the bedside during ICU round, Medical records reviewed and Management issues were discussed and formulated with the house staff. Events reviewed Ms Vera is a 43 years old female with stage IV metastatic breast cancer with mets to the bone and the lung who initially presented to the emergency room with worsening shortness of breath nonproductive cough and generalized weakness Chest CT scan on admission revealed left upper lobe pneumonia with pleural effusion, atelectasis and 5% small anterior pneumothorax He was evaluated by thoracic surgery, no surgical intervention deemed needed at that time Patient was started on empiric antibiotic coverage, DuoNeb's admitted to the Telemetry for further management Rapid response team was called last night around 8 PM for a change in the mental status and hypoxemia Patient was found confused, lethargic, physical exam noted for tachycardia, tachypnea and in respiratory distress using accessory muscles of breathing ABG was done show respiratory and metabolic acidosis with pH of 7.12, PCO2 of 111 Patient was transferred to the ICU for management of acute hypoxemic and hypercapnic respiratory acid failure She receives intravenous Lasix, bronchodilator nebulizer and placed on BiPAP This morning she is more awake, comfortable and in no apparent distress Remains on BiPAP overnight, repeat ABG reviewed Patient afebrile overnight Normal sinus rhythm on the monitor CCU Objective - Vital Signs / Intake & Output Vital Signs (Last 4 hours): Vital Signs Temp Pulse Resp BP Pulse Ox 12/28/18 16:23 116 H 12/28/18 16:00 99.7 F H 126 H 122/70 99 12/28/18 14:00 99.3 F 122 H 42 H 113/70 99 Intake and Output (Last 8hrs): Intake & Output 12/28/18 12/28/18 12/28/18 06:59 14:59 22:59 Intake Total 100 Output Total 1200 Balance -1100 Intake: Intake, Piggyback 100 Oral 0 Output: Urine 1200 Urine, Voided 1200 Other: # Bowel Movements 0 - Physical Exam Physical Exam Limitations: Positive for: Clinical Condition Head: Positive for: Atraumatic, Normocephalic Pupils: Positive for: PERRL Extroacular Muscles: Positive for: EOMI Conjunctiva: Positive for: Normal. Negative for: Injected, Icteric Mouth: Positive for: Moist Mucous Membranes Neck: Positive for: Normal Range of Motion, Trachea Midline Respiratory/Chest: Positive for: Decreased Breath Sounds, Rales, Rhonchi. Negative for: Respiratory Distress, Accessory Muscle Use, Wheezes Cardiovascular: Positive for: Regular Rate and Rhythm, Normal S1, S2. Negative for: Murmurs Back: Negative for: CVA Tenderness, Midline Tenderness Upper Extremity: Negative for: Cyanosis, Edema Lower Extremity: Negative for: Edema, CALF TENDERNESS Neurological: Positive for: GCS=15, CN II-XII Intact Psychiatric: Positive for: Alert, Oriented x 3 - Medications Active Medications: Active Medications Generic Name Dose Route Start Last Admin Trade Name Freq PRN Reason Stop Dose Admin Acetaminophen 650 mg 12/23/18 15:58 12/25/18 21:37 Tylenol 325mg Tab PO 650 mg Q6 PRN Administration Pain, Mild (1-3) Acetaminophen 650 mg 12/23/18 15:58 Tylenol 325mg Tab PO Q6 PRN Fever >100.4 F Diphenhydramine HCl 25 mg 12/25/18 19:18 12/25/18 21:36 Benadryl PO 25 mg HS PRN Administration Insomnia Piperacillin Sod/Tazobactam 100 mls @ 100 mls/hr 12/23/18 22:00 12/28/18 16:53 Sod 3.375 gm/ Sodium Chloride IVPB 100 mls/hr Q6 ESTEBAN Administration Protocol Vancomycin HCl 1 gm/ Sodium 250 mls @ 166.667 mls/hr 12/23/18 21:00 12/28/18 09:23 Chloride IVPB 166.667 mls/hr Q12 ESTEBAN Administration Protocol Ketorolac Tromethamine 15 mg 12/23/18 15:58 12/26/18 22:21 Toradol IVP 15 mg Q6 PRN Administration Pain, moderate (4-7) Lactobacillus Acidophilus 1 cap 12/24/18 17:00 12/28/18 16:53 Bacid Acidophilus PO 1 cap BID ESTEBAN Administration Levalbuterol HCl 0.63 mg 12/24/18 15:54 12/24/18 16:04 Xopenex INH 0.63 mg PRN PRN Administration Shortness of Breath Morphine Sulfate 2 mg 12/23/18 15:58 12/26/18 10:44 Morphine IVP 2 mg Q6 PRN Administration Pain, severe (8-10) Ondansetron HCl 4 mg 12/23/18 15:58 Zofran Inj IVP Q6 PRN Nausea/Vomiting Sodium Hypochlorite 1 appl 12/24/18 09:30 12/28/18 12:30 Dakins Solution 0.125% TOP 1 appl DAILY ESTEBAN Administration Tamoxifen Citrate 20 mg 12/27/18 10:15 12/28/18 11:34 Nolvadex PO 20 mg DAILY ESTEBAN Administration - Patient Studies Lab Studies: Microbiology Studies 12/23/18 17:00 Blood Culture - Preliminary Blood NO GROWTH AFTER 4 DAYS Lab Studies 12/28/18 12/28/18 12/28/18 Range/Units 06:15 05:20 05:20 WBC 4.9 (4.8-10.8) K/uL RBC 3.61 L (3.80-5.20) Mil/uL Hgb 10.4 L (12.0-16.0) g/dL Hct 32.7 L (34.0-47.0) % MCV 90.5 (81.0-99.0) fl MCH 28.7 (27.0-31.0) pg MCHC 31.7 L (33.0-37.0) g/dL RDW 18.5 H (11.5-14.5) % Plt Count 348 (130-400) K/uL MPV (7.2-11.7) fl Neut % (Auto) (50.0-75.0) % Lymph % (Auto) (20.0-40.0) % Wagoner % (Auto) (0.0-10.0) % Eos % (Auto) (0.0-4.0) % Baso % (Auto) (0.0-2.0) % Neut # (Auto) (1.8-7.0) K/uL Lymph # (Auto) (1.0-4.3) K/uL Wagoner # (Auto) (0.0-0.8) K/uL Eos # (Auto) (0.0-0.7) K/uL Baso # (Auto) (0.0-0.2) K/uL Neutrophils % (Manual) (42-75) % Band Neutrophils % (0-2) % Lymphocytes % (Manual) (20-50) % Monocytes % (Manual) (0-10) % Platelet Estimate (NORMAL) Anisocytosis (manual) pCO2 79 H* (35-45) mm/Hg pO2 299 H (80-100) mm/Hg HCO3 29.3 H (21-28) mmol/L ABG pH 7.25 L (7.35-7.45) ABG Total CO2 37.0 H (22-28) mmol/L ABG O2 Saturation 100.3 H (95-98) % ABG O2 Content 14.6 L (15-23) ML/dL ABG Base Excess 5.6 H (-2.0-3.0) mmol/L ABG Hemoglobin 10.0 L (11.7-17.4) g/dL ABG Carboxyhemoglobin 1.1 (0.5-1.5) % POC ABG HHb (Measured) -0.3 L (0.0-5.0) % ABG Methemoglobin 0.9 (0.0-3.0) % ABG O2 Capacity 14.6 L (16-24) mL/dL Cliff Test Yes ABG Potassium (3.6-5.2) mmol/L A-a O2 Difference 315.0 mm/Hg Hgb O2 Saturation 98.3 H (95.0-98.0) % Glucose (65-105) mg/dL Lactate (0.7-2.1) mmol/L Vent Mode Bipap Mechanical Rate 14 FiO2 100.0 % Inspiratory BiPAP 15 Expiratory BiPAP 8 Crit Value Called To Geeta borjas rn Crit Value Called By 6075 Crit Value Read Back Y Blood Gas Notified Time 619 Sodium 142 (132-148) mmol/l Potassium 4.5 (3.6-5.0) MMOL/L Chloride 100 (98-107) mmol/L Carbon Dioxide 33 H (22-30) mmol/L Anion Gap 14 (10-20) BUN 3 L (7-17) mg/dl Creatinine 0.3 L (0.7-1.2) mg/dl Est GFR ( Amer) > 60 Est GFR (Non-Af Amer) > 60 POC Glucose (mg/dL) (65-110) mg/dL Random Glucose 96 (65-105) mg/dL Lactic Acid (0.7-2.1) mmol/L Calcium 9.4 (8.4-10.2) mg/dL Total Bilirubin 0.4 (0.2-1.3) mg/dl AST 110 H D (14-36) U/L ALT 21 (9-52) U/L Alkaline Phosphatase 142 H (38-126) U/L Troponin I (0.00-0.120) ng/mL NT-Pro-B Natriuret Pep (0-450) pg/ml Total Protein 7.5 (6.3-8.2) G/DL Albumin 3.7 (3.5-5.0) g/dL Globulin 3.9 (2.2-3.9) gm/dL Albumin/Globulin Ratio 0.9 L (1.0-2.1) Arterial Blood Potassium (3.6-5.2) mmol/L 12/27/18 12/27/18 12/27/18 Range/Units 21:42 19:37 19:30 WBC (4.8-10.8) K/uL RBC (3.80-5.20) Mil/uL Hgb (12.0-16.0) g/dL Hct (34.0-47.0) % MCV (81.0-99.0) fl MCH (27.0-31.0) pg MCHC (33.0-37.0) g/dL RDW (11.5-14.5) % Plt Count (130-400) K/uL MPV (7.2-11.7) fl Neut % (Auto) (50.0-75.0) % Lymph % (Auto) (20.0-40.0) % Wagoner % (Auto) (0.0-10.0) % Eos % (Auto) (0.0-4.0) % Baso % (Auto) (0.0-2.0) % Neut # (Auto) (1.8-7.0) K/uL Lymph # (Auto) (1.0-4.3) K/uL Wagoner # (Auto) (0.0-0.8) K/uL Eos # (Auto) (0.0-0.7) K/uL Baso # (Auto) (0.0-0.2) K/uL Neutrophils % (Manual) (42-75) % Band Neutrophils % (0-2) % Lymphocytes % (Manual) (20-50) % Monocytes % (Manual) (0-10) % Platelet Estimate (NORMAL) Anisocytosis (manual) pCO2 97 H* 111 H* (35-45) mm/Hg pO2 290 H 61 L (80-100) mm/Hg HCO3 27.8 26.8 (21-28) mmol/L ABG pH 7.16 L* 7.12 L* (7.35-7.45) ABG Total CO2 37.6 H 39.5 H (22-28) mmol/L ABG O2 Saturation 100.1 H 88.1 L (95-98) % ABG O2 Content 15.5 (15-23) ML/dL ABG Base Excess 3.6 H 3.0 (-2.0-3.0) mmol/L ABG Hemoglobin 10.7 L (11.7-17.4) g/dL ABG Carboxyhemoglobin 1.3 (0.5-1.5) % POC ABG HHb (Measured) -0.1 L (0.0-5.0) % ABG Methemoglobin 0.7 (0.0-3.0) % ABG O2 Capacity 15.5 L (16-24) mL/dL Cliff Test Yes Yes ABG Potassium 4.2 (3.6-5.2) mmol/L A-a O2 Difference 302.0 28.0 mm/Hg Hgb O2 Saturation 98.1 H (95.0-98.0) % Glucose 144 H (65-105) mg/dL Lactate 1.9 (0.7-2.1) mmol/L Vent Mode Nasal cannula Mechanical Rate FiO2 100.0 32.0 % Inspiratory BiPAP Expiratory BiPAP Crit Value Called To Md shira silva Crit Value Called By 37 [id number] Crit Value Read Back Y Y Blood Gas Notified Time 2149 1940 Sodium 142.0 (132-148) mmol/l Potassium (3.6-5.0) MMOL/L Chloride 105.0 (98-107) mmol/L Carbon Dioxide (22-30) mmol/L Anion Gap (10-20) BUN (7-17) mg/dl Creatinine (0.7-1.2) mg/dl Est GFR ( Amer) Est GFR (Non-Af Amer) POC Glucose (mg/dL) (65-110) mg/dL Random Glucose (65-105) mg/dL Lactic Acid 1.9 (0.7-2.1) mmol/L Calcium (8.4-10.2) mg/dL Total Bilirubin (0.2-1.3) mg/dl AST (14-36) U/L ALT (9-52) U/L Alkaline Phosphatase (38-126) U/L Troponin I (0.00-0.120) ng/mL NT-Pro-B Natriuret Pep (0-450) pg/ml Total Protein (6.3-8.2) G/DL Albumin (3.5-5.0) g/dL Globulin (2.2-3.9) gm/dL Albumin/Globulin Ratio (1.0-2.1) Arterial Blood Potassium 4.2 (3.6-5.2) mmol/L 12/27/18 12/27/18 12/27/18 Range/Units 19:30 19:30 19:22 WBC 5.9 D (4.8-10.8) K/uL RBC 3.60 L (3.80-5.20) Mil/uL Hgb 10.3 L (12.0-16.0) g/dL Hct 32.4 L (34.0-47.0) % MCV 89.9 (81.0-99.0) fl MCH 28.7 (27.0-31.0) pg MCHC 32.0 L (33.0-37.0) g/dL RDW 18.5 H (11.5-14.5) % Plt Count 419 H (130-400) K/uL MPV 7.4 (7.2-11.7) fl Neut % (Auto) 92.8 H (50.0-75.0) % Lymph % (Auto) 1.3 L (20.0-40.0) % Wagoner % (Auto) 5.7 (0.0-10.0) % Eos % (Auto) 0.0 (0.0-4.0) % Baso % (Auto) 0.2 (0.0-2.0) % Neut # (Auto) 5.4 (1.8-7.0) K/uL Lymph # (Auto) 0.1 L (1.0-4.3) K/uL Wagoner # (Auto) 0.3 (0.0-0.8) K/uL Eos # (Auto) 0.0 (0.0-0.7) K/uL Baso # (Auto) 0.0 (0.0-0.2) K/uL Neutrophils % (Manual) 89 H (42-75) % Band Neutrophils % 2 (0-2) % Lymphocytes % (Manual) 5 L (20-50) % Monocytes % (Manual) 4 (0-10) % Platelet Estimate Normal (NORMAL) Anisocytosis (manual) Slight pCO2 (35-45) mm/Hg pO2 (80-100) mm/Hg HCO3 (21-28) mmol/L ABG pH (7.35-7.45) ABG Total CO2 (22-28) mmol/L ABG O2 Saturation (95-98) % ABG O2 Content (15-23) ML/dL ABG Base Excess (-2.0-3.0) mmol/L ABG Hemoglobin (11.7-17.4) g/dL ABG Carboxyhemoglobin (0.5-1.5) % POC ABG HHb (Measured) (0.0-5.0) % ABG Methemoglobin (0.0-3.0) % ABG O2 Capacity (16-24) mL/dL Cliff Test ABG Potassium (3.6-5.2) mmol/L A-a O2 Difference mm/Hg Hgb O2 Saturation (95.0-98.0) % Glucose (65-105) mg/dL Lactate (0.7-2.1) mmol/L Vent Mode Mechanical Rate FiO2 % Inspiratory BiPAP Expiratory BiPAP Crit Value Called To Crit Value Called By Crit Value Read Back Blood Gas Notified Time Sodium 140 (132-148) mmol/l Potassium 4.2 (3.6-5.0) MMOL/L Chloride 98 (98-107) mmol/L Carbon Dioxide 35 H (22-30) mmol/L Anion Gap 11 (10-20) BUN 3 L (7-17) mg/dl Creatinine 0.3 L (0.7-1.2) mg/dl Est GFR ( Amer) > 60 Est GFR (Non-Af Amer) > 60 POC Glucose (mg/dL) 164 H (65-110) mg/dL Random Glucose 154 H (65-105) mg/dL Lactic Acid (0.7-2.1) mmol/L Calcium 9.6 (8.4-10.2) mg/dL Total Bilirubin 0.2 (0.2-1.3) mg/dl AST 76 H (14-36) U/L ALT 19 (9-52) U/L Alkaline Phosphatase 155 H (38-126) U/L Troponin I < 0.0120 (0.00-0.120) ng/mL NT-Pro-B Natriuret Pep 728 H (0-450) pg/ml Total Protein 7.7 (6.3-8.2) G/DL Albumin 3.7 (3.5-5.0) g/dL Globulin 3.9 (2.2-3.9) gm/dL Albumin/Globulin Ratio 0.9 L (1.0-2.1) Arterial Blood Potassium (3.6-5.2) mmol/L Laboratory Results - last 24 hr 12/27/18 12/27/18 12/27/18 19:22 19:30 19:30 WBC 5.9 D RBC 3.60 L Hgb 10.3 L Hct 32.4 L MCV 89.9 MCH 28.7 MCHC 32.0 L RDW 18.5 H Plt Count 419 H MPV 7.4 Neut % (Auto) 92.8 H Lymph % (Auto) 1.3 L Wagoner % (Auto) 5.7 Eos % (Auto) 0.0 Baso % (Auto) 0.2 Neut # (Auto) 5.4 Lymph # (Auto) 0.1 L Wagoner # (Auto) 0.3 Eos # (Auto) 0.0 Baso # (Auto) 0.0 Neutrophils % (Manual) 89 H Band Neutrophils % 2 Lymphocytes % (Manual) 5 L Monocytes % (Manual) 4 Platelet Estimate Normal Anisocytosis (manual) Slight pCO2 pO2 HCO3 ABG pH ABG Total CO2 ABG O2 Saturation ABG O2 Content ABG Base Excess ABG Hemoglobin ABG Carboxyhemoglobin POC ABG HHb (Measured) ABG Methemoglobin ABG O2 Capacity Cliff Test ABG Potassium A-a O2 Difference Hgb O2 Saturation Glucose Lactate Vent Mode Mechanical Rate FiO2 Inspiratory BiPAP Expiratory BiPAP Crit Value Called To Crit Value Called By Crit Value Read Back Blood Gas Notified Time Sodium 140 Potassium 4.2 Chloride 98 Carbon Dioxide 35 H Anion Gap 11 BUN 3 L Creatinine 0.3 L Est GFR ( Amer) > 60 Est GFR (Non-Af Amer) > 60 POC Glucose (mg/dL) 164 H Random Glucose 154 H Lactic Acid Calcium 9.6 Total Bilirubin 0.2 AST 76 H ALT 19 Alkaline Phosphatase 155 H Troponin I < 0.0120 NT-Pro-B Natriuret Pep 728 H Total Protein 7.7 Albumin 3.7 Globulin 3.9 Albumin/Globulin Ratio 0.9 L Arterial Blood Potassium 12/27/18 12/27/18 12/27/18 19:30 19:37 21:42 WBC RBC Hgb Hct MCV MCH MCHC RDW Plt Count MPV Neut % (Auto) Lymph % (Auto) Wagoner % (Auto) Eos % (Auto) Baso % (Auto) Neut # (Auto) Lymph # (Auto) Wagoner # (Auto) Eos # (Auto) Baso # (Auto) Neutrophils % (Manual) Band Neutrophils % Lymphocytes % (Manual) Monocytes % (Manual) Platelet Estimate Anisocytosis (manual) pCO2 111 H* 97 H* pO2 61 L 290 H HCO3 26.8 27.8 ABG pH 7.12 L* 7.16 L* ABG Total CO2 39.5 H 37.6 H ABG O2 Saturation 88.1 L 100.1 H ABG O2 Content 15.5 ABG Base Excess 3.0 3.6 H ABG Hemoglobin 10.7 L ABG Carboxyhemoglobin 1.3 POC ABG HHb (Measured) -0.1 L ABG Methemoglobin 0.7 ABG O2 Capacity 15.5 L Cliff Test Yes Yes ABG Potassium 4.2 A-a O2 Difference 28.0 302.0 Hgb O2 Saturation 98.1 H Glucose 144 H Lactate 1.9 Vent Mode Nasal cannula Mechanical Rate FiO2 32.0 100.0 Inspiratory BiPAP Expiratory BiPAP Crit Value Called To Dr nasir best Crit [place] 6038 23 Crit Value Read Back Y Y Blood Gas Notified Time 1940 2149 Sodium 142.0 Potassium Chloride 105.0 Carbon Dioxide Anion Gap BUN Creatinine Est GFR ( Amer) Est GFR (Non-Af Amer) POC Glucose (mg/dL) Random Glucose Lactic Acid 1.9 Calcium Total Bilirubin AST ALT Alkaline Phosphatase Troponin I NT-Pro-B Natriuret Pep Total Protein Albumin Globulin Albumin/Globulin Ratio Arterial Blood Potassium 4.2 12/28/18 12/28/18 12/28/18 05:20 05:20 06:15 WBC 4.9 RBC 3.61 L Hgb 10.4 L Hct 32.7 L MCV 90.5 MCH 28.7 MCHC 31.7 L RDW 18.5 H Plt Count 348 MPV Neut % (Auto) Lymph % (Auto) Wagoner % (Auto) Eos % (Auto) Baso % (Auto) Neut # (Auto) Lymph # (Auto) Wagoner # (Auto) Eos # (Auto) Baso # (Auto) Neutrophils % (Manual) Band Neutrophils % Lymphocytes % (Manual) Monocytes % (Manual) Platelet Estimate Anisocytosis (manual) pCO2 79 H* pO2 299 H HCO3 29.3 H ABG pH 7.25 L ABG Total CO2 37.0 H ABG O2 Saturation 100.3 H ABG O2 Content 14.6 L ABG Base Excess 5.6 H ABG Hemoglobin 10.0 L ABG Carboxyhemoglobin 1.1 POC ABG HHb (Measured) -0.3 L ABG Methemoglobin 0.9 ABG O2 Capacity 14.6 L Cliff Test Yes ABG Potassium A-a O2 Difference 315.0 Hgb O2 Saturation 98.3 H Glucose Lactate Vent Mode Bipap Mechanical Rate 14 FiO2 100.0 Inspiratory BiPAP 15 Expiratory BiPAP 8 Crit Value Called To Geeta borjas rn Crit Value Called By 60 Crit Value Read Back Y Blood Gas Notified Time 619 Sodium 142 Potassium 4.5 Chloride 100 Carbon Dioxide 33 H Anion Gap 14 BUN 3 L Creatinine 0.3 L Est GFR ( Amer) > 60 Est GFR (Non-Af Amer) > 60 POC Glucose (mg/dL) Random Glucose 96 Lactic Acid Calcium 9.4 Total Bilirubin 0.4 AST 110 H D ALT 21 Alkaline Phosphatase 142 H Troponin I NT-Pro-B Natriuret Pep Total Protein 7.5 Albumin 3.7 Globulin 3.9 Albumin/Globulin Ratio 0.9 L Arterial Blood Potassium Radiology Impressions: Radiology Impressions Chest CT 12/27/18 19:25 IMPRESSION: Unremarkable CT pulmonary angiogram. No pulmonary embolus. Widely disseminated tumor above and below the diaphragms described in greater detail above. Concordant results (preliminary interpretation) provided by [email or web address]. Procedure Completed: 19:53. Preliminary Report: Interpreted and electronically signed: 20:43. Final Interpretation: 11:19. December 28, 2018. Head CT 12/27/18 19:25 IMPRESSION: No acute intracranial abnormalities. No significant findings to account for the clinical presentation. Solitary metastatic lesion in the calvarium. No adjacent dural or intra-axial abnormality. Concordant results (preliminary interpretation) provided by [email or web address]. Procedure Completed: 19:45. Preliminary Report: Interpreted and electronically signed: 20:34. Final Interpretation: 10:10. December 28, 2018. Review of Systems - Cardiovascular Cardiovascular: absent: Chest Pain, Chest Pain at Rest, Chest Pain with Activity, Claudication, Diaphoresis, Pain Radiating to Arm/Neck/Jaw - Respiratory Respiratory: Cough, Dyspnea, Chest Congestion. absent: Hemoptysis Critical Care Progress Note - Extremities/Vascular Does the Patient have a Central Venous Catheter?: No Does the Patient have a Arevalo Catheter?: No Does the Patient need a Arevalo Catheter?: No - Nutrition Nutrition: Nutrition Category Date Time Status Regular Diet [DIET] Diets 12/24/18 Dinner Active Assessment/Plan (1) Acute respiratory failure with hypercapnia Current Visit: Yes Status: Acute Priority: High (2) Breast carcinoma metastatic to multiple sites Current Visit: Yes Status: Acute Priority: High (3) Infiltrate of lung present on computed tomography Current Visit: Yes Status: Acute Priority: High (4) Pneumothorax on right Current Visit: Yes Status: Acute Priority: High (5) Bilateral pleural effusion Current Visit: Yes Status: Acute Priority: High - Assessment and Plan (Free Text) Assessment: Continue with ICU care for hemodynamic and respiratory monitoring Keep the patient on the BiPAP with the same setting, repeat ABG Wean off FiO2 Continue with broad-spectrum antibiotic coverage with IV Vanco and Zosyn PRN diuresis Being controlled bronchodilator nebulizer treatment as needed Continues tamoxifen for breast cancer
[2018-12-28 22:39] LABS: ABG ALLEN TEST YES; ARTERIAL BLOOD GAS HCO3 30.2 mmol/L (21-28); ARTERIAL BLOOD GAS HEMOGLOBIN 10.2 g/dL (11.7-17.4); ARTERIAL BLOOD GAS O2 CAPACITY 14.2 mL/dL (16-24); ARTERIAL BLOOD GAS O2 SAT 98.9 % (95-98); ARTERIAL BLOOD GAS PCO2 80 mm/Hg (35-45); ARTERIAL BLOOD GAS PH 7.26 (7.35-7.45); ARTERIAL BLOOD GAS PO2 98 mm/Hg (80-100); ARTERIAL BLOOD GAS TCO2 38.4 mmol/L (22-28)
[2018-12-29] MEDS: Piperacillin/Tazobact 3.375 GM in Sodium Chloride 0.9% 100 ML IVPB SCH ×4 (04:01→22:22)
[2018-12-29 05:51] LABS: HEMOGLOBIN 9.9 g/dL (12.0-16.0); LYMPH # 0.1 K/uL (1.0-4.3); LYMPH % 1.2 % (20.0-40.0); MEAN CELL VOLUME 90.6 fl (81.0-99.0); MEAN PLATELET VOLUME 7.8 fl (7.2-11.7); MONO # 0.8 K/uL (0.0-0.8); MONO % 11.2 % (0.0-10.0); NEUT # 6.4 K/uL (1.8-7.0); NEUT % 87.6 % (50.0-75.0); NRBC % 0.2 % (0.0-0.0); RBC 3.43 Mil/uL (3.80-5.20); RED CELL DISTRIBUTION WIDTH 18.2 % (11.5-14.5); WHITE BLOOD COUNT 7.3 K/uL (4.8-10.8)
[2018-12-29 06:06] LABS: ALBUMIN 3.6 g/dL (3.5-5.0); ALT/SGPT 23 U/L (9-52); AST/SGOT 150 U/L (14-36); BLOOD UREA NITROGEN 10 mg/dl (7-17); CALCIUM 9.9 mg/dL (8.4-10.2); GFR NON-AFRICAN AMERICAN > 60
[2018-12-29 06:08] LABS: ABG ALLEN TEST YES; ARTERIAL BLOOD GAS HCO3 29.1 mmol/L (21-28); ARTERIAL BLOOD GAS HEMOGLOBIN 10.7 g/dL (11.7-17.4); ARTERIAL BLOOD GAS O2 CAPACITY 14.7 mL/dL (16-24); ARTERIAL BLOOD GAS O2 CONTENT 14.6 ML/dL (15-23); ARTERIAL BLOOD GAS PCO2 68 mm/Hg (35-45); ARTERIAL BLOOD GAS PO2 104 mm/Hg (80-100); ARTERIAL BLOOD GAS TCO2 35.6 mmol/L (22-28)
--- NOTE | 2018-12-29 06:37 | CP.PCM.PN ---
Subjective - Date & Time of Evaluation Date of Evaluation: 12/29/18 Time of Evaluation: 06:00 - Subjective Subjective: Patient seen and examined this morning with Dr. Mckeon. Patient denies any pain but + tachycardic and tachypneic on BIPAP Objective - Vital Signs/Intake and Output Vital Signs (last 24 hours): Temp Pulse Resp BP Pulse Ox 99.3 F 109 H 37 H 104/70 97 12/29/18 06:00 12/29/18 06:00 12/29/18 06:00 12/29/18 06:00 12/29/18 06:00 Intake and Output: 12/28/18 12/29/18 18:59 06:59 Intake Total 1250 650 Output Total 950 Balance 300 650 - Medications Medications: Current Medications Acetaminophen (Tylenol 325mg Tab) 650 mg PO Q6 PRN PRN Reason: Pain, Mild (1-3) Last Admin: 12/25/18 21:37 Dose: 650 mg Acetaminophen (Tylenol 325mg Tab) 650 mg PO Q6 PRN PRN Reason: Fever >100.4 F Diphenhydramine HCl (Benadryl) 25 mg PO HS PRN PRN Reason: Insomnia Last Admin: 12/25/18 21:36 Dose: 25 mg Piperacillin Sod/Tazobactam (Sod 3.375 gm/ Sodium Chloride) 100 mls @ 100 mls/hr IVPB Q6 ESTEBAN; Protocol Last Admin: 12/29/18 04:01 Dose: 100 mls/hr Vancomycin HCl 1 gm/ Sodium (Chloride) 250 mls @ 166.667 mls/hr IVPB Q12 ESTEBAN; Protocol Last Admin: 12/28/18 21:08 Dose: 166.667 mls/hr Ketorolac Tromethamine (Toradol) 15 mg IVP Q6 PRN PRN Reason: Pain, moderate (4-7) Last Admin: 12/26/18 22:21 Dose: 15 mg Lactobacillus Acidophilus (Bacid Acidophilus) 1 cap PO BID ESTEBAN Last Admin: 12/28/18 16:53 Dose: 1 cap Levalbuterol HCl (Xopenex) 0.63 mg INH PRN PRN PRN Reason: Shortness of Breath Last Admin: 12/24/18 16:04 Dose: 0.63 mg Morphine Sulfate (Morphine) 2 mg IVP Q6 PRN PRN Reason: Pain, severe (8-10) Last Admin: 12/28/18 22:36 Dose: 2 mg Ondansetron HCl (Zofran Inj) 4 mg IVP Q6 PRN PRN Reason: Nausea/Vomiting Sodium Hypochlorite (Dakins Solution 0.125%) 1 appl TOP DAILY [facility] Last Admin: 12/28/18 12:30 Dose: 1 appl Tamoxifen Citrate (Nolvadex) 20 mg PO DAILY [facility] Last Admin: 12/28/18 11:34 Dose: 20 mg - Labs Labs: 12/29/18 05:40 12/29/18 05:40 PT 13.9 Seconds (9.8-13.1) H 12/23/18 12:50 INR 1.2 12/23/18 12:50 APTT 36.8 Seconds (25.6-37.1) 12/23/18 12:50 - Constitutional Appears: In Acute Distress (tachycardic and tachypneic), Cachectic, Chronically Ill - Head Exam Head Exam: NORMAL INSPECTION - Eye Exam Eye Exam: Normal appearance - ENT Exam ENT Exam: Mucous Membranes Moist - Neck Exam Neck Exam: Normal Inspection - Respiratory Exam Respiratory Exam: Accessory Muscle Use, Decreased Breath Sounds, Prolonged Expiratory Phase, Wheezes. absent: Chest Wall Tenderness, NORMAL BREATHING PATTERN - Cardiovascular Exam Cardiovascular Exam: Tachycardia, REGULAR RHYTHM, +S1, +S2 - GI/Abdominal Exam GI & Abdominal Exam: Soft, Normal Bowel Sounds. absent: Tenderness - Extremities Exam Extremities Exam: Normal Inspection - Back Exam Back Exam: absent: CVA tenderness (L), CVA tenderness (R) - Neurological Exam Neurological Exam: Alert, Awake, CN II-XII Intact, Oriented x3 - Psychiatric Exam Psychiatric exam: Normal Affect - Skin Skin Exam: Normal Color Assessment and Plan - Assessment and Plan (Free Text) Assessment: A/P: 43 y/o F with PMH of stage IV breast cancer with mets diagnosed in 2016 currently on radiation, multiple pleural effusion s/p thoracentesis and chronic SOB on home oxygen admitted to [facility] for evaluation and treatment of pneumonia/pneumothorax. Patient was admitted to ICU 12/27 for respiratory distress, DNI/DNR, was placed on bipap. Worsening SOB/Respiratory distress - Stable R pneumothorax/Plural effusion/infiltrates, + lungs mets & consolidation - Consult Surgery/Pulminary/HemOnc, recommendations appreciated - C/w IV Abx as ordered, Zosyn and Vanco - C/w Xopenox as ordered - C/w IVF and NC O2 - C/w daily CXR and ABGs (Reviewed from today) - Currently on BIPAP and Tachypneic/ (DNI/DNR)/ BIPAP settings as ordered - official CT and head CT reviewed from yesterday Breast Ca. Stage IV with mets to bones and Lungs - Consult HemOnc, Dr. Ornelas - Continue management as per HemOnc, Tamoxifen - Palliative care Chronic pain - C/w pain management as ordered DVT PPX - Lovenox SC daily Case discussed with Dr. Mckeon
--- NOTE | 2018-12-29 08:04 | RAD ---
Date of service: 12/29/2018 PROCEDURE: CHEST RADIOGRAPH, 1 VIEW HISTORY: Hypoxia COMPARISON: 12/27/2018 chest x-ray. Angio chest PE protocol report 12/27/2018 noted. FINDINGS: LUNGS: Diffuse and extensive variably sized bilateral pulmonary nodules compatible with extensive pulmonary metastases. The prior confluent opacity/consolidation left upper lobe less pronounced overlying respiratory tubing here present PLEURA: No pneumothorax appreciated. Small bilateral pleural effusions-similar. CARDIOVASCULAR: No aortic atherosclerotic calcification present. Assessment heart size problematic marked cardiomegaly appreciated. OSSEOUS STRUCTURES: Known osseous metastases difficult to assess this exam. VISUALIZED UPPER ABDOMEN: Normal. OTHER FINDINGS: Right axillary/lateral right chest wall masslike density with a probable large ulceration-correlate clinically IMPRESSION: Possible trace improved aeration given the interval decreased density of the confluent opacity prior consolidative appearance in the left upper lobe. Residual here still persists. Extensive pulmonary xoyynzvbek-tqwhivd-liiattgol Small bilateral pleural wzffkoqcb-cnxljoo-elsxkzwez Large ulcerated soft tissue mass lateral right chest wall/right msvdyj-orhlwyv-floxllyqv..
[2018-12-29] MEDS: Lactobacillus Acidophilus 500 MU Cap PO SCH ×3 (08:28→16:13)
--- NOTE | 2018-12-29 13:18 | CP.CCUPN ---
CCU Subjective - Physician Review Subjective (Free Text): Awake and appears uncomfortable on BiPAP, sister at bedside states mask has not been fitting properly since BiPAP initiation and patient wishes to drink water. SPO2 at 99% on 60% OXYGEN via BiPAP, average TV observed only 280ml on IPAP/ EPAP of 18/8. Temps mostly 98-99F, no new T spikes; SBP 120s, HR 100s; fluid balance approx. 0.85 Liter negative last 24H. ROS: No other pertinent negs or positives on 10+ system review obtainable. PMSFH: All other Nursing and physician documentation reviewed to date; no new pertinent info noted relevant to current medical problems. EXAM- HEENT: no icterus, no gaze preference, pupils equal and reactive, no nyst agmus. Tongue dry. NECK: scattered rhonchi bilaterally, no wheezes audible bilaterally. HEART: regular, distant, tachy S1S2, no rubs or murmurs noted ABD: soft, no distention or tympany, no guarding or focal tenderness; BS hypoactive EXT: no leg edema, no cyanoisis, calf tenderness or palpable cords, distal pulses intact and symmetrical. NEURO: no gross focal motor deficits. SKIN: no rashes, warm and dry LABS: 7.30/68/104 WBC= 7.3 HGB= 9.9 PLTs= 314 K Na= 144 K= 3.6 CL= 100 HCO3= 36 BUN/Cr= 10/0.4 BS= 91 LFTs yesterday: TBili= 7.2 AST / ALT = 150/23 AP= 153 CXR: scattered, and diffuse multiple mets lesions bilaterally (my interp). Trop #1 negative IMPRESSION / MAJOR PROBLEMS NOW: 1. Terminal Metastatic Breast cancer Disease 2. Acute on Chronic Hypercapneic Hypoxemic Resp Failure 2 Lung Mets Disease 3. Chronic Disease Anemia PLAN: 1. and sister aware of patients imminent demise. BiPAP switched to HFNC for patient comfort, best observed SPO2 98% on 100% oxygen at 40 LPM flow. Discuss with PMD and all consultants, focus of care should now be on comfort. 2. Suggest Hospice and Pall Care evals. 3. Advance Morphine to continuous drip to ensure patient comfort. 4. May stop empiric antibiotics with multiple normal Procalcitonin levels five days ago. 5. No longer requires ICU level of care.
--- NOTE | 2018-12-29 13:22 | CP.PCM.PN ---
Subjective - Date & Time of Evaluation Date of Evaluation: 12/29/18 Time of Evaluation: 12:00 - Subjective Subjective: F/U Pulmonary consult. mild respiratory distress on high flow O2 Objective - Vital Signs/Intake and Output Vital Signs (last 24 hours): Temp Pulse Resp BP Pulse Ox 98.6 F 106 H 43 H 123/69 99 12/29/18 12:00 12/29/18 13:00 12/29/18 13:00 12/29/18 13:00 12/29/18 13:00 Intake and Output: 12/29/18 12/29/18 06:59 18:59 Intake Total 750 Output Total 650 Balance 100 - Medications Medications: Current Medications Acetaminophen (Tylenol 325mg Tab) 650 mg PO Q6 PRN PRN Reason: Pain, Mild (1-3) Last Admin: 12/25/18 21:37 Dose: 650 mg Acetaminophen (Tylenol 325mg Tab) 650 mg PO Q6 PRN PRN Reason: Fever >100.4 F Diphenhydramine HCl (Benadryl) 25 mg PO HS PRN PRN Reason: Insomnia Last Admin: 12/25/18 21:36 Dose: 25 mg Piperacillin Sod/Tazobactam (Sod 3.375 gm/ Sodium Chloride) 100 mls @ 100 mls/hr IVPB Q6 ESTEBAN; Protocol Last Admin: 12/29/18 10:10 Dose: 100 mls/hr Vancomycin HCl 1 gm/ Sodium (Chloride) 250 mls @ 166.667 mls/hr IVPB Q12 ESTEBAN; Protocol Last Admin: 12/29/18 08:31 Dose: 166.667 mls/hr Ketorolac Tromethamine (Toradol) 15 mg IVP Q6 PRN PRN Reason: Pain, moderate (4-7) Last Admin: 12/26/18 22:21 Dose: 15 mg Lactobacillus Acidophilus (Bacid Acidophilus) 1 cap PO BID ESTEBAN Last Admin: 12/29/18 08:28 Dose: 1 cap Levalbuterol HCl (Xopenex) 0.63 mg INH PRN PRN PRN Reason: Shortness of Breath Last Admin: 12/24/18 16:04 Dose: 0.63 mg Morphine Sulfate (Morphine) 2 mg IVP Q6 PRN PRN Reason: Pain, severe (8-10) Last Admin: 12/28/18 22:36 Dose: 2 mg Ondansetron HCl (Zofran Inj) 4 mg IVP Q6 PRN PRN Reason: Nausea/Vomiting Sodium Hypochlorite (Dakins Solution 0.125%) 1 appl TOP DAILY [facility] Last Admin: 12/29/18 10:23 Dose: 1 appl Tamoxifen Citrate (Nolvadex) 20 mg PO DAILY [facility] Last Admin: 12/29/18 08:29 Dose: 20 mg - Labs Labs: 12/29/18 05:40 12/29/18 05:40 PT 13.9 Seconds (9.8-13.1) H 12/23/18 12:50 INR 1.2 12/23/18 12:50 APTT 36.8 Seconds (25.6-37.1) 12/23/18 12:50 - Constitutional Appears: Cachectic, Chronically Ill - Head Exam Head Exam: NORMAL INSPECTION - Eye Exam Eye Exam: PERRL - ENT Exam ENT Exam: Normal Exam - Neck Exam Neck Exam: Normal Inspection - Respiratory Exam Respiratory Exam: Decreased Breath Sounds (b/l), Rhonchi (scattered), Respiratory Distress - Cardiovascular Exam Cardiovascular Exam: Tachycardia - GI/Abdominal Exam GI & Abdominal Exam: Soft, Hypoactive Bowel Sounds - Extremities Exam Additional comments: Edema BLE - Back Exam Back Exam: NORMAL INSPECTION - Neurological Exam Neurological Exam: Awake, Oriented x3 Additional comments: alert, No gross focal motor deficit. - Skin Skin Exam: Warm Assessment and Plan (1) Infiltrate of lung present on computed tomography Status: Acute (2) Metastasis to lung Status: Acute (3) Status post thoracentesis Status: Chronic (4) Bilateral pleural effusion Status: Acute (5) Breast carcinoma metastatic to multiple sites Status: Acute (6) Pneumothorax on right Status: Acute - Assessment and Plan (Free Text) Plan: CXR extensive pulmonary metastasis, RADHA consolidation decreased, prognosis very poor, discussed with Pt's She is terminal Ca stage and He agrees, continue High flow O2, Morphine and rest of Tx
[2018-12-29] MEDS ORDERED: DiphenhydrAMINE 50 mg/ml Inj IVP PRN (23:10)
[2018-12-30] MEDS ORDERED: DiphenhydrAMINE 50 mg/ml Inj IVP STA (01:54)
[2018-12-30] MEDS: Piperacillin/Tazobact 3.375 GM in Sodium Chloride 0.9% 100 ML IVPB SCH (04:00)
[2018-12-30 05:17] LABS: BASO % 0.1 % (0.0-2.0); HEMOGLOBIN 10.1 g/dL (12.0-16.0); LYMPH # 0.1 K/uL (1.0-4.3); LYMPH % 1.1 % (20.0-40.0); MEAN CELL VOLUME 91.2 fl (81.0-99.0); MEAN CORPUSCULAR HEMOGLOBIN 28.9 pg (27.0-31.0); MEAN CORPUSCULAR HGB CONC 31.7 g/dL (33.0-37.0); MEAN PLATELET VOLUME 7.5 fl (7.2-11.7); MONO # 0.6 K/uL (0.0-0.8); MONO % 9.1 % (0.0-10.0); NEUT % 89.7 % (50.0-75.0); NRBC % 0.1 % (0.0-0.0); RBC 3.51 Mil/uL (3.80-5.20); RED CELL DISTRIBUTION WIDTH 18.4 % (11.5-14.5); WHITE BLOOD COUNT 6.6 K/uL (4.8-10.8)
[2018-12-30 05:18] LABS: ALBUMIN 3.5 g/dL (3.5-5.0); ALT/SGPT 24 U/L (9-52); AST/SGOT 80 U/L (14-36); BLOOD UREA NITROGEN 15 mg/dl (7-17); CALCIUM 10.2 mg/dL (8.4-10.2); GFR NON-AFRICAN AMERICAN > 60
[2018-12-30 05:56] LABS: ABG ALLEN TEST YES; ARTERIAL BLOOD GAS HCO3 28.8 mmol/L (21-28); ARTERIAL BLOOD GAS HEMOGLOBIN 10.5 g/dL (11.7-17.4); ARTERIAL BLOOD GAS O2 CAPACITY 14.4 mL/dL (16-24); ARTERIAL BLOOD GAS O2 CONTENT 14.2 ML/dL (15-23); ARTERIAL BLOOD GAS O2 SAT 98.3 % (95-98); ARTERIAL BLOOD GAS PCO2 71 mm/Hg (35-45); ARTERIAL BLOOD GAS PH 7.28 (7.35-7.45); ARTERIAL BLOOD GAS PO2 83 mm/Hg (80-100); ARTERIAL BLOOD GAS TCO2 35.6 mmol/L (22-28)
[2018-12-30] MEDS ORDERED: Potassium CL 10mEq/100ml 100 ML IVPB SCH (07:00)
--- NOTE | 2018-12-30 07:46 | CP.PCM.PN ---
Subjective - Date & Time of Evaluation Date of Evaluation: 12/30/18 Time of Evaluation: 07:46 - Subjective Subjective: Patient seen and examined this morning with Dr. Mckeon on ICU family at bedside, patient poor historian today on BIPAP, somnolent and rest less, noted tachypneic VS: afebrile, BP 102/80, HR 110, O2 sat 96% Objective - Vital Signs/Intake and Output Vital Signs (last 24 hours): Temp Pulse Resp BP Pulse Ox 100.2 F H 109 H 37 H 118/72 97 12/30/18 04:00 12/30/18 06:00 12/30/18 06:00 12/30/18 06:00 12/30/18 06:00 Intake and Output: 12/30/18 12/30/18 06:59 18:59 Intake Total 450 Balance 450 - Medications Medications: Current Medications Acetaminophen (Tylenol 325mg Tab) 650 mg PO Q6 PRN PRN Reason: Pain, Mild (1-3) Last Admin: 12/25/18 21:37 Dose: 650 mg Acetaminophen (Tylenol 325mg Tab) 650 mg PO Q6 PRN PRN Reason: Fever >100.4 F Diphenhydramine HCl (Benadryl) 25 mg IVP HS PRN PRN Reason: Agitation Last Admin: 12/29/18 23:46 Dose: 25 mg Piperacillin Sod/Tazobactam (Sod 3.375 gm/ Sodium Chloride) 100 mls @ 100 mls/hr IVPB Q6 ESTEBAN; Protocol Last Admin: 12/30/18 04:00 Dose: 100 mls/hr Vancomycin HCl 1 gm/ Sodium (Chloride) 250 mls @ 166.667 mls/hr IVPB Q12 ESTEBAN; Protocol Last Admin: 12/29/18 21:10 Dose: 166.667 mls/hr Potassium Chloride (Potassium Chloride 10 Meq/100 Ml) 100 mls @ 100 mls/hr IVPB Q1 ESTEBAN Stop: 12/30/18 10:59 Ketorolac Tromethamine (Toradol) 15 mg IVP Q6 PRN PRN Reason: Pain, moderate (4-7) Last Admin: 12/26/18 22:21 Dose: 15 mg Lactobacillus Acidophilus (Bacid Acidophilus) 1 cap PO BID ESTEBAN Last Admin: 12/29/18 16:13 Dose: Not Given Levalbuterol HCl (Xopenex) 0.63 mg INH PRN PRN PRN Reason: Shortness of Breath Last Admin: 12/24/18 16:04 Dose: 0.63 mg Morphine Sulfate (Morphine) 2 mg IVP Q6 PRN PRN Reason: Pain, severe (8-10) Last Admin: 12/28/18 22:36 Dose: 2 mg Ondansetron HCl (Zofran Inj) 4 mg IVP Q6 PRN PRN Reason: Nausea/Vomiting Sodium Hypochlorite (Dakins Solution 0.125%) 1 appl TOP DAILY [facility] Last Admin: 12/29/18 10:23 Dose: 1 appl Tamoxifen Citrate (Nolvadex) 20 mg PO DAILY [facility] Last Admin: 12/29/18 08:29 Dose: 20 mg - Labs Labs: 12/30/18 04:53 12/30/18 04:53 PT 13.9 Seconds (9.8-13.1) H 12/23/18 12:50 INR 1.2 12/23/18 12:50 APTT 36.8 Seconds (25.6-37.1) 12/23/18 12:50 - Constitutional Appears: Unkempt, Chronically Ill - Head Exam Head Exam: NORMAL INSPECTION - Eye Exam Eye Exam: Normal appearance - ENT Exam ENT Exam: Mucous Membranes Moist - Neck Exam Neck Exam: Full ROM, Normal Inspection - Respiratory Exam Respiratory Exam: Accessory Muscle Use, Decreased Breath Sounds, Prolonged Expiratory Phase, Wheezes. absent: Chest Wall Tenderness - Cardiovascular Exam Cardiovascular Exam: Tachycardia, REGULAR RHYTHM, +S1, +S2 - GI/Abdominal Exam GI & Abdominal Exam: Soft, Normal Bowel Sounds. absent: Distended, Tenderness - Extremities Exam Extremities Exam: absent: Calf Tenderness, Pedal Edema - Neurological Exam Neurological Exam: Awake, CN II-XII Intact, Oriented x3 - Skin Skin Exam: Dry, Warm Assessment and Plan - Assessment and Plan (Free Text) Assessment: 43 y/o F with PMH of stage IV breast cancer with mets diagnosed in 2016 currently on radiation, multiple pleural effusion s/p thoracentesis and chronic SOB on home oxygen admitted to [facility] for evaluation and treatment of pneumonia/pneumothorax. Patient was admitted to ICU 12/27 for respiratory distress, DNI/DNR, was placed on bipap. Plan: Acute on Chronic Hypercapneic Hypoxemic Resp Failure 2/2 Lung Mets Disease - Stable R pneumothorax/Plural effusion/infiltrates, + lungs mets & consolidation - Consult Surgery/Pulmonary/HemOnc, recommendations appreciated - C/w IV Abx as ordered, Zosyn and Vanco - C/w Xopenox as ordered - C/w IVF and NC O2 - C/w daily CXR and ABGs (Reviewed from today) - Currently on BIPAP and Tachypneic/ (DNI/DNR)/ BIPAP settings as ordered - official CT and head CT reviewed from yesterday - Hospice/Palliative care consulted Breast Ca. Stage IV with mets to bones and Lungs Anemia of chronic disease - Consult HemOnc, Dr. Ornelas - Continue management as per HemOnc, Tamoxifen - Palliative care Chronic pain - C/w pain management as ordered DVT PPX - Lovenox SC daily Case discussed with Dr. Mckeon
[2018-12-30] MEDS: Lactobacillus Acidophilus 500 MU Cap PO SCH (08:36)
--- NOTE | 2018-12-30 08:50 | PCM.PCON ---
History of Present Illness - History of Present Illness History of Present Illness: Patient is a 43 year old female who presented to the ED on 12/23/18 for worsening SOB, non productive cough, neck pain, Upper back Pain, and generalized weakness. She was recently admitted for pleural effusion and had a thoracentesis during the previous admission. Patient currently in the ICU. Review of Systems - Review of Systems Systems not reviewed;Unavailable: Respiratory Distress Physical Exam - Head Exam Head Exam: ATRAUMATIC, NORMAL INSPECTION, NORMOCEPHALIC - ENT Exam ENT Exam: Mucous Membranes Dry - Neck Exam Neck exam: Positive for: Normal Inspection - Respiratory Exam Respiratory Exam: Decreased Breath Sounds - Cardiovascular Exam Cardiovascular Exam: Tachycardia - Neurological Exam Additional comments: not alert at this time. Does not respond to voice - Psychiatric Exam Psychiatric exam: Anxious - Skin Skin Exam: Dry, Pallor, Warm Palliative Care Assessment - Modified MRC Dyspnea Scale Modified MRC Dyspnea Scale: Too breathless to leave the house,or breathless dressing or undressing Grade: 5 - Pain Scale Pain Score: 5 Pain Scale Used: FLACC - Pain Description Pain Behavior: Facial Grimacing Aggravating Factors: None Alleviating Factors/Management Techniques: Medication - José Miguel Scale Sensory Perception: No Impairment Moisture: Occasionally Moist Activity: Bedfast Mobility: Very Limited Nutrition: Very Poor Friction & Shear: Potential Problem Total Score - Skin Risk Assessment: 13 Palliative Care - Goals Goal(s) of care: Discussed with patient's Sravan. Patient's states that he is aware of severity of patient's illness and does not want her to suffer. He would like her symptoms controlled and wants her to be pain free. He is agreeable to hospice evaluation. Treatment Goal(s): Alleviate symptoms End of life care discussed: Yes End of life discussion: End of life discussion held with patient's Sravan. Hospice conversation was held and patient verbalized understanding and agreed to hospice eval. Patient is decision maker - Plan Interdisciplinary involved: Nurse, cut off worker, Physician Discharge planning: Hospice Assessment & Plan - Assessment and Plan (Free Text) Assessment: DNR/DNI I reviewed medical records, diagnostic studies, and examined the patient in bed. Patient interviewed via telephone Palliative Performance Scale 20% Impression Metastatic Breast Ca Respiratory Distress Pain Decrease Mobility Suggestion Hospice Eval today Continue Morphine Drip reposition q2h Palliative Care will remain on board as needed Time Spent with patient 55 min
[2018-12-30] MEDS ORDERED: Morphine 100 MG in Sodium Chloride 0.9% 96 ML IV SCH (09:00)
--- NOTE | 2018-12-30 11:20 | RAD ---
Date of service: 12/30/2018 PROCEDURE: CHEST RADIOGRAPH, 1 VIEW HISTORY: BIPAP/Pneumonia COMPARISON: Multiple serial examinations preceding the most recent study: December 29, 2018. FINDINGS: LUNGS: Stable pulmonary nodules, masses and infiltrates. PLEURA: Small bilateral pleural effusions. CARDIOVASCULAR: No aortic atherosclerotic calcification present. Normal. OSSEOUS STRUCTURES: No significant abnormalities. VISUALIZED UPPER ABDOMEN: Normal. OTHER FINDINGS: None. IMPRESSION: No significant interval change compared to the prior examination(s).
--- NOTE | 2018-12-30 13:15 | CP.PCM.PN ---
Subjective - Date & Time of Evaluation Date of Evaluation: 12/30/18 Time of Evaluation: 11:10 - Subjective Subjective: Pt on respiratory distress on high flow-O2, lethargic Objective - Vital Signs/Intake and Output Vital Signs (last 24 hours): Temp Pulse Resp BP Pulse Ox 100.3 F H 116 H 10 L 73/43 L 85 L 12/30/18 12:00 12/30/18 12:00 12/30/18 12:00 12/30/18 12:00 12/30/18 12:00 Intake and Output: 12/30/18 12/30/18 06:59 18:59 Intake Total 450 Balance 450 - Medications Medications: Current Medications Acetaminophen (Tylenol 325mg Tab) 650 mg PO Q6 PRN PRN Reason: Pain, Mild (1-3) Last Admin: 12/25/18 21:37 Dose: 650 mg Acetaminophen (Tylenol 325mg Tab) 650 mg PO Q6 PRN PRN Reason: Fever >100.4 F Diphenhydramine HCl (Benadryl) 25 mg IVP HS PRN PRN Reason: Agitation Last Admin: 12/29/18 23:46 Dose: 25 mg Piperacillin Sod/Tazobactam (Sod 3.375 gm/ Sodium Chloride) 100 mls @ 100 mls/hr IVPB Q6 ESTEBAN; Protocol Last Admin: 12/30/18 04:00 Dose: 100 mls/hr Vancomycin HCl 1 gm/ Sodium (Chloride) 250 mls @ 166.667 mls/hr IVPB Q12 ESTEBAN; Protocol Last Admin: 12/29/18 21:10 Dose: 166.667 mls/hr Morphine Sulfate 100 mg/ (Sodium Chloride) 100 mls @ 2 mls/hr IV .Q24H ESTEBAN; Protocol Last Admin: 12/30/18 09:42 Dose: 2 mg/hr, 2 mls/hr Ketorolac Tromethamine (Toradol) 15 mg IVP Q6 PRN PRN Reason: Pain, moderate (4-7) Last Admin: 12/26/18 22:21 Dose: 15 mg Lactobacillus Acidophilus (Bacid Acidophilus) 1 cap PO BID ESTEBAN Last Admin: 12/30/18 08:36 Dose: Not Given Levalbuterol HCl (Xopenex) 0.63 mg INH PRN PRN PRN Reason: Shortness of Breath Last Admin: 12/24/18 16:04 Dose: 0.63 mg Morphine Sulfate (Morphine) 2 mg IVP Q6 PRN PRN Reason: Pain, severe (8-10) Last Admin: 12/28/18 22:36 Dose: 2 mg Ondansetron HCl (Zofran Inj) 4 mg IVP Q6 PRN PRN Reason: Nausea/Vomiting Sodium Hypochlorite (Dakins Solution 0.125%) 1 appl TOP DAILY [facility] Last Admin: 12/29/18 10:23 Dose: 1 appl Tamoxifen Citrate (Nolvadex) 20 mg PO DAILY [facility] Last Admin: 12/30/18 08:41 Dose: Not Given - Labs Labs: 12/30/18 04:53 12/30/18 04:53 PT 13.9 Seconds (9.8-13.1) H 12/23/18 12:50 INR 1.2 12/23/18 12:50 APTT 36.8 Seconds (25.6-37.1) 12/23/18 12:50 - Constitutional Appears: In Acute Distress, Chronically Ill - Head Exam Head Exam: NORMAL INSPECTION - Eye Exam Additional comments: Sluggish reaction - ENT Exam ENT Exam: Normal Exam - Neck Exam Neck Exam: Normal Inspection - Respiratory Exam Respiratory Exam: Decreased Breath Sounds (b/l), Rhonchi, Respiratory Distress - Cardiovascular Exam Cardiovascular Exam: Tachycardia - GI/Abdominal Exam GI & Abdominal Exam: Soft - Extremities Exam Additional comments: Edema BLE - Back Exam Back Exam: NORMAL INSPECTION - Neurological Exam Additional comments: Lethargic. - Skin Skin Exam: Warm Assessment and Plan (1) Infiltrate of lung present on computed tomography Status: Acute (2) Metastasis to lung Status: Acute (3) Status post thoracentesis Status: Chronic (4) Bilateral pleural effusion Status: Acute (5) Breast carcinoma metastatic to multiple sites Status: Acute (6) Pneumothorax on right Status: Acute - Assessment and Plan (Free Text) Plan: Prognosis very poor, for hospice today
[2018-12-30 16:12] VITALS: BP 47/23; PULSE 86; RESP 12; TEMP 99.9; O2SAT 77
--- NOTE | 2018-12-30 19:25 | CP.PCM.PRO ---
Pronouncement of Note - Clinical Findings Physical Exam: No Response Verbal/Painful Stimuli, Absent Peripheral Puls es{Carotid & Femoral}, Absent Heart & Breath Sounds, No Pupillary Light Reflex, No Corneal Reflex, Pupils Fixed & Dilated, Absence of Vital Signs - Pronouncement Time Time of Pronouncement of : 18:29 - Notifications Pronouncement Notifications: Family Notified, Atending Notified Armhole Presser Notified: No - Autopsy Autopsy Requested: No - [place] [id number]
--- NOTE | 2018-12-30 20:35 | CP.PCM.PN ---
Subjective - Date & Time of Evaluation Date of Evaluation: 12/27/18 Time of Evaluation: 19:00 - Subjective Subjective: Transferred to ICU Objective - Vital Signs/Intake and Output Vital Signs (last 24 hours): Temp Pulse Resp BP Pulse Ox 99.9 F H 86 12 47/23 L 77 L 12/30/18 16:00 12/30/18 16:00 12/30/18 16:00 12/30/18 16:00 12/30/18 16:00 - Medications Medications: Current Medications Acetaminophen (Tylenol 650 Mg Supp) 650 mg AR Q6 PRN PRN Reason: Fever >100.4 F Morphine Sulfate 100 mg/ (Sodium Chloride) 100 mls @ 2 mls/hr IV .Q24H ESTEBAN; Protocol Last Admin: 12/30/18 09:42 Dose: 2 mg/hr, 2 mls/hr Lorazepam (Ativan) 1 mg IVP Q6 PRN PRN Reason: Agitation Ondansetron HCl (Zofran Inj) 4 mg IVP Q6 PRN PRN Reason: Nausea/Vomiting Scopolamine (Transderm-Scop) 1 patch TD Q3D ESTEBAN - Labs Labs: 12/30/18 04:53 12/30/18 04:53 PT 13.9 Seconds (9.8-13.1) H 12/23/18 12:50 INR 1.2 12/23/18 12:50 APTT 36.8 Seconds (25.6-37.1) 12/23/18 12:50 - Constitutional Appears: Cachectic - Head Exam Head Exam: ATRAUMATIC - Eye Exam Eye Exam: Normal appearance - Respiratory Exam Respiratory Exam: Decreased Breath Sounds - Cardiovascular Exam Cardiovascular Exam: +S1, +S2 - GI/Abdominal Exam GI & Abdominal Exam: Normal Bowel Sounds Assessment and Plan (1) Breast cancer Assessment & Plan: stage IV f/u ER/AR/HER2 status outpatient treatment Status: Acute (2) Anemia Assessment & Plan: chronic disease Status: Acute
--- NOTE | 2018-12-30 20:36 | CP.PCM.PN ---
Subjective - Date & Time of Evaluation Date of Evaluation: 12/28/18 Time of Evaluation: 13:00 - Subjective Subjective: On bipap Objective - Vital Signs/Intake and Output Vital Signs (last 24 hours): Temp Pulse Resp BP Pulse Ox 99.9 F H 86 12 47/23 L 77 L 12/30/18 16:00 12/30/18 16:00 12/30/18 16:00 12/30/18 16:00 12/30/18 16:00 - Medications Medications: Current Medications Acetaminophen (Tylenol 650 Mg Supp) 650 mg ME Q6 PRN PRN Reason: Fever >100.4 F Morphine Sulfate 100 mg/ (Sodium Chloride) 100 mls @ 2 mls/hr IV .Q24H ESTEBAN; Protocol Last Admin: 12/30/18 09:42 Dose: 2 mg/hr, 2 mls/hr Lorazepam (Ativan) 1 mg IVP Q6 PRN PRN Reason: Agitation Ondansetron HCl (Zofran Inj) 4 mg IVP Q6 PRN PRN Reason: Nausea/Vomiting Scopolamine (Transderm-Scop) 1 patch TD Q3D ESTEBAN - Labs Labs: 12/30/18 04:53 12/30/18 04:53 PT 13.9 Seconds (9.8-13.1) H 12/23/18 12:50 INR 1.2 12/23/18 12:50 APTT 36.8 Seconds (25.6-37.1) 12/23/18 12:50 - Head Exam Head Exam: ATRAUMATIC - Eye Exam Eye Exam: Normal appearance - ENT Exam ENT Exam: Mucous Membranes Dry - Respiratory Exam Respiratory Exam: Decreased Breath Sounds - Cardiovascular Exam Cardiovascular Exam: +S1, +S2 - GI/Abdominal Exam GI & Abdominal Exam: Normal Bowel Sounds Assessment and Plan (1) Breast cancer Assessment & Plan: stage IV ER positive will start tamoxifen Status: Acute (2) Anemia Assessment & Plan: chronic disease Status: Acute
--- NOTE | 2018-12-30 20:37 | CP.PCM.PN ---
Subjective - Date & Time of Evaluation Date of Evaluation: 12/29/18 Time of Evaluation: 12:00 - Subjective Subjective: On bipap Objective - Vital Signs/Intake and Output Vital Signs (last 24 hours): Temp Pulse Resp BP Pulse Ox 99.9 F H 86 12 47/23 L 77 L 12/30/18 16:00 12/30/18 16:00 12/30/18 16:00 12/30/18 16:00 12/30/18 16:00 - Medications Medications: Current Medications Acetaminophen (Tylenol 650 Mg Supp) 650 mg AR Q6 PRN PRN Reason: Fever >100.4 F Morphine Sulfate 100 mg/ (Sodium Chloride) 100 mls @ 2 mls/hr IV .Q24H ESTEBAN; Protocol Last Admin: 12/30/18 09:42 Dose: 2 mg/hr, 2 mls/hr Lorazepam (Ativan) 1 mg IVP Q6 PRN PRN Reason: Agitation Ondansetron HCl (Zofran Inj) 4 mg IVP Q6 PRN PRN Reason: Nausea/Vomiting Scopolamine (Transderm-Scop) 1 patch TD Q3D ESTEBAN - Labs Labs: 12/30/18 04:53 12/30/18 04:53 PT 13.9 Seconds (9.8-13.1) H 12/23/18 12:50 INR 1.2 12/23/18 12:50 APTT 36.8 Seconds (25.6-37.1) 12/23/18 12:50 - Head Exam Head Exam: ATRAUMATIC - Eye Exam Eye Exam: Normal appearance - ENT Exam ENT Exam: Mucous Membranes Dry - Respiratory Exam Respiratory Exam: Decreased Breath Sounds - Cardiovascular Exam Cardiovascular Exam: +S1, +S2 - GI/Abdominal Exam GI & Abdominal Exam: Normal Bowel Sounds Assessment and Plan (1) Breast cancer Assessment & Plan: stage IV ER positive; started on tamoxifen Status: Acute (2) Anemia Assessment & Plan: chronic disease Status: Acute
--- NOTE | 2018-12-30 20:38 | CP.PCM.PN ---
Subjective - Date & Time of Evaluation Date of Evaluation: 12/30/18 Time of Evaluation: 14:00 - Subjective Subjective: On bipap, somnolent Objective - Vital Signs/Intake and Output Vital Signs (last 24 hours): Temp Pulse Resp BP Pulse Ox 99.9 F H 86 12 47/23 L 77 L 12/30/18 16:00 12/30/18 16:00 12/30/18 16:00 12/30/18 16:00 12/30/18 16:00 - Medications Medications: Current Medications Acetaminophen (Tylenol 650 Mg Supp) 650 mg PA Q6 PRN PRN Reason: Fever >100.4 F Morphine Sulfate 100 mg/ (Sodium Chloride) 100 mls @ 2 mls/hr IV .Q24H ESTEBAN; Protocol Last Admin: 12/30/18 09:42 Dose: 2 mg/hr, 2 mls/hr Lorazepam (Ativan) 1 mg IVP Q6 PRN PRN Reason: Agitation Ondansetron HCl (Zofran Inj) 4 mg IVP Q6 PRN PRN Reason: Nausea/Vomiting Scopolamine (Transderm-Scop) 1 patch TD Q3D ESTEBAN - Labs Labs: 12/30/18 04:53 12/30/18 04:53 PT 13.9 Seconds (9.8-13.1) H 12/23/18 12:50 INR 1.2 12/23/18 12:50 APTT 36.8 Seconds (25.6-37.1) 12/23/18 12:50 - Head Exam Head Exam: ATRAUMATIC - Eye Exam Eye Exam: Normal appearance - ENT Exam ENT Exam: Mucous Membranes Dry - Respiratory Exam Respiratory Exam: Decreased Breath Sounds - Cardiovascular Exam Cardiovascular Exam: +S1, +S2 - GI/Abdominal Exam GI & Abdominal Exam: Normal Bowel Sounds Assessment and Plan (1) Breast cancer Assessment & Plan: stage IV ER positive, on tamoxifen DNR/DNI Status: Acute (2) Anemia Assessment & Plan: chronic disease Status: Acute
== END 2018-12-30 22:25 | DRG 199 ==
LOC: SUPCPDRO 11:33 → H.ER 11:33 → OBSVTOIN 15:03 → H.ERHOLD 15:03 → H.TEL 21:25 → H.ICU/CCU 12-27 20:12
PROVIDERS: ADMIT Internal Medicine; ATTEND Internal Medicine
PROC: 3E0F7GC Introduction of Other Therapeutic Substance into Respiratory Tract, Via Natural or Artificial Opening (ICD-10-PCS; 2018-12-23)
PROC: 5A09357 Assistance with Respiratory Ventilation, Less than 24 Consecutive Hours, Continuous Positive Airway Pressure (ICD-10-PCS; principal; 2018-12-28)
DX: J93.83 Other pneumothorax (principal); J18.1 Lobar pneumonia, unspecified organism; J96.01 Acute respiratory failure with hypoxia; J96.02 Acute respiratory failure with hypercapnia; J91.0 Malignant pleural effusion; C78.01 Secondary malignant neoplasm of right lung; C78.02 Secondary malignant neoplasm of left lung; C79.51 Secondary malignant neoplasm of bone; E87.4 Mixed disorder of acid-base balance; J98.11 Atelectasis; G89.3 Neoplasm related pain (acute) (chronic); D63.8 Anemia in other chronic diseases classified elsewhere; Z17.0 Estrogen receptor positive status [ER+]; D72.818 Other decreased white blood cell count; Z51.5 Encounter for palliative care; Z66 Do not resuscitate; Z79.810 Long term (current) use of selective estrogen receptor modulators (SERMs); Z85.3 Personal history of malignant neoplasm of breast; Z92.3 Personal history of irradiation; Z99.81 Dependence on supplemental oxygen